=== PATIENT | male | born 1975 | race Caucasian/White ===

== ENCOUNTER → 2016-09-30 | Outpatient (CLI) | payer BC ==
--- NOTE | 2016-10-01 02:01 | RADIOLOGY REPORT (SQ) ---
EXAM DESCRIPTION: MRI CERVICAL SPINE WITHOUT COMPLETED DATE/TIME: 09/30/2016 6:43 pm REASON FOR STUDY: CERVICAL RADICULOPATHY M54.12 RADICULOPATHY, CERVICAL REGION COMPARISON: 11/18/2015 TECHNIQUE: Sagittal and Axial imaging includes T1, T2, STIR and gradient echo sequences. LIMITATIONS: None. FINDINGS: ALIGNMENT: Slight reversal the normal cervical lordotic curve. VERTEBRAE: Intact. BONE MARROW: Mild reactive endplate changes C5-6. DISCS: Loss of height and T2 signal C5-6. HARDWARE: None in the spine. CORD AND BASE OF BRAIN: Normal in size and signal intensity. SOFT TISSUES: No soft tissue masses. C1-C2: No significant spinal stenosis. C2-C3: No significant spinal stenosis or exit foraminal stenosis. C3-C4: Small disc osteophyte complex predominantly central and left paracentral. Mild anterior gopi ening of thecal sac in narrowing of the left exit foramina. C4-C5: Minimal central disc osteophyte complex. C5-C6: Disc osteophyte complex asymmetric left with mild narrowing of the left exit foramina. Mild a nterior flattening of the thecal sac. C6-C7: Large left-sided disc osteophyte complex similar to previous. Leftward flattening of the thec al sac and marked narrowing of the left exit foramina. C7-T1: No significant spinal stenosis or exit foraminal stenosis. UPPER THORACIC: Incompletely imaged. No significant spinal stenosis or exit foraminal stenosis. OTHER: No other significant finding. IMPRESSION: Significant finding at C6-7 is a large left-sided disc osteophyte complex with marked na rrowing of the left exit foramina. Similar to previous MRI. TECHNICAL DOCUMENTATION: JOB ID: [id number]- All Rights Reserved
== END ==
LOC: RAD 18:08
PROVIDERS: ATTEND Family Medicine
DX: M54.12 Radiculopathy, cervical region (principal)
CPT/HCPCS: 72141

== ENCOUNTER 2017-04-14 15:30 | Emergency (ER) | payer MEDICARE, MEDICAID ==
[2017-04-14] MEDS ORDERED: ASPIRIN 81 MG TABLET, CHEWABLE PO ONE (16:05)
--- NOTE | 2017-04-14 16:05 | ER Document Report ---
ED Medical Screen (RME) - General Chief Complaint: Breathing Difficulty Stated Complaint: BREATHING PROBLEMS Time Seen by Provider: 04/14/17 16:04 Notes: 41-year-old male. History of open heart surgery. History of [place]. Two-way bypass recently. Complaining of chest pain and shortness of breath. Familial hyperlipidemia. On multiple medications for his lipid pathology.. Patient states it feels like when he had a pneumothorax. he is a smoker. I have greeted and performed a rapid initial assessment of this patient. A comprehensive ED assessment and evaluation of the patient, analysis of test results and completion of the medical decision making process will be conducted by additional ED providers. TRAVEL OUTSIDE OF THE [place] IN LAST 30 DAYS: No - Related Data Allergies/Adverse Reactions: gabapentin [From Neurontin] Allergy (Verified 04/17/15 01:33) Past Medical History - Social History Chew tobacco use (# tins/day): No Frequency of alcohol use: None Drug Abuse: None - Past Medical History Cardiac Medical History: Reports: Hx Heart Attack, Hx Hypercholesterolemia, Hx Heart Murmur Pulmonary Medical History: Reports: Hx Pneumonia Denies: Hx Tuberculosis Neurological Medical History: Denies: Hx Seizures Renal/ Medical History: Reports: Hx Kidney Stones - mar 2010. Denies: Hx Benign Prostatic Hyperplasia, Hx End Stage Renal Disease, Hx Peritoneal Dialysis Malignancy Medical History: Denies Hx Leukemia GI Medical History: Reports: Hx Gastritis, Hx Gastroesophageal Reflux Disease, Hx Hiatal Hernia. Denies: Hx Crohn's Disease, Hx Irritable Bowel, Hx Liver Failure, Hx Pancreatitis, Hx Ulcer Musculoskeltal Medical History: Reports Hx Arthritis - back, Denies Hx Fibromyalgia, Denies Hx Muscular Dystrophy, Reports Hx Musculoskeletal Deformity , Reports Hx Musculoskeletal Trauma Psychiatric Medical History: Reports: Hx Attention Deficit Hyperactivity Disorder, Hx Bipolar Disorder, Hx Depression, Hx Post Traumatic Stress Disorder Denies: Hx Schizophrenia Traumatic Medical History: Reports: Hx Fractures - hand, left foot Infectious Medical History: Denies: Hx HIV Past Surgical History: Denies: Hx Colostomy, Hx Pacemaker - Immunizations Immunizations up to date: Yes Hx Diphtheria, Pertussis, Tetanus Vaccination: Yes Physical Exam - Vital signs Vitals: Temp Pulse Resp BP Pulse Ox 99.3 F 96 18 115/75 97 04/14/17 15:39 04/14/17 15:39 04/14/17 15:39 04/14/17 15:39 02/02/18 15:39 Course - Vital Signs Vital signs: Temp Pulse Resp BP Pulse Ox 99.3 F 96 18 115/75 97 04/14/17 15:39 04/14/17 15:39 04/14/17 15:39 04/14/17 15:39 04/14/17 15:39
--- NOTE | 2017-04-14 16:45 | RADIOLOGY REPORT (SQ) ---
EXAM DESCRIPTION: CHEST SINGLE VIEW COMPLETED DATE/TIME: 04/14/2017 4:30 pm REASON FOR STUDY: chest pain,sob COMPARISON: 01/28/2012 EXAM PARAMETERS: NUMBER OF VIEWS: One view. TECHNIQUE: Single frontal radiographic view of the chest acquired. RADIATION DOSE: NA LIMITATIONS: None. FINDINGS: LUNGS AND PLEURA: There is a small left pleural effusion, and patchy left basilar airspace disease. Right lung well inflated and clear. No right pleural effusion. No right or left pneumothorax MEDIASTINUM AND HILAR STRUCTURES: No masses. Contour normal. HEART AND VASCULAR STRUCTURES: No cardiomegaly. Sternotomy and CABG BONES: No acute findings. HARDWARE: None in the chest. OTHER: No other significant finding. IMPRESSION: Small left pleural effusion with left retrocardiac airspace disease. TECHNICAL DOCUMENTATION: JOB ID: [id number] [employer]- All Rights Reserved
[2017-04-14 16:57] LABS: ABSOLUTE EOSINOPHILS # (AUTO) 0.1 10^3/uL (0.0-0.6); ABSOLUTE LYMPHOCYTES (AUTO) 1.3 10^3/uL (0.5-4.7); ABSOLUTE MONOCYTES (AUTO) 1.3 10^3/uL (0.1-1.4); ABSOLUTE NEUT (AUTO) 12.8 10^3/uL (1.7-8.2); BASOPHILS % (AUTO) 0.1 % (0-2); EOSINOPHILS % (AUTO) 0.5 % (0-6); HEMATOCRIT 38.2 % (37.9-51.0); HEMOGLOBIN 12.5 g/dL (13.5-17.0); LYMPHOCYTES % (AUTO) 8.6 % (13-45); MEAN CORPUSCULAR HEMOGLOBIN 25.2 pg (27.0-33.4); MEAN CORPUSCULAR HGB CONC 32.7 g/dL (32.0-36.0); MEAN CORPUSCULAR VOLUME 77 fl (80-97); MONOCYTES % (AUTO) 8.1 % (3-13); PLATELET COUNT 256 10^3/uL (150-450); RED BLOOD COUNT 4.97 10^6/uL (4.35-5.55); RED CELL DISTRIBUTION WIDTH 16.3 % (11.5-14.0); SEGMENTED NEUTROPHILS % (AUTO) 82.7 % (42-78); TOTAL CELLS COUNTED % (AUTO) 100 %; WHITE BLOOD COUNT 15.4 10^3/uL (4.0-10.5)
[2017-04-14] MEDS ORDERED: NORMAL SALINE 1000 ML 1,000 ML IV ONE ×2 (16:57)
[2017-04-14 17:16] LABS: ALANINE AMINOTRANSFERASE 51 U/L (21-72); ALBUMIN 4.2 g/dL (3.5-5.0); ALKALINE PHOSPHATASE 107 U/L (38-126); ANION GAP 9 (5-19); ASPARTATE AMINO TRANSFERASE 32 U/L (17-59); BILIRUBIN,DIRECT 0.4 mg/dL (0.0-0.4); BLOOD UREA NITROGEN 9 mg/dL (7-20); CALCIUM 9.9 mg/dL (8.4-10.2); CARBON DIOXIDE 29 mmol/L (22-30); CHLORIDE 103 mmol/L (98-107); CREATINE KINASE 95 U/L (55-170); GLUCOSE 123 mg/dL (75-110); POTASSIUM 4.6 mmol/L (3.6-5.0); SODIUM 140.8 mmol/L (137-145); TOTAL PROTEIN 6.6 g/dL (6.3-8.2)
[2017-04-14 17:26] LABS: CREATINE KINASE MB 0.31 ng/mL (<4.55); TROPONIN I 0.023 ng/mL
--- NOTE | 2017-04-14 18:21 | EKG REPORT ---
SEVERITY:- ABNORMAL ECG - SINUS RHYTHM NONSPECIFIC ST-T CHANGES LATERAL LEADS, NEW FROM 04/17/15 EKG : Confirmed by: Mann Irizarry MD 14-Apr-2017 18:20:29
[2017-04-14 18:28] LABS: A TYPE INFLUENZA AG NEGATIVE (NEGATIVE); B INFLUENZA AG NEGATIVE (NEGATIVE)
--- NOTE | 2017-04-14 19:08 | RADIOLOGY REPORT (SQ) ---
EXAM DESCRIPTION: CTA CHEST COMPLETED DATE/TIME: 04/14/2017 6:50 pm REASON FOR STUDY: recent by pass cp sob COMPARISON: None. TECHNIQUE: CT scan of the chest performed using helical scanning technique with dynamic intravenous contrast injection. Images reviewed with lung, soft tissue and bone windows. Reconstructed coronal and sagittal MPR images reviewed. Additional 3 dimensional post-processing performed to develop Maximal Intensity Projection images (TN P). All images stored on PACS. All CT scanners at this facility use dose modulation, iterative reconstruction, and/or weight based d osing when appropriate to reduce radiation dose to as low as reasonably achievable (ALARA). [facility]: Dose Right [facility]: CareDose [facility]: Dose Right [facility]: Teradose 4D [facility]: [employer] CONTRAST TYPE AND DOSE: contrast/concentration: Isovue 370.00 mg/ml; Total Contrast Delivered: 76.0 ml; Total Saline Delivered: 80.0 ml Contrast bolus adequate for pulmonary arteries and aorta. RENAL FUNCTION: BUN 9 creatinine 0.97. RADIATION DOSE: CT Rad equipment meets quality standard of care and radiation dose reduction techniq ues were employed. CTDIvol: 16.7 - 24.8 mGy. DLP: 604 mGy-cm. . LIMITATIONS: None. FINDINGS: LUNGS AND PLEURA: Small right pleural effusion and moderate left pleural effusion. Basila r atelectasis, left greater than right. AORTA AND GREAT VESSELS: No aneurysm. No dissection. HEART: Pericardial effusion. No significant coronary artery calcifications. PULMONARY ARTERIES: No emboli visualized in the main pulmonary arteries or the segmental branches. HILAR AND MEDIASTINAL STRUCTURES: No identified masses or abnormal nodes. HARDWARE: Sternotomy wires. Surgical clips. UPPER ABDOMEN: No significant findings. Limited exam. THYROID AND OTHER SOFT TISSUES: No masses. No adenopathy. BONES: No acute or significant finding. 3D MIPS: Confirm above findings. OTHER: No other significant finding. IMPRESSION: 1. NORMAL CTA OF THE CHEST. NO PULMONARY EMBOLI. 2. SMALL RIGHT PLEURAL EFFUSION AND MODERATE LEFT PLEURAL EFFUSION. BASILAR ATELECTASIS. 3. PERICARDIAL EFFUSION. COMMENT: Quality ID # [id number]: Final reports with documentation of one or more dose reduction techniques (e.g., Automated exposure control, adjustment of the mA and/or kV according to patient size, use of iterative reconstruction technique) TECHNICAL DOCUMENTATION: JOB ID: [id number]- All Rights Reserved
[2017-04-14] MEDS ORDERED: FUROSEMIDE INJ/PF 20 MG/2 ML SDV IV ONE (21:13)
[2017-04-14] MEDS ORDERED: FENTANYL CITRATE INJ/PF 100 MCG/2 ML AMPUL IV ONE (21:13)
[2017-04-14 23:12] VITALS: BP 103/69
--- NOTE | 2017-04-15 00:34 | ER Document Report ---
ED General - General Chief Complaint: Breathing Difficulty Stated Complaint: BREATHING PROBLEMS Time Seen by Provider: 04/14/17 16:04 TRAVEL OUTSIDE OF THE [place] IN LAST 30 DAYS: No - HPI Patient complains to provider of: Difficulty breathing Notes: Patient coming in with difficulty breathing ongoing for the last 2 days worse today. Patient states recently had bypass surgery performed at [facility] and two- vessel performed in January. Patient states that she was on Lasix and blood thinning medication however currently is not on any medication. Patient denies any recent travel. Denies any fevers or chills denies cough. Patient upon my evaluation does look to be uncomfortable patient does complain of some back pain. Patient denies any anterior chest wall pain. Patient states shortness of breath - Related Data Allergies/Adverse Reactions: gabapentin [From Neurontin] Allergy (Verified 04/17/15 01:33) Past Medical History - Social History Smoking Status: Current Some Day Smoker Chew tobacco use (# tins/day): No Frequency of alcohol use: None Drug Abuse: None Family History: Reviewed & Not Pertinent Patient has suicidal ideation: No Patient has homicidal ideation: No - Past Medical History Cardiac Medical History: Reports: Hx Heart Attack, Hx Hypercholesterolemia, Hx Heart Murmur Pulmonary Medical History: Reports: Hx Pneumonia Denies: Hx Tuberculosis Neurological Medical History: Denies: Hx Seizures Renal/ Medical History: Reports: Hx Kidney Stones - mar 2010. Denies: Hx Benign Prostatic Hyperplasia, Hx End Stage Renal Disease, Hx Peritoneal Dialysis Malignancy Medical History: Denies Hx Leukemia GI Medical History: Reports: Hx Gastritis, Hx Gastroesophageal Reflux Disease, Hx Hiatal Hernia. Denies: Hx Crohn's Disease, Hx Irritable Bowel, Hx Liver Failure, Hx Pancreatitis, Hx Ulcer Musculoskeltal Medical History: Reports Hx Arthritis - back, Denies Hx Fibromyalgia, Denies Hx Muscular Dystrophy, Reports Hx Musculoskeletal Deformity , Reports Hx Musculoskeletal Trauma Psychiatric Medical History: Reports: Hx Attention Deficit Hyperactivity Disorder, Hx Bipolar Disorder, Hx Depression, Hx Post Traumatic Stress Disorder Denies: Hx Schizophrenia Traumatic Medical History: Reports: Hx Fractures - hand, left foot Infectious Medical History: Denies: Hx HIV Past Surgical History: Denies: Hx Colostomy, Hx Pacemaker - Immunizations Immunizations up to date: Yes Hx Diphtheria, Pertussis, Tetanus Vaccination: Yes Review of Systems - Review of Systems Constitutional: No symptoms reported EENT: No symptoms reported Cardiovascular: No symptoms reported Respiratory: Short of breath Gastrointestinal: No symptoms reported Genitourinary: No symptoms reported Male Genitourinary: No symptoms reported Musculoskeletal: No symptoms reported Skin: No symptoms reported Hematologic/Lymphatic: No symptoms reported Neurological/Psychological: No symptoms reported -: Yes All other systems reviewed and negative Physical Exam - Vital signs Vitals: Temp Pulse Resp BP Pulse Ox 99.3 F 96 18 115/75 97 04/14/17 15:39 04/14/17 15:39 04/14/17 15:39 04/14/17 15:39 04/14/17 15:39 Interpretation: Hypotensive, Tachycardic - General General appearance: Appears well, Alert - HEENT Head: Normocephalic, Atraumatic Eyes: Normal Pupils: PERRL - Respiratory Respiratory status: No respiratory distress Chest status: Nontender Breath sounds: Normal Chest palpation: Normal - Cardiovascular Rhythm: Regular, Tachycardia Heart sounds: Normal auscultation Murmur: No - Abdominal Inspection: Normal Distension: No distension Bowel sounds: Normal Tenderness: Nontender Organomegaly: No organomegaly - Back Back: Normal, Nontender - Extremities General upper extremity: Normal inspection, Nontender, Normal color, Normal ROM , Normal temperature General lower extremity: Normal inspection, Nontender, Normal color, Normal ROM , Normal temperature, Normal weight bearing. No: Tai's sign - Neurological Neuro grossly intact: Yes Cognition: Normal Orientation: AAOx4 [place] Coma Scale Eye Opening: Spontaneous Mo Coma Scale Verbal: Oriented Mo Coma Scale Motor: Obeys Commands Mo Coma Scale Total: 15 Speech: Normal Motor strength normal: LUE, RUE, LLE, RLE Sensory: Normal - Psychological Associated symptoms: Normal affect, Normal mood - Skin Skin Temperature: Warm Skin Moisture: Dry Skin Color: Normal Course - Re-evaluation Re-evalutation: 04/15/17 00:31 pt laboratory studies not reveal any significant pathology except for an elevated white count. Patient states chest x-ray possibly showed some possible retrocardiac airspace disease however due to the patient's recent surgery tachycardia low blood pressure felt that a CTA was warranted. CTA showed right and left pleural effusions with a moderate pericardial effusion. Because of tachycardia and marginal blood pressure concern for possible tap and not there and other significant pathology. Initially contacted [facility] waterworks chief engineer byron. No direct recommendations were given during a conversation. I did discuss with her hospitalist however due to lack of cardiology our facility were not able to care for this patient therefore I contacted [facility] again recommended that we transfer the patient to their facility is that this was our scope of practice we do not have especially coverage to admit this patient needs as I am concerned for possible decompensation with the patient's pericardial effusion patient was instructed patient time of transfer stable able to give a thumbs up vital signs no significant change - Vital Signs Vital signs: Temp Pulse Resp BP Pulse Ox 99.9 F 119 H 22 H 103/69 94 04/14/17 23:18 04/14/17 23:18 04/14/17 23:18 04/14/17 23:18 04/14/17 23:18 - Laboratory Result Diagrams: 04/14/17 16:37 04/14/17 16:37 Laboratory results interpreted by me: 04/14/17 04/14/17 04/14/17 16:37 16:37 16:37 WBC 15.4 H Hgb 12.5 L MCV 77 L MCH 25.2 L RDW 16.3 H Seg Neutrophils % 82.7 H Lymphocytes % 8.6 L Absolute Neutrophils 12.8 H Glucose 123 H Total Bilirubin 2.0 H NT-Pro-B Natriuret Pep 565 H Discharge - Discharge Clinical Impression: Pericardial effusion, Bilateral pleural effusion Dyspnea Qualifiers: Dyspnea type: unspecified Qualified Code(s): R06.00 - Dyspnea, unspecified Condition: Stable Disposition: [facility]
== END 2017-04-14 23:17 | disposition short-term general hospital (02) ==
LOC: ER 15:30
DX: J90 Pleural effusion, not elsewhere classified (principal); R06.00 Dyspnea, unspecified; F17.200 Nicotine dependence, unspecified, uncomplicated; E78.00 Pure hypercholesterolemia, unspecified; I25.2 Old myocardial infarction
CPT/HCPCS: 93005; 99285; 96361; 96374; 96375; 36415; 82553; 82550; 85025; 80053; 84484; 87804; 83880; 71045; 71275; 93010; A9270; J3010; J1940; J7030

== ENCOUNTER 2017-06-20 04:31 | Emergency (ER) | payer MEDICARE, MEDICAID ==
--- NOTE | 2017-06-20 04:52 | ER Document Report ---
Doctor's Note Notes: 06/20/17 04:51 Performed a quick triage evaluation the patient. Patient is a 41-year-old male with a history of previous fluid around the lungs and heart as well as previous pneumothorax. These occurred after he had coronary bypass surgery in January of last year. He says over last 3 days he has had progressive worsening shortness of breath and also some pain when he takes a deep breath more in the right side. No other chest pain. Said he did have some chills earlier today but did not check his temp. On exam his lung [place] are clear. He is in no distress. I have ordered blood work as well as x-ray of his chest and EKG.
--- NOTE | 2017-06-20 05:08 | RADIOLOGY REPORT (SQ) ---
EXAM DESCRIPTION: CHEST SINGLE VIEW CLINICAL HISTORY: 41 years Male, dyspnea COMPARISON: 2.2.18 NUMBER OF VIEWS/TECHNIQUE: 1/AP FINDINGS: Normal lung volume, clear parenchyma, normal cardiac silhouette, and intact bony thorax. Sternotomy. IMPRESSION: No acute cardiopulmonary findings.
[2017-06-20 05:30] LABS: ABSOLUTE EOSINOPHILS # (AUTO) 0.2 10^3/uL (0.0-0.6); ABSOLUTE MONOCYTES (AUTO) 1.4 10^3/uL (0.1-1.4); ABSOLUTE NEUT (AUTO) 9.5 10^3/uL (1.7-8.2); BASOPHILS % (AUTO) 0.3 % (0-2); EOSINOPHILS % (AUTO) 1.4 % (0-6); HEMATOCRIT 39.4 % (37.9-51.0); HEMOGLOBIN 12.8 g/dL (13.5-17.0); LYMPHOCYTES % (AUTO) 15.4 % (13-45); MEAN CORPUSCULAR HEMOGLOBIN 25.3 pg (27.0-33.4); MEAN CORPUSCULAR HGB CONC 32.6 g/dL (32.0-36.0); MEAN CORPUSCULAR VOLUME 78 fl (80-97); MONOCYTES % (AUTO) 10.6 % (3-13); PLATELET COUNT 229 10^3/uL (150-450); RED BLOOD COUNT 5.08 10^6/uL (4.35-5.55); RED CELL DISTRIBUTION WIDTH 16.4 % (11.5-14.0); SEGMENTED NEUTROPHILS % (AUTO) 72.3 % (42-78); TOTAL CELLS COUNTED % (AUTO) 100 %; WHITE BLOOD COUNT 13.2 10^3/uL (4.0-10.5)
[2017-06-20 05:37] LABS: INTERNATIONAL RATION (INR) 0.96; PROTHROMBIN TIME 13.3 SEC (11.4-15.4)
[2017-06-20 05:38] LABS: PARTIAL THROMBOPLASTIN TIME 33.9 SEC (23.5-35.8)
[2017-06-20 05:45] LABS: ALANINE AMINOTRANSFERASE 23 U/L (21-72); ALBUMIN 3.9 g/dL (3.5-5.0); ALKALINE PHOSPHATASE 64 U/L (38-126); ANION GAP 7 (5-19); ASPARTATE AMINO TRANSFERASE 16 U/L (17-59); BILIRUBIN,DIRECT 0.1 mg/dL (0.0-0.4); BILIRUBIN,TOTAL 0.8 mg/dL (0.2-1.3); BLOOD UREA NITROGEN 13 mg/dL (7-20); CALCIUM 9.5 mg/dL (8.4-10.2); CARBON DIOXIDE 29 mmol/L (22-30); CHLORIDE 105 mmol/L (98-107); GLUCOSE 131 mg/dL (75-110); POTASSIUM 3.9 mmol/L (3.6-5.0); SODIUM 140.8 mmol/L (137-145); TOTAL PROTEIN 5.9 g/dL (6.3-8.2)
--- NOTE | 2017-06-20 06:41 | ER Document Report ---
ED General - General Mode of Arrival: Ambulatory Information source: Patient TRAVEL OUTSIDE OF THE [place] IN LAST 30 DAYS: No <ROBERTO MCGILL - Last Filed: 06/20/17 15:24> <YENNIFER KLINE - Last Filed: 06/20/17 17:11> - General Chief Complaint: Shortness Of Breath Stated Complaint: DIFFICULTY BREATHING Time Seen by Provider: 06/20/17 04:50 Notes: Patient is a 41 year old male with a history of pericardial effusion, pneumothroax, coronary bypass and high cholesterol presents to the emergency department complaining of worsening shortness of breath onset 3 days ago. Patient states his shortness of breath is exacerbated when supine and relived when sitting up. He further states that his symptoms are similar to his previous pericardial effusion. Patients associated symptoms include chest pressure, vomiting x2 and fevers. Patient denies any cough, rhinorrhea, earaches or diarrhea. (ROBERTO MCGILL) - Related Data Allergies/Adverse Reactions: gabapentin [From Neurontin] Allergy (Verified 04/17/15 01:33) Past Medical History - General Information source: Patient - Social History Smoking Status: Current Every Day Smoker - attempting to quit Frequency of alcohol use: None Drug Abuse: Cocaine - previous use Family History: Reviewed & Not Pertinent Patient has suicidal ideation: No Patient has homicidal ideation: No - Past Medical History Cardiac Medical History: Reports: Hx Heart Attack, Hx Hypercholesterolemia, Hx Heart Murmur Pulmonary Medical History: Reports: Hx Pneumonia Renal/ Medical History: Reports: Hx Kidney Stones - mar 2010 GI Medical History: Reports: Hx Gastritis, Hx Gastroesophageal Reflux Disease, Hx Hiatal Hernia Musculoskeltal Medical History: Reports Hx Arthritis - back, Reports Hx Musculoskeletal Deformity, Reports Hx Musculoskeletal Trauma Psychiatric Medical History: Reports: Hx Attention Deficit Hyperactivity Disorder, Hx Bipolar Disorder, Hx Depression, Hx Post Traumatic Stress Disorder Traumatic Medical History: Reports: Hx Fractures - hand, left foot - Immunizations Immunizations up to date: Yes Hx Diphtheria, Pertussis, Tetanus Vaccination: Yes <ROBERTO MCGILL - Last Filed: 06/20/17 15:24> Review of Systems - Review of Systems Constitutional: See HPI, Fever - peak 100 EENT: No symptoms reported Cardiovascular: See HPI, Chest pain Respiratory: See HPI, Short of breath Gastrointestinal: See HPI, Vomiting Genitourinary: No symptoms reported Male Genitourinary: No symptoms reported Musculoskeletal: No symptoms reported Skin: No symptoms reported Hematologic/Lymphatic: No symptoms reported Neurological/Psychological: No symptoms reported -: Yes All other systems reviewed and negative <ROBERTO MCGILL - Last Filed: 06/20/17 15:24> Physical Exam <ROBERTO MCGILL - Last Filed: 06/20/17 15:24> <YENNIFER KLINE - Last Filed: 06/20/17 17:11> - Vital signs Vitals: Temp Pulse Resp BP Pulse Ox 99.3 F 91 20 101/64 95 06/20/17 04:35 06/20/17 04:35 06/20/17 04:35 06/20/17 04:35 06/20/17 04:35 - Notes Notes: GENERAL: Alert, interacts well. Appears uncomfortable. HEAD: Normocephalic, atraumatic. EYES: Pupils equal, round, and reactive to light. Extraocular movements intact. ENT: Oral mucosa moist, tongue midline. NECK: Full range of motion. Supple. Trachea midline. LUNGS: Expiratory rhonchi in the right lower lobes. No respiratory distress. HEART: Regular rate and rhythm. No murmurs, gallops, or rubs. ABDOMEN: Soft, non-tender. Non-distended. Bowel sounds present in all 4 quadrants. EXTREMITIES: Moves all 4 extremities spontaneously. No edema, radial and dorsalis pedis pulses 2/4 bilaterally. No cyanosis. NEUROLOGICAL: Alert and oriented x3. Normal speech. PSYCH: Appears mildly anxious. SKIN: Warm, dry, normal turgor. No rashes or lesions noted. (ARTEMROBERTO) Course - Laboratory Result Diagrams: 06/20/17 05:16 06/20/17 05:16 <ARTEM,ANNELISEJOANNE - Last Filed: 06/20/17 15:24> - Laboratory Result Diagrams: 06/20/17 05:16 06/20/17 05:16 <YENNIFER KLINE - Last Filed: 06/20/17 17:11> - Re-evaluation Re-evalutation: 06/20/17 11:46 CBC shows leukocytosis of 13.2, mild anemia with hemoglobin 12.8, platelets normal, coags normal, CMP unremarkable, troponin undetectable, ESR is elevated at 22, CRP elevated at 128.6. CTA of the chest reveals moderate pericardial effusion but no evidence of pulmonary embolism. Chest x-ray unremarkable. Discussed with Dr. Xavier who recommends echocardiogram, he read the echocardiogram and states that there is no evidence of tamponade but there is some evidence of restriction there is greater than 25% variation with inspiration and expiration. He states the patient can likely be treated as an outpatient unless the patient has fevers. Patient is currently complaining of sweats and chills at home as well as myalgias, temperature here does not meet fever criteria however at home he states he had a temperature of 100 point something but he does not remember the decimal. At this point I am concerned for the possibility of septic pericarditis and will consult with cardiology versus cardiothoracic surgery at [facility] for further guidance. Patient is not currently hypotensive, he is tachycardic but I feel this may be more related to pain. Does not meet sepsis criteria at this point. Patient will be given initial broad-spectrum antibiotic coverage in the form of cefepime. 06/20/17 13:02 I discussed the patient with Dr. Link from [facility] cardiology, he accepts the patient to his service, recommends holding off on antibiotics until they know exactly what is going on. Patient is continued to have pain and is now having nausea, patient will be given morphine and Zofran as well as gentle fluids. Patient has now developed a true fever 100.8 axillary. Patient will be given IV acetaminophen as well. 06/20/17 13:22 Patient now hypoxic with a pulse oximeter of 89% on room air, 2 L via nasal cannula has been added, he is responding well to this and is 95% on 2 L. Called the cardiac connection line at [facility] and updated Jhoana on changes and asked her to update Dr. Link. Requested that she ask if he wanted me to give antibiotics after all. Fluids have been stopped. 06/20/17 17:10 Patient has had no further decompensation, heart rate is 102, blood pressure is 112/87, pulse ox is 96% on 2 L. Patient is again given a another dose of morphine for pain along with Zofran. Patient's case has been signed over to Dr. Dillon. I did call to [facility] transfer center and they state they still expect a bed this evening, they have several other discharges and he is the next one waiting for a bed. EMTALA paperwork has been filled out. (YENNIFER KLINE ) - Vital Signs Vital signs: Temp Pulse Resp BP Pulse Ox 100.4 F 91 27 H 113/92 H 94 06/20/17 12:44 06/20/17 04:35 06/20/17 16:31 06/20/17 16:31 06/20/17 16:31 - Laboratory Laboratory results interpreted by me: 06/20/17 06/20/17 06/20/17 05:16 05:16 05:16 WBC 13.2 H Hgb 12.8 L MCV 78 L MCH 25.3 L RDW 16.4 H Absolute Neutrophils 9.5 H ESR 22 H Glucose 131 H AST 16 L C-Reactive Protein Total Protein 5.9 L 06/20/17 05:16 WBC Hgb MCV MCH RDW Absolute Neutrophils ESR Glucose AST C-Reactive Protein 128.6 H Total Protein - EKG Interpretation by Me Additional EKG results interpreted by me: 06/20/17 13:03 EKG shows sinus rhythm at a rate of 81, normal axis, normal intervals, no ST segment depressions, minimal ST segment elevation in lead III, no reciprocal changes per my interpretation. (YENNIFER KLINE) Discharge <ROBERTO MCGILL - Last Filed: 06/20/17 15:24> <YENNIFER KLINE - Last Filed: 06/20/17 17:11> - Discharge Clinical Impression: Pericardial effusion without cardiac tamponade Pericarditis Qualifiers: Pericarditis type: unspecified type Chronicity: acute Qualified Code(s): I30.9 - Acute pericarditis, unspecified Condition: Fair Disposition: [facility] Referrals: REY HERNANDEZ MD [Primary Care Provider] - Follow up as needed Scribe Attestation: 06/20/17 17:11 I personally performed the services described in the documentation, reviewed and edited the documentation which was dictated to the scribe in my presence, and it accurately records my words and actions. (YENNIFER KLINE) Scribe Documentation - Scribe Written by Scribe:: Rocky Mott, 06/20/2017 07:19 acting as scribe for :: Dandy <ROBERTO MCGILL - Last Filed: 06/20/17 15:24>
--- NOTE | 2017-06-20 07:27 | EKG REPORT ---
SEVERITY:- ABNORMAL ECG - SINUS RHYTHM NONSPECIFIC T ABNORMALITIES, LATERAL LEADS UNCHANGED FROM 04/14/17 EKG : Confirmed by: Mann Irizarry MD 20-Jun-2017 07:27:02
--- NOTE | 2017-06-20 07:32 | RADIOLOGY REPORT (SQ) ---
EXAM DESCRIPTION: CTA CHEST CLINICAL HISTORY: 41 years Male, pleuritic chest pain, SOB, EVAL PE COMPARISON: 2.2 TECHNIQUE: IV contrast. Multiplanar reformat. This exam was performed according to our departmental dose-optimization program, which includes automated exposure control, adjustment of the mA and/or kV according to patient size and/or use of iterative reconstruction technique. FINDINGS: Moderate pericardial fluid. No pulmonary embolus. No right ventricular strain. Sternotomy. Coronary arterial calcification stent. Inferior neck, axillae, mediastinum, lungs, airway, lymphatics, heart, vasculature, upper abdomen, and musculoskeleton appear otherwise unremarkable. Impression: Moderate pericardial fluid. No pulmonary embolus.
[2017-06-20] MEDS ORDERED: MORPHINE SULFATE 10 MG/ML INJ IV ONE ×4 (08:27→16:33)
--- NOTE | 2017-06-20 11:31 | XCELERA REPORT ---
[address] [address] Transthoracic Echocardiogram Report Name: TRINA CORBETT Age: 41 yrs Gender: Male : 1975 Patient Status: Emergency Patient Location: ER Study Date: 06/20/2017 08:31 AM Height: 68 in Weight: 193 lb BSA: 2.0 m2 Procedure: A complete two-dimensional transthoracic echocardiogram was performed (2D, M-mode, spectral and color flow Doppler). The study was technically adequate with some images being suboptimal in quality. Reason For Study: pericardial effusion and pericarditis Ordering Physician: YENNIFER KLINE Performed By: Ashli Farooq Interpretation Summary The left ventricle is grossly normal size. LV diastolic function could not be adequately assessed. Wall motion cannot be accurately commented on, but no definite regional wall motion abnormalities noted. The right ventricle is grossly normal size. There is normal right ventricular wall thickness. The right atrium is normal in size The left atrial size is normal. There is no mitral valve stenosis. There is a trace amount of mitral regurgitation There is no aortic valve stenosis No aortic regurgitation is present. There is a trace or physiologic amount of tricuspid regurgitation Tricuspid regurgitation jet envelope not well defined to measure RV systolic pressure accurately. The aortic root is not well visualized but is probably normal size. The inferior vena cava appeared normal and decreased > 50% with respiration (RAP 5-10 mmHg) Small pericardial effusion. There are no echocardiographic or Doppler indications for cardiac tamponade. Exaggerated respiratory variation noted in Mitral inflow suggestive of pericardial constricion but not definitive, clinical correlation requested. MMode/2D Measurements & Calculations RVDd: 2.9 cm LVIDd: 4.6 cm FS: 42.4 % Ao root diam: 3.2 cm IVSd: 0.94 cm LVIDs: 2.6 cm EDV(Teich): 97.2 ml LVPWd: 0.88 cmESV(Teich): 25.7 ml Ao root area: 8.2 cm2 EF(Teich): 73.5 % LVOT diam: 2.4 cm LVOT area: 4.5 cm2 Doppler Measurements & Calculations MV E max jj: MV dec slope: Ao V2 max: LV V1 max P.2 cm/sec 536.5 cm/sec2 152.3 cm/sec 5.4 mmHg MV A max jj: MV dec time: Ao max PG: LV V1 max: 72.3 cm/sec 0.18 sec 9.3 mmHg 115.9 cm/sec MV E/A: 1.3 NGHIA(V,D): 3.5 cm2 PA V2 max: TR max jj: 105.8 cm/sec 254.6 cm/sec PA max PG: TR max P.9 mmHg 4.5 mmHg Left Ventricle The left ventricle is grossly normal size. There is normal left ventricular wall thickness. The left ventricular ejection fraction is normal. LV diastolic function could not be adequately assessed. Wall motion cannot be accurately commented on, but no definite regional wall motion abnormalities noted. Right Ventricle The right ventricle is grossly normal size. There is normal right ventricular wall thickness. The right ventricular systolic function is normal. Atria The right atrium is normal in size. The left atrial size is normal. Interarterial septum not well visualized and not well dopplered. Cannot comment on ASD/PFO presence. Mitral Valve The mitral valve leaflets are sclerotic, but show no functional abnormalities. There is no mitral valve stenosis. There is a trace amount of mitral regurgitation. Aortic Valve The aortic valve is grossly normal. There is no aortic valve stenosis. No aortic regurgitation is present. Tricuspid Valve The tricuspid valve is not well visualized, but is grossly normal. There is no tricuspid stenosis. There is a trace or physiologic amount of tricuspid regurgitation. Tricuspid regurgitation jet envelope not well defined to measure RV systolic pressure accurately. Pulmonic Valve The pulmonic valve is not well visualized. Great Vessels The aortic root is not well visualized but is probably normal size. The inferior vena cava appeared normal and decreased > 50% with respiration (RAP 5-10 mmHg). Effusions Small pericardial effusion. There are no echocardiographic or Doppler indications for cardiac tamponade. : YENNIFER KLINE > Desi Xavier
[2017-06-20] MEDS ORDERED: CEFEPIME 2 GM/D5W RTU 2 GM/50 ML RTUPB IV ONE (11:47)
[2017-06-20] MEDS ORDERED: ONDANSETRON HCL INJ/PF 4 MG/2 ML SDV IV ONE ×2 (12:53→16:33)
[2017-06-20] MEDS ORDERED: NORMAL SALINE 1000 ML 1,000 ML IV ONE (12:53)
[2017-06-20] MEDS ORDERED: ACETAMINOPHEN 100 ML IV ONE (12:53)
[2017-06-20 20:25] VITALS: BP 104/79
== END 2017-06-20 21:24 | disposition short-term general hospital (02) ==
LOC: ER 04:31
DX: J90 Pleural effusion, not elsewhere classified (principal); I30.9 Acute pericarditis, unspecified; R00.0 Tachycardia, unspecified; R06.02 Shortness of breath; R50.9 Fever, unspecified; F17.200 Nicotine dependence, unspecified, uncomplicated; E78.00 Pure hypercholesterolemia, unspecified; Z95.1 Presence of aortocoronary bypass graft; Z87.442 Personal history of urinary calculi; I25.2 Old myocardial infarction
CPT/HCPCS: 93005; 96376; 99285; 96361; 96374; 96375; 96365; 36415; 87040; 85025; 85652; 85610; 85730; 86140; 80053; 84484; 93306; 71045; 71275; 93010; J2270; J2405; J7030; J0131

== ENCOUNTER 2017-07-11 14:49 | Emergency (ER) | payer MEDICARE, MEDICAID ==
--- NOTE | 2017-07-11 14:58 | ER Document Report ---
ED General - General Stated Complaint: HIGH BLOOD PRESSURE Time Seen by Provider: 07/11/17 14:54 Mode of Arrival: Medic Information source: Patient, PENDING SALE TO [facility] Records Notes: 41-year-old male history of pericardial effusion double bypass last heart catheterization January presents with complaints of low blood pressure generalized weakness. Patient was found by EMS to have a hear rate of 28, appeared to pale weak blood pressures 80/53. Patient himself denies having low heart rate except after his first cardiac surgery, patient is on metoprolol 25 mg twice daily which he states he has been taking appropriately Patient had recent CT which noted small effusion pericardial TRAVEL OUTSIDE OF THE [place] IN LAST 30 DAYS: No - HPI Onset: Just prior to arrival Onset/Duration: Sudden Quality of pain: No pain Severity: Moderate Pain Level: Denies Associated symptoms: Weakness, Other Exacerbated by: Denies Relieved by: Denies Similar symptoms previously: Yes Recently seen / treated by doctor: Yes - Related Data Allergies/Adverse Reactions: gabapentin [From Neurontin] Allergy (Verified 07/11/17 15:17) Past Medical History - Social History Smoking Status: Never Smoker Cigarette use (# per day): No Chew tobacco use (# tins/day): No Smoking Education Provided: No Family History: Reviewed & Not Pertinent - Past Medical History Cardiac Medical History: Reports: Hx Heart Attack, Hx Hypercholesterolemia, Hx Heart Murmur Pulmonary Medical History: Reports: Hx Pneumonia Denies: Hx Tuberculosis Neurological Medical History: Denies: Hx Seizures Renal/ Medical History: Reports: Hx Kidney Stones - mar 2010. Denies: Hx Benign Prostatic Hyperplasia, Hx End Stage Renal Disease, Hx Peritoneal Dialysis Malignancy Medical History: Denies Hx Leukemia GI Medical History: Reports: Hx Gastritis, Hx Gastroesophageal Reflux Disease, Hx Hiatal Hernia. Denies: Hx Crohn's Disease, Hx Irritable Bowel, Hx Liver Failure, Hx Pancreatitis, Hx Ulcer Musculoskeltal Medical History: Reports Hx Arthritis - back, Denies Hx Fibromyalgia, Denies Hx Muscular Dystrophy, Reports Hx Musculoskeletal Deformity , Reports Hx Musculoskeletal Trauma Psychiatric Medical History: Reports: Hx Attention Deficit Hyperactivity Disorder, Hx Bipolar Disorder, Hx Depression, Hx Post Traumatic Stress Disorder Denies: Hx Schizophrenia Traumatic Medical History: Reports: Hx Fractures - hand, left foot Infectious Medical History: Denies: Hx HIV Past Surgical History: Denies: Hx Colostomy, Hx Pacemaker - Immunizations Immunizations up to date: Yes Hx Diphtheria, Pertussis, Tetanus Vaccination: Yes Review of Systems - Review of Systems Notes: REVIEW OF SYSTEMS: CONSTITUTIONAL : Denies fever, chills, or sweats. Denies recent illness. EENT: Denies eye, ear, throat, or mouth pain or symptoms. Denies nasal or sinus congestion or discharge. Denies throat, tongue, or mouth swelling or difficulty swallowing. CARDIOVASCULAR: Denies chest pain. Denies palpitations or racing or irregular heart beat. Denies ankle edema. RESPIRATORY: Denies cough, cold, or chest congestion. Denies shortness of breath, difficulty breathing, or wheezing. GASTROINTESTINAL: Denies abdominal pain or distention. Denies nausea, vomiting , or diarrhea. Denies blood in vomitus, stools, or per rectum. Denies black, tarry stools. Denies constipation. GENITOURINARY: Denies difficulty urinating, painful urination, burning, frequency, blood in urine, or discharge. MUSCULOSKELETAL: Denies back or neck pain or stiffness. Denies joint pain or swelling. SKIN: Denies rash, lesions or sores. HEMATOLOGIC : Denies easy bruising or bleeding. LYMPHATIC: Denies swollen, enlarged glands. NEUROLOGICAL: Admits to generalized weakness PSYCHIATRIC: Denies anxiety or stress. Denies depression, suicidal ideation, or homicidal ideation. ALL OTHER SYSTEMS REVIEWED AND NEGATIVE. Dictation was performed using [employer] voice recognition software PHYSICAL EXAMINATION: GENERAL: Well-appearing, well-nourished and in no acute distress. HEAD: Atraumatic, normocephalic. EYES: Pupils equal round and reactive to light, extraocular movements intact, sclera anicteric, conjunctiva are normal. ENT: Nares patent, oropharynx clear without exudates. Moist mucous membranes. NECK: Normal range of motion, supple without lymphadenopathy LUNGS: Breath sounds clear to auscultation bilaterally and equal. No wheezes rales or rhonchi. HEART: Regular rate and rhythm without murmurs, bedside ultrasound performed by myself notes only a small pericardial effusion there is no cardiac tamponade noted ABDOMEN: Soft, nontender, nondistended abdomen. No guarding, no rebound. No masses appreciated. Musculoskeletal: Normal range of motion, no pitting or edema. No cyanosis. NEUROLOGICAL: Cranial nerves grossly intact. Normal speech, normal gait. Normal sensory, motor exams PSYCH: Normal mood, normal affect. SKIN: Warm, Dry, normal turgor, no rashes or lesions noted. Physical Exam - Vital signs Vitals: Temp Resp BP Pulse Ox 98.2 F 15 85/53 L 100 07/11/17 15:08 07/11/17 15:08 07/11/17 15:08 07/11/17 15:08 Course - Re-evaluation Re-evalutation: 07/11/17 15:21 Patient's evaluation is concerning especially with his bradycardia and hypotension, pt will be placed on transcutaneous pacer pads . 07/11/17 15:45 [facility] consulted for transfer 07/11/17 16:36 Dr Richards cardio willing to take patient but requests hospitlaist admission 07/11/17 18:04 dr leal will accept transfer to [facility] - Vital Signs Vital signs: Temp Pulse Resp BP Pulse Ox 98.2 F 17 89/51 L 98 07/11/17 15:08 07/11/17 17:31 07/11/17 17:31 07/11/17 17:31 - Laboratory Result Diagrams: 07/11/17 14:30 07/11/17 14:30 Laboratory results interpreted by me: 07/11/17 07/11/17 14:30 14:30 Hgb 12.8 L MCV 78 L MCH 25.5 L RDW 16.4 H Sodium 148.2 H Chloride 111 H Total Protein 5.8 L Critical Care Note - Critical Care Note Total time excluding time spent on procedures (mins): 48 Comments: minutes of critical care time spent in direct contact evaluating and reevaluating the patient, treating symptoms, reviewing labs and studies and speaking with family and consultants excluding any procedures Discharge - Discharge Clinical Impression: Bradycardia Hypotension Qualifiers: Hypotension type: unspecified hypotension type Qualified Code(s): I95.9 - Hypotension, unspecified Condition: Fair Disposition: [facility] Referrals: REY HERNANDEZ MD [Primary Care Provider] - Follow up as needed
[2017-07-11 15:01] LABS: ABSOLUTE EOSINOPHILS # (AUTO) 0.1 10^3/uL (0.0-0.6); ABSOLUTE LYMPHOCYTES (AUTO) 1.6 10^3/uL (0.5-4.7); ABSOLUTE MONOCYTES (AUTO) 0.7 10^3/uL (0.1-1.4); ABSOLUTE NEUT (AUTO) 6.9 10^3/uL (1.7-8.2); BASOPHILS % (AUTO) 0.3 % (0-2); EOSINOPHILS % (AUTO) 1.4 % (0-6); HEMOGLOBIN 12.8 g/dL (13.5-17.0); LYMPHOCYTES % (AUTO) 17.2 % (13-45); MEAN CORPUSCULAR HEMOGLOBIN 25.5 pg (27.0-33.4); MEAN CORPUSCULAR HGB CONC 32.9 g/dL (32.0-36.0); MEAN CORPUSCULAR VOLUME 78 fl (80-97); MONOCYTES % (AUTO) 7.4 % (3-13); PLATELET COUNT 281 10^3/uL (150-450); RED BLOOD COUNT 5.03 10^6/uL (4.35-5.55); RED CELL DISTRIBUTION WIDTH 16.4 % (11.5-14.0); SEGMENTED NEUTROPHILS % (AUTO) 73.7 % (42-78); TOTAL CELLS COUNTED % (AUTO) 100 %; WHITE BLOOD COUNT 9.4 10^3/uL (4.0-10.5)
[2017-07-11] MEDS ORDERED: NORMAL SALINE 1000 ML 1,000 ML IV ONE (15:01)
[2017-07-11 15:23] LABS: ALANINE AMINOTRANSFERASE 30 U/L (21-72); ALBUMIN 3.7 g/dL (3.5-5.0); ALKALINE PHOSPHATASE 48 U/L (38-126); ANION GAP 12 (5-19); ASPARTATE AMINO TRANSFERASE 19 U/L (17-59); BILIRUBIN,DIRECT 0.2 mg/dL (0.0-0.4); BILIRUBIN,TOTAL 0.9 mg/dL (0.2-1.3); BLOOD UREA NITROGEN 14 mg/dL (7-20); CALCIUM 9.4 mg/dL (8.4-10.2); CARBON DIOXIDE 25 mmol/L (22-30); CHLORIDE 111 mmol/L (98-107); CREATINE KINASE 139 U/L (55-170); GLUCOSE 99 mg/dL (75-110); POTASSIUM 4.5 mmol/L (3.6-5.0); SODIUM 148.2 mmol/L (137-145); TOTAL PROTEIN 5.8 g/dL (6.3-8.2)
[2017-07-11 15:34] LABS: CREATINE KINASE MB 0.78 ng/mL (<4.55)
[2017-07-11 15:35] LABS: TROPONIN I < 0.012 ng/mL
--- NOTE | 2017-07-11 16:15 | RADIOLOGY REPORT (SQ) ---
EXAM DESCRIPTION: CHEST 2 VIEWS COMPLETED DATE/TIME: 07/11/2017 4:04 pm REASON FOR STUDY: bradycardia, hx bypass, hypotension, per effusion COMPARISON: None. EXAM PARAMETERS: NUMBER OF VIEWS: two views TECHNIQUE: Digital Frontal and Lateral radiographic views of the chest acquired. RADIATION DOSE: NA LIMITATIONS: none FINDINGS: LUNGS AND PLEURA: No opacities, masses or pneumothorax. No pleural effusion. MEDIASTINUM AND HILAR STRUCTURES: No masses or contour abnormalities. HEART AND VASCULAR STRUCTURES: Heart normal size. No evidence for failure. BONES: No acute findings. HARDWARE: Patient is status post median sternotomy. Overlying monitoring devices are identified. OTHER: No other significant finding. IMPRESSION: NO ACUTE RADIOGRAPHIC FINDING IN THE CHEST. TECHNICAL DOCUMENTATION: JOB ID: [id number] [employer]- All Rights Reserved Reading location - IP/workstation name: [email or web address]
[2017-07-11 17:45] LABS: APPEARANCE,URINE CLEAR; BILIRUBIN,URINE NEGATIVE (NEGATIVE); COLOR,URINE YELLOW; GLUCOSE, URINE NEGATIVE (NEGATIVE); KETONES,URINE NEGATIVE (NEGATIVE); LEUKOCYTE ESTERASE,URINE NEGATIVE (NEGATIVE); NITRITE,URINE NEGATIVE (NEGATIVE); PROTEIN,URINE NEGATIVE (NEGATIVE); URINE SPECIFIC GRAVITY 1.017; UROBILINOGEN,URINE NEGATIVE mg/dL (<2.0)
[2017-07-11 21:15] VITALS: BP 89/60
--- NOTE | 2017-07-11 22:24 | EKG REPORT ---
SEVERITY:- NORMAL ECG - SINUS RHYTHM : Confirmed by: Desi Xavier 11-Jul-2017 22:24:11
== END 2017-07-11 22:10 | disposition short-term general hospital (02) ==
LOC: ER 14:49
DX: I95.9 Hypotension, unspecified (principal); R00.1 Bradycardia, unspecified; R53.1 Weakness; I25.2 Old myocardial infarction; Z95.1 Presence of aortocoronary bypass graft; Z79.899 Other long term (current) drug therapy; Z88.6 Allergy status to analgesic agent
CPT/HCPCS: 93005; 99291; 96360; 36415; 82553; 82550; 85025; 80053; 81001; 84484; 71046; 93010; J7030

== ENCOUNTER 2017-08-22 11:11 | Emergency (ER) | payer MEDICARE, MEDICAID ==
[2017-08-22] MEDS ORDERED: NORMAL SALINE 1000 ML 1,000 ML IV ONE (11:58)
[2017-08-22] MEDS ORDERED: MORPHINE SULFATE 10 MG/ML INJ IV ONE (11:58)
[2017-08-22] MEDS ORDERED: ONDANSETRON HCL INJ/PF 4 MG/2 ML SDV IV ONE (11:58)
--- NOTE | 2017-08-22 12:02 | ER Document Report ---
ED Medical Screen (RME) - General Chief Complaint: Abdominal Pain Stated Complaint: STOMACH PAIN Time Seen by Provider: 08/22/17 11:45 TRAVEL OUTSIDE OF THE [place] IN LAST 30 DAYS: No - HPI Notes: 08/22/17 12:01 Painful umbilical hernia out since last night unable to reduce in rme - Related Data Allergies/Adverse Reactions: gabapentin [From Neurontin] Allergy (Verified 08/22/17 11:14) Past Medical History - Social History Chew tobacco use (# tins/day): No Frequency of alcohol use: None Drug Abuse: None - Past Medical History Cardiac Medical History: Reports: Hx Heart Attack, Hx Hypercholesterolemia, Hx Heart Murmur Pulmonary Medical History: Reports: Hx Pneumonia Denies: Hx Tuberculosis Neurological Medical History: Denies: Hx Seizures Renal/ Medical History: Reports: Hx Kidney Stones - mar 2010. Denies: Hx Benign Prostatic Hyperplasia, Hx End Stage Renal Disease, Hx Peritoneal Dialysis Malignancy Medical History: Denies Hx Leukemia GI Medical History: Reports: Hx Gastritis, Hx Gastroesophageal Reflux Disease, Hx Hiatal Hernia. Denies: Hx Crohn's Disease, Hx Irritable Bowel, Hx Liver Failure, Hx Pancreatitis, Hx Ulcer Musculoskeltal Medical History: Reports Hx Arthritis - back, Denies Hx Fibromyalgia, Denies Hx Muscular Dystrophy, Reports Hx Musculoskeletal Deformity , Reports Hx Musculoskeletal Trauma Psychiatric Medical History: Reports: Hx Attention Deficit Hyperactivity Disorder, Hx Bipolar Disorder, Hx Depression, Hx Post Traumatic Stress Disorder Denies: Hx Schizophrenia Traumatic Medical History: Reports: Hx Fractures - hand, left foot Infectious Medical History: Denies: Hx HIV Past Surgical History: Reports: Hx Open Heart Surgery - 01/2017. Denies: Hx Colostomy, Hx Pacemaker - Immunizations Immunizations up to date: Yes Hx Diphtheria, Pertussis, Tetanus Vaccination: Yes Review of Systems - Review of Systems Gastrointestinal: Abdominal pain Physical Exam - Vital signs Vitals: Temp Pulse Resp BP Pulse Ox 98.1 F 70 18 104/80 98 08/22/17 11:48 08/22/17 11:48 08/22/17 11:48 08/22/17 11:48 08/22/17 11:48 - Abdominal Notes: Umbilical hernia that is red and tender to palpation Course - Re-evaluation Re-evalutation: 08/22/17 12:02 Will patient patient first available bed basic lab work and studies have been ordered - Vital Signs Vital signs: Temp Pulse Resp BP Pulse Ox 98.1 F 70 18 104/80 98 08/22/17 11:48 08/22/17 11:48 08/22/17 11:48 08/22/17 11:48 08/22/17 11:48 Doctor's Discharge - Discharge Referrals: REY HERNANDEZ MD [Primary Care Provider] - Follow up as needed
[2017-08-22] MEDS ORDERED: FENTANYL CITRATE INJ/PF 100 MCG/2 ML AMPUL IV ONE (12:27)
[2017-08-22] MEDS ORDERED: ONDANSETRON 4 MG TAB.RAPDIS PO ONE (12:28)
[2017-08-22 12:33] LABS: ABSOLUTE BASOPHILS # (AUTO) 0.1 10^3/uL (0.0-0.2); ABSOLUTE EOSINOPHILS # (AUTO) 0.2 10^3/uL (0.0-0.6); ABSOLUTE LYMPHOCYTES (AUTO) 3.1 10^3/uL (0.5-4.7); ABSOLUTE MONOCYTES (AUTO) 0.9 10^3/uL (0.1-1.4); ABSOLUTE NEUT (AUTO) 7.1 10^3/uL (1.7-8.2); BASOPHILS % (AUTO) 0.5 % (0-2); EOSINOPHILS % (AUTO) 1.7 % (0-6); HEMATOCRIT 41.1 % (37.9-51.0); HEMOGLOBIN 13.8 g/dL (13.5-17.0); LYMPHOCYTES % (AUTO) 27.4 % (13-45); MEAN CORPUSCULAR HEMOGLOBIN 26.4 pg (27.0-33.4); MEAN CORPUSCULAR HGB CONC 33.5 g/dL (32.0-36.0); MEAN CORPUSCULAR VOLUME 79 fl (80-97); MONOCYTES % (AUTO) 7.6 % (3-13); PLATELET COUNT 248 10^3/uL (150-450); RED BLOOD COUNT 5.21 10^6/uL (4.35-5.55); RED CELL DISTRIBUTION WIDTH 14.8 % (11.5-14.0); SEGMENTED NEUTROPHILS % (AUTO) 62.8 % (42-78); TOTAL CELLS COUNTED % (AUTO) 100 %; WHITE BLOOD COUNT 11.3 10^3/uL (4.0-10.5)
--- NOTE | 2017-08-22 12:49 | ER Document Report ---
ED GI/ - General Chief Complaint: Abdominal Pain Stated Complaint: STOMACH PAIN Time Seen by Provider: 08/22/17 11:45 Notes: The patient is a 41-year-old male, past medical history umbilical hernia for 8 years, [place] with CABG, familial hypertriglyceridemia, presents with 1 day of worsening pain at his umbilical hernia site. He is unable to reduce the hernia today and it is red. He has followed up with the surgeon before, but then had a heart attack and was unable to have the elective umbilical hernia repair surgery. Denies constipation, diarrhea, fevers, urinary symptoms, nausea or vomiting. TRAVEL OUTSIDE OF THE [place] IN LAST 30 DAYS: No - Related Data Allergies/Adverse Reactions: gabapentin [From Neurontin] Allergy (Verified 08/22/17 11:14) Past Medical History - General Information source: Patient - Social History Smoking Status: Current Every Day Smoker Chew tobacco use (# tins/day): No Frequency of alcohol use: None Drug Abuse: None Family History: Reviewed & Not Pertinent Patient has suicidal ideation: No Patient has homicidal ideation: No - Past Medical History Cardiac Medical History: Reports: Hx Heart Attack, Hx Hypercholesterolemia, Hx Heart Murmur Pulmonary Medical History: Reports: Hx Pneumonia Denies: Hx Tuberculosis Neurological Medical History: Denies: Hx Seizures Renal/ Medical History: Reports: Hx Kidney Stones - mar 2010. Denies: Hx Benign Prostatic Hyperplasia, Hx End Stage Renal Disease, Hx Peritoneal Dialysis Malignancy Medical History: Denies Hx Leukemia GI Medical History: Reports: Hx Gastritis, Hx Gastroesophageal Reflux Disease, Hx Hiatal Hernia. Denies: Hx Crohn's Disease, Hx Irritable Bowel, Hx Liver Failure, Hx Pancreatitis, Hx Ulcer Musculoskeltal Medical History: Reports Hx Arthritis - back, Denies Hx Fibromyalgia, Denies Hx Muscular Dystrophy, Reports Hx Musculoskeletal Deformity , Reports Hx Musculoskeletal Trauma Psychiatric Medical History: Reports: Hx Attention Deficit Hyperactivity Disorder, Hx Bipolar Disorder, Hx Depression, Hx Post Traumatic Stress Disorder Denies: Hx Schizophrenia Traumatic Medical History: Reports: Hx Fractures - hand, left foot Infectious Medical History: Denies: Hx HIV Past Surgical History: Reports: Hx Open Heart Surgery - 01/2017. Denies: Hx Colostomy, Hx Pacemaker - Immunizations Immunizations up to date: Yes Hx Diphtheria, Pertussis, Tetanus Vaccination: Yes Review of Systems - Review of Systems Notes: REVIEW OF SYSTEMS: CONSTITUTIONAL: -fevers, -chills EENT: -eye pain, -difficulty swallowing, -nasal congestion CARDIOVASCULAR: -chest pain, -syncope. RESPIRATORY: -cough, -SOB GASTROINTESTINAL: +painful umbilical hernia, -nausea, -vomiting, -diarrhea GENITOURINARY: -dysuria, -hematuria MUSCULOSKELETAL: -back pain, -neck pain SKIN: -rash or skin lesions. HEMATOLOGIC: -easy bruising or bleeding. LYMPHATIC: -swollen, enlarged glands. NEUROLOGICAL: -altered mental status or loss of consciousness, -headache, - neurologic symptoms PSYCHIATRIC: -anxiety, -depression. ALL OTHER SYSTEMS REVIEWED AND NEGATIVE. Physical Exam - Vital signs Vitals: Temp Pulse Resp BP Pulse Ox 98.1 F 70 18 104/80 98 08/22/17 11:48 08/22/17 11:48 08/22/17 11:48 08/22/17 11:48 08/22/17 11:48 - Notes Notes: PHYSICAL EXAMINATION: GENERAL: Well-appearing, well-nourished and in no acute distress. HEAD: Atraumatic, normocephalic. EYES: Pupils equal round and reactive to light, extraocular movements intact, sclera anicteric, conjunctiva are normal. ENT: nares patent, oropharynx clear without exudates. Moist mucous membranes. NECK: Normal range of motion, supple without lymphadenopathy LUNGS: Breath sounds clear to auscultation bilaterally and equal. No wheezes rales or rhonchi. HEART: Regular rate and rhythm without murmurs ABDOMEN: Soft, tenderness over umbilical hernia with surrounding erythema, normoactive bowel sounds. No guarding, no rebound. No masses appreciated. EXTREMITIES: Normal range of motion, no pitting or edema. No cyanosis. NEUROLOGICAL: Cranial nerves grossly intact. Normal speech, normal gait. Normal sensory and motor exams. PSYCH: Normal mood, normal affect. SKIN: Warm, Dry, normal turgor, no rashes or lesions noted. Course - Re-evaluation Re-evalutation: After ice pack and pain control, the patient's umbilical hernia was successfully reduced using pressure. He feels much better and is having no abdominal pain. Lactate is normal and he has no signs of ischemic bowel. Placed him in the abdominal binder and told him that he must follow-up with the surgeon for definitive treatment. Given very strict return precautions and he understands. - Vital Signs Vital signs: Temp Pulse Resp BP Pulse Ox 97.8 F 64 16 116/79 98 08/22/17 13:48 08/22/17 13:48 08/22/17 13:48 08/22/17 13:48 08/22/17 13:48 - Laboratory Result Diagrams: 08/22/17 12:11 08/22/17 12:11 Laboratory results interpreted by me: 08/22/17 12:11 WBC 11.3 H MCV 79 L MCH 26.4 L RDW 14.8 H Discharge - Discharge Clinical Impression: Umbilical hernia with obstruction but no gangrene Condition: Stable Disposition: HOME, SELF-CARE Additional Instructions: Keep abdominal binder in place and you must follow-up with the surgeon for definitive repair of this hernia. Return to the ER if you notice any worsening pain or you are unable to reduce the hernia. Hernia You have a hernia. A hernia forms at a weak spot in the abdominal wall. Bowel slips out of the abdominal cavity into the weak spot. Hernias tend to occur in the groin (especially in males), the fold of the thigh, the naval, or at a surgical scar. Surgical repair of the defect is usually necessary. The problem tends to get worse. It's important that you follow up as recommended. For now, you should avoid straining, heavy lifting, and vigorous exercise. Complications occur if the hernia becomes tightly stuck. You should come back immediately if the area becomes increasingly painful, swollen, or discolored, or if you develop abdominal pain and vomiting. Referrals: REY HERNANDEZ MD [Primary Care Provider] - Follow up as needed SUKHDEEP HOOVER MD [ACTIVE STAFF] - Follow up tomorrow
[2017-08-22 12:55] LABS: ANION GAP 14 (5-19); BLOOD UREA NITROGEN 14 mg/dL (7-20); CALCIUM 9.8 mg/dL (8.4-10.2); CARBON DIOXIDE 25 mmol/L (22-30); CHLORIDE 106 mmol/L (98-107); GLUCOSE 92 mg/dL (75-110); POTASSIUM 4.2 mmol/L (3.6-5.0); SODIUM 144.5 mmol/L (137-145)
[2017-08-22 13:49] VITALS: BP 116/79
== END 2017-08-22 13:49 | disposition home or self-care (01) ==
LOC: ER 11:11
DX: K42.0 Umbilical hernia with obstruction, without gangrene (principal); R10.9 Unspecified abdominal pain; E78.00 Pure hypercholesterolemia, unspecified; Z87.442 Personal history of urinary calculi; I25.2 Old myocardial infarction; Z95.1 Presence of aortocoronary bypass graft
CPT/HCPCS: 99283; 96361; 96374; 36415; 83605; 85025; 80048; A9270; J3010; J7030; S0119

== ENCOUNTER 2017-09-16 22:07 | Emergency (ER) | payer MEDICARE, MEDICAID ==
[2017-09-16] MEDS ORDERED: ASPIRIN 81 MG TABLET, CHEWABLE PO ONE (22:31)
--- NOTE | 2017-09-16 22:34 | ER Document Report ---
ED General - General Chief Complaint: Chest Pain Stated Complaint: CHEST PAIN Time Seen by Provider: 09/16/17 22:26 TRAVEL OUTSIDE OF THE [place] IN LAST 30 DAYS: No - HPI Notes: Patient is a 41-year-old male with a history of pericardial effusion, pneumothorax, double bypass, hypercholesterolemia who presents to the ED complaining of midsternal chest tightness x3 hours. He does not have any sharp pain and it is not worse with breathing. Patient states that his symptoms do not radiate and he is ambulatory without any dyspnea on exertion. Patient states the symptoms do not worsen when he is lying down versus standing up. Patient's CT was January 2017. Patient states that he had a pericardial effusion a few months after. Patient states that he is eating and drinking without any difficulties. He is urinating normally and having normal bowel movements. He has not had any dizziness or diaphoresis. Patient states that he does not believe he is on any blood thinners, and takes 81 mg of aspirin daily. Denies any headache, fever, neck pain, URI, sore throat, palpitations, syncope, cough, shortness of breath, wheeze, dyspnea, abdominal pain, nausea/ vomiting/diarrhea, urinary retention, dysuria, hematuria, back pain, loss of control of bowel or bladder, numbness/tingling, muscle paralysis/weakness, or rash. - Related Data Allergies/Adverse Reactions: gabapentin [From Neurontin] Allergy (Verified 08/22/17 11:14) Past Medical History - Social History Smoking Status: Unknown if Ever Smoked Family History: Reviewed & Not Pertinent - Past Medical History Cardiac Medical History: Reports: Hx Heart Attack, Hx Hypercholesterolemia, Hx Heart Murmur Pulmonary Medical History: Reports: Hx Pneumonia Denies: Hx Tuberculosis Neurological Medical History: Denies: Hx Seizures Renal/ Medical History: Reports: Hx Kidney Stones - mar 2010. Denies: Hx Benign Prostatic Hyperplasia, Hx End Stage Renal Disease, Hx Peritoneal Dialysis Malignancy Medical History: Denies Hx Leukemia GI Medical History: Reports: Hx Gastritis, Hx Gastroesophageal Reflux Disease, Hx Hiatal Hernia. Denies: Hx Crohn's Disease, Hx Irritable Bowel, Hx Liver Failure, Hx Pancreatitis, Hx Ulcer Musculoskeltal Medical History: Reports Hx Arthritis - back, Denies Hx Fibromyalgia, Denies Hx Muscular Dystrophy, Reports Hx Musculoskeletal Deformity , Reports Hx Musculoskeletal Trauma Psychiatric Medical History: Reports: Hx Attention Deficit Hyperactivity Disorder, Hx Bipolar Disorder, Hx Depression, Hx Post Traumatic Stress Disorder Denies: Hx Schizophrenia Traumatic Medical History: Reports: Hx Fractures - hand, left foot Infectious Medical History: Denies: Hx HIV Past Surgical History: Reports: Hx Open Heart Surgery - 01/2017. Denies: Hx Colostomy, Hx Pacemaker - Immunizations Immunizations up to date: Yes Hx Diphtheria, Pertussis, Tetanus Vaccination: Yes Review of Systems - Review of Systems -: Yes All other systems reviewed and negative Physical Exam - Vital signs Vitals: Temp Pulse Resp BP Pulse Ox 98.7 F 81 16 116/76 97 09/16/17 22:15 09/16/17 22:15 09/16/17 22:15 09/16/17 22:15 09/16/17 22:15 - Notes Notes: PHYSICAL EXAMINATION: GENERAL: Well-appearing, well-nourished and in no acute distress. HEAD: Atraumatic, normocephalic. EYES: Pupils equal round and reactive to light, extraocular movements intact, sclera anicteric, conjunctiva are normal. ENT: Nares patent and without discharge. oropharynx clear without exudates. No tonsilar hypertrophy or erythema. Moist mucous membranes. NECK: Normal range of motion, supple without lymphadenopathy LUNGS: Breath sounds clear to auscultation bilaterally and equal. No wheezes rales or rhonchi. HEART: Regular rate and rhythm without murmurs, rubs, gallops. ABDOMEN: Soft, nontender, nondistended abdomen. No guarding, no rebound. No masses appreciated. Normal bowel sounds present. Musculoskeletal: FROM to passive/active. Strength 5+/5. Extremities: No cyanosis, clubbing, or edema b/l. Peripheral pulses 2+. Capillary refill less than 3 seconds. NEUROLOGICAL: Normal speech, normal gait. PSYCH: Normal mood, normal affect. SKIN: Warm, Dry, normal turgor, no rashes or lesions noted. Course - Re-evaluation Re-evalutation: 09/17/17 00:20 Recheck on patient. Pt asymptomatic and no longer has any pain and is feeling 'great.' 2nd trop will be obtained 3hrs after initial. Pt in agreement with plan. 09/17/17 02:50 Patient is an afebrile, well-hydrated 41-year-old male who presents to the ED with chest pain, unspecified. Vitals are acceptable without any significant tachycardia, tachypnea, or hypoxia. PE is otherwise unremarkable. Patient is nontoxic-appearing and is tolerating p.o. without any difficulties. Pt is currently asymptomatic. CBC, CMP, EKG/cardiac enzymes 2, chest x-ray are all unremarkable for any acute pathology. Patient has a heart score of 2, Wells score of 0, and is PERC negative. Patient does not have any chest pain, dyspnea , or shortness of breath. Patient's presentation and symptomatology creates low suspicion for ACS, PE, pneumothorax, pericarditis, dissection, respiratory compromise, severe dehydration, sepsis, meningitis, acute intracranial pathology , or other systemic emergent condition at this time. Patient is aware that his condition can change from initial presentation and he needs to monitor symptoms closely and seek medical attention for any acute changes. Pt is feeling better and would like to go home. Recommend conservative measures for symptoms. Recheck with your PCM in 2-3 days. Consider consult with Cardiology. Return to the ED with any worsening/concerning symptoms otherwise as reviewed in discharge. Patient is in agreement. - Vital Signs Vital signs: Temp Pulse Resp BP Pulse Ox 98.7 F 81 13 116/76 98 09/16/17 22:15 09/16/17 22:15 09/16/17 22:31 09/16/17 22:15 09/16/17 22:45 - Laboratory Result Diagrams: 09/16/17 22:35 09/16/17 22:35 Laboratory results interpreted by me: 09/16/17 22:35 WBC 10.9 H MCV 78 L MCH 26.4 L RDW 14.1 H Discharge - Discharge Clinical Impression: Chest pain, unspecified Qualifiers: Chest pain type: unspecified Qualified Code(s): R07.9 - Chest pain, unspecified Condition: Stable Disposition: HOME, SELF-CARE Instructions: Chest Pain of Unclear Cause ([facility]) Additional Instructions: Maintain adequate fluid and food intake Take home medications as directed Low sodium/fat diet Monitor blood pressure daily and keep a log Monitor symptoms for any acute changes Recheck with your PCM in 2-3 days Consider a follow-up with cardiology Return to the ED with any worsening symptoms and/or development of fever, headache, chest pain, palpitations, syncope, shortness of breath, trouble breathing, abdominal pain, n/v/d, blood in stool/urine, loss of control of bowel /bladder, urinary retention, muscle weakness/paralysis, numbness/tingling, or other worsening symptoms that are concerning to you. Referrals: REY HERNANDEZ MD [Primary Care Provider] - 09/18/17
[2017-09-16 23:06] LABS: ABSOLUTE BASOPHILS # (AUTO) 0.1 10^3/uL (0.0-0.2); ABSOLUTE EOSINOPHILS # (AUTO) 0.3 10^3/uL (0.0-0.6); ABSOLUTE LYMPHOCYTES (AUTO) 3.9 10^3/uL (0.5-4.7); ABSOLUTE MONOCYTES (AUTO) 0.8 10^3/uL (0.1-1.4); ABSOLUTE NEUT (AUTO) 5.9 10^3/uL (1.7-8.2); BASOPHILS % (AUTO) 0.6 % (0-2); EOSINOPHILS % (AUTO) 2.3 % (0-6); HEMATOCRIT 41.4 % (37.9-51.0); LYMPHOCYTES % (AUTO) 35.6 % (13-45); MEAN CORPUSCULAR HEMOGLOBIN 26.4 pg (27.0-33.4); MEAN CORPUSCULAR HGB CONC 33.8 g/dL (32.0-36.0); MEAN CORPUSCULAR VOLUME 78 fl (80-97); MONOCYTES % (AUTO) 7.2 % (3-13); PLATELET COUNT 258 10^3/uL (150-450); RED BLOOD COUNT 5.31 10^6/uL (4.35-5.55); RED CELL DISTRIBUTION WIDTH 14.1 % (11.5-14.0); SEGMENTED NEUTROPHILS % (AUTO) 54.3 % (42-78); TOTAL CELLS COUNTED % (AUTO) 100 %; WHITE BLOOD COUNT 10.9 10^3/uL (4.0-10.5)
--- NOTE | 2017-09-16 23:08 | RADIOLOGY REPORT (SQ) ---
CXR- 1 VIEW Clinical history: 41-year-old male with chest pain. Comparison: 20 June 2017 Technique: 1 view of the chest submitted for review. Findings: The lungs are hyper expanded without evidence of infiltrate and/or effusion. Mediastinal wires are aligned and intact. The cardiac silhouette measures within normal. Pulmonary vascularity is unremarkable. Osseous structures are within normal limits for age. Impression: No plain film evidence for acute cardiopulmonary disease.
[2017-09-16 23:12] LABS: ALANINE AMINOTRANSFERASE 30 U/L (21-72); ALBUMIN 4.4 g/dL (3.5-5.0); ALKALINE PHOSPHATASE 52 U/L (38-126); ANION GAP 11 (5-19); ASPARTATE AMINO TRANSFERASE 21 U/L (17-59); BILIRUBIN,DIRECT 0.2 mg/dL (0.0-0.4); BILIRUBIN,TOTAL 1.1 mg/dL (0.2-1.3); BLOOD UREA NITROGEN 17 mg/dL (7-20); CALCIUM 9.4 mg/dL (8.4-10.2); CARBON DIOXIDE 26 mmol/L (22-30); CHLORIDE 105 mmol/L (98-107); GLUCOSE 93 mg/dL (75-110); POTASSIUM 4.6 mmol/L (3.6-5.0); SODIUM 142.3 mmol/L (137-145); TOTAL PROTEIN 6.6 g/dL (6.3-8.2)
[2017-09-17 02:57] VITALS: BP 106/79
--- NOTE | 2017-09-17 07:47 | EKG REPORT ---
SEVERITY:- NORMAL ECG - SINUS RHYTHM : Confirmed by: Mann Irizarry MD 17-Sep-2017 07:47:06
== END 2017-09-17 03:07 | disposition home or self-care (01) ==
LOC: ER 22:07
DX: R07.9 Chest pain, unspecified (principal); I25.2 Old myocardial infarction; E78.00 Pure hypercholesterolemia, unspecified; I31.3 Pericardial effusion (noninflammatory); Z95.1 Presence of aortocoronary bypass graft
CPT/HCPCS: 93005; 99285; 36415; 85025; 80053; 84484; 71045; 93010; A9270

== ENCOUNTER → 2017-10-14 | Outpatient (CLI) | payer MEDICARE, MEDICAID ==
--- NOTE | 2017-10-14 17:57 | RADIOLOGY REPORT (SQ) ---
EXAM DESCRIPTION: MRI HEAD COMBO COMPLETED DATE/TIME: 10/14/2017 3:11 pm REASON FOR STUDY: ANTEROGRADE AMNESIA R41.1 R41.1 ANTEROGRADE AMNESIA COMPARISON: MRI brain 04/09/2014 TECHNIQUE: Multiplanar imaging includes noncontrasted T1, T2, FLAIR, diffusion with ADC map and post gadolinium contrast T1 sequences. Images stored on PACS. CONTRAST TYPE AND DOSE: 15 mL Prohance. RENAL FUNCTION: GFR > 60. LIMITATIONS: None. FINDINGS: ANATOMY: No developmental anomalies. Normal vascular flow voids. Pituitary fossa normal. CSF SPACES: Normal in size and contour. No hemorrhage. CEREBRUM: Sulci and gyri normal in size and contour. Normal white matter signal on FLAIR imaging. No evidence of hemorrhage, mass, or extraaxial fluid collection. No abnormal enhancement post contrast. POSTERIOR FOSSA: No signal alteration. No hemorrhage. No edema, masses, or mass effect. Internal nathaniel tory canals, cerebellopontine angles, mastoids normal. No enhancing lesions. No abnormal enhancement post contrast. DIFFUSION IMAGING: Negative for acute or subacute infarction. ORBITS: No masses. Globes normal. PARANASAL SINUSES: No fluid levels. Mucosa normal. OTHER: No other significant finding. IMPRESSION: NORMAL MRI OF THE BRAIN WITHOUT AND WITH INTRAVENOUS GADOLINIUM CONTRAST. EVIDENCE OF ACUTE STROKE: NO. TECHNICAL DOCUMENTATION: JOB ID: [id number] [employer]- All Rights Reserved Reading location - IP/workstation name: [email or web address]
== END ==
LOC: RAD 14:00
PROVIDERS: ATTEND Internal Medicine
DX: R41.3 Other amnesia (principal)
CPT/HCPCS: 70553; A9576

== ENCOUNTER 2017-10-31 08:22 | Day surgery (SDC) | payer MEDICARE, MEDICAID ==
[~2017-10-31 08:22] MED LIST: BUPIVACAINE HCL 0.5 % INJ/PF 30 ML SDV ONE; CEFAZOLIN 2 GM/D5W RTU 2 GM/50 ML RTUPB IV PRN; LACTATED RINGERS 1000 ML IV PRN
[2017-10-31] MEDS ORDERED: KETOROLAC TROMETHAMINE 60 MG/2 ML SDV ONE (09:14)
[2017-10-31] MEDS ORDERED: DEXAMETHASONE SOD PHOSPHATE INJ 4 MG/1 ML VIAL ONE (09:14)
[2017-10-31] MEDS ORDERED: ONDANSETRON HCL INJ/PF 4 MG/2 ML SDV ONE ×2 (09:14→10:22)
[2017-10-31] MEDS ORDERED: ROCURONIUM BROMIDE INJ 50 MG/5 ML VIAL IV ONE (09:14)
[2017-10-31] MEDS ORDERED: NEOSTIGMINE METHYLSULFATE 10 MG/10 ML VIAL ONE (09:14)
[2017-10-31] MEDS ORDERED: LIDOCAINE 2% INJ-PF (20 MG/ML) 2 ML AMPUL ONE (09:14)
[2017-10-31] MEDS ORDERED: SUCCINYLCHOLINE CHLORIDE INJ 200 MG/10 ML VIAL ONE (09:14)
[2017-10-31] MEDS ORDERED: GLYCOPYRROLATE 1 MG/5 ML SYRINGE ONE (09:14)
[2017-10-31] MEDS ORDERED: MIDAZOLAM 2 MG/2 ML INJ ONE ×2 (10:14→13:08)
[2017-10-31] MEDS ORDERED: FENTANYL CITRATE INJ/PF 100 MCG/2 ML AMPUL ONE ×3 (10:14→13:07)
[2017-10-31] MEDS ORDERED: FENTANYL CITRATE INJ/PF 250 MCG/5 ML AMPULE ONE (10:14)
[2017-10-31] MEDS ORDERED: PROPOFOL INJ 200 MG/20 ML VIAL IV ONE (10:15)
[2017-10-31] MEDS ORDERED: DEXMEDETOMIDINE INJ 80 MCG/20 ML VIAL IV ONE (10:15)
[2017-10-31] MEDS ORDERED: ACETAMINOPHEN 1,000 MG/100 ML RTUPB IV ONE (10:15)
[2017-10-31] MEDS ORDERED: SCOPOLAMINE HYDROBROMIDE 1.5 MG PATCH.TD72 ONE (10:23)
[2017-10-31] MEDS ORDERED: MEPERIDINE HCL/PF INJ 25 MG/1 ML DISP.SYRIN IV PRN (11:25)
[2017-10-31] MEDS ORDERED: DIPHENHYDRAMINE HCL 50 MG/ML VIAL IV PRN (11:25)
[2017-10-31] MEDS ORDERED: FENTANYL CITRATE INJ/PF 100 MCG/2 ML AMPUL IV PRN ×2 (11:25)
[2017-10-31] MEDS ORDERED: PROMETHAZINE HCL INJ 25 MG/1 ML VIAL IV PRN ×2 (11:25)
[2017-10-31] MEDS: FENTANYL CITRATE INJ/PF 100 MCG/2 ML AMPUL IV PRN ×2 (12:40→12:50)
[2017-10-31] MEDS ORDERED: MORPHINE SULFATE 10 MG/ML INJ ONE (13:08)
[2017-10-31] MEDS ORDERED: OXYCODONE HCL IR 5 MG TABLET ONE (14:44)
[2017-10-31] MEDS ORDERED: OXYCODONE HCL IR 5 MG TABLET PO ONE (15:00)
[2017-10-31 15:41] VITALS: BP 109/59
--- NOTE | 2017-11-01 09:41 | Operative Report ---
Nonrecallable Operative Report DATE OF SURGERY: 11/01/17 PREOPERATIVE DIAGNOSIS: Symptomatic umbilical hernia POSTOPERATIVE DIAGNOSIS: Symptomatic umbilical hernia OPERATION: Robot-assisted laparoscopic umbilical hernia repair with mesh SURGEON: RONNI VILLALOBOS 1ST CROWN WHEEL ASSEMBLER: CRYSTAL BAUGH ANESTHESIA: GA TISSUE REMOVED OR ALTERED: None COMPLICATIONS: None apparent ESTIMATED BLOOD LOSS: Minimal PROCEDURE: Drains/implants: [address] Procedure in detail: After informed consent was obtained, the patient was laid in the supine position. The area of the abdomen was prepped and draped in a normal sterile fashion. A left upper quadrant incision was created with a 15 blade scalpel. A 5 mm trocar was inserted into the abdominal cavity using the 5 mm camera and the Optiview technique. Once this was completed, gas insufflation was attached and pneumoperitoneum was achieved. Next a 5 mm left lower quadrant robotic trocar was placed under direct laparoscopic visualization. A 12 mm trocar was placed in the left lateral abdomen in similar fashion. 5 mm trocar was removed and replaced with an 8 mm robotic trocar. The robot was then brought over the patient and docked. I then assumed my position at the surgeon's consult. There is a large amount of preperitoneal fat surrounding the hernia defect. The peritoneal fat was cleared away from the anterior abdominal wall. The defect was measured to be approximately 3 cm in diameter. The hernia defect was then closed using number 1 V lock suture in simple running fashion. Once this was completed, an 11 cm ventra-light ST hernia mesh was chosen to adequately cover the defect. This was placed into the abdominal cavity and apposed to the anterior abdominal wall using the EPS. The mesh was sutured to the anterior abdominal wall using 2-0 V lock suture in simple running fashion. Once this was complete, the abdomen was inspected. The repair appeared to be in good place. The robot was then undocked. The 8 mm trocar sites were closed using 0 Vicryl suture in simple interrupted fashion. The trochars were removed , and pneumoperitoneum was relieved. The 12 mm trocar site fascia was closed using 0 Vicryl suture in [id number] fashion. The overlying skin was closed using 4-0 Vicryl Rapide suture in subcuticular fashion. Dressings were placed, and the procedure was concluded. All sponge, instrument, and needle counts were correct 2. Condition: Stable. Crystal Baugh PA-C was scrubbed and present the entirety of the procedure. She assisted with all portions of the procedure, including placement of the trochars, exchanging of the robotic instruments, docking of the robot, closure of the fascia, and closure of the skin.
--- NOTE | 2017-11-01 09:42 | Discharge Summary ---
Discharge Summary (SDC) - Discharge Final Diagnosis: Symptomatic umbilical hernia Date of Surgery: 10/31/17 Discharge Date: 10/31/17 Forms: ASU Anesthesia D/C Instruction, Discharge POC-Surgical Service Referrals: RONNI VILLALOBOS MD [ACTIVE STAFF] - 11/08/17 8:15 am Discharge Diet: As Tolerated Respiratory Treatments at Home: Deep Breathing/Coughing, Incentive Spirometer Discharge Activity: Balance Activity w/Rest, No Lifting Over 10 Pounds, No Lifting/Push/Pulling Home Care Assistance: None Needed Report the Following to Your Physician Immediately: Nausea, Vomiting, Increase in Pain, Fever over 101 Degrees, Unusual Bleeding, Redness, Swelling, Warmth, Drainage-Foul Smelling, Tingling Sensation, IV Site Infection Signs
== END 2017-10-31 15:45 | disposition home or self-care (01) ==
LOC: OROUT 08:22
PROVIDERS: ATTEND Surgery
DX: K42.9 Umbilical hernia without obstruction or gangrene (principal); F17.210 Nicotine dependence, cigarettes, uncomplicated; F31.30 Bipolar disorder, current episode depressed, mild or moderate severity, unspecified; M54.9 Dorsalgia, unspecified; I25.2 Old myocardial infarction; Z84.89 Family history of other specified conditions; Z79.899 Other long term (current) drug therapy
CPT/HCPCS: 49652; S2900; 36415; 752; 86850; 86900; 86901; C1781; J0131; J0330; J0690; J1100; J1885; J2250; J2270; J2405; J2704; J3010; J3490

== ENCOUNTER 2018-01-15 00:33 | Emergency (ER) | payer MEDICARE, MEDICAID ==
[2018-01-15] MEDS ORDERED: ASPIRIN 81 MG TABLET, CHEWABLE PO ONE (00:54)
[2018-01-15 01:33] LABS: ABSOLUTE EOSINOPHILS # (AUTO) 0.3 10^3/uL (0.0-0.6); ABSOLUTE LYMPHOCYTES (AUTO) 2.5 10^3/uL (0.5-4.7); ABSOLUTE MONOCYTES (AUTO) 0.8 10^3/uL (0.1-1.4); ABSOLUTE NEUT (AUTO) 5.7 10^3/uL (1.7-8.2); BASOPHILS % (AUTO) 0.5 % (0-2); EOSINOPHILS % (AUTO) 3.5 % (0-6); HEMATOCRIT 39.5 % (37.9-51.0); HEMOGLOBIN 13.2 g/dL (13.5-17.0); LYMPHOCYTES % (AUTO) 27.1 % (13-45); MEAN CORPUSCULAR HEMOGLOBIN 26.8 pg (27.0-33.4); MEAN CORPUSCULAR HGB CONC 33.3 g/dL (32.0-36.0); MEAN CORPUSCULAR VOLUME 81 fl (80-97); MONOCYTES % (AUTO) 8.6 % (3-13); PLATELET COUNT 269 10^3/uL (150-450); RED BLOOD COUNT 4.91 10^6/uL (4.35-5.55); RED CELL DISTRIBUTION WIDTH 14.8 % (11.5-14.0); SEGMENTED NEUTROPHILS % (AUTO) 60.3 % (42-78); TOTAL CELLS COUNTED % (AUTO) 100 %; WHITE BLOOD COUNT 9.4 10^3/uL (4.0-10.5)
[2018-01-15 01:49] LABS: ALANINE AMINOTRANSFERASE 25 U/L (21-72); ALKALINE PHOSPHATASE 51 U/L (38-126); ANION GAP 10 (5-19); ASPARTATE AMINO TRANSFERASE 34 U/L (17-59); BILIRUBIN,DIRECT 0.2 mg/dL (0.0-0.4); BILIRUBIN,TOTAL 0.5 mg/dL (0.2-1.3); BLOOD UREA NITROGEN 14 mg/dL (7-20); CALCIUM 9.8 mg/dL (8.4-10.2); CARBON DIOXIDE 32 mmol/L (22-30); CHLORIDE 99 mmol/L (98-107); CREATINE KINASE 270 U/L (55-170); GLUCOSE 90 mg/dL (75-110); POTASSIUM 4.3 mmol/L (3.6-5.0); SODIUM 141.4 mmol/L (137-145); TOTAL PROTEIN 6.2 g/dL (6.3-8.2)
[2018-01-15] MEDS ORDERED: NORMAL SALINE 1000 ML 1,000 ML IV ONE (01:53)
[2018-01-15 02:01] LABS: CREATINE KINASE MB 3.25 ng/mL (<4.55)
[2018-01-15 02:02] LABS: TROPONIN I < 0.012 ng/mL
--- NOTE | 2018-01-15 02:10 | RADIOLOGY REPORT (SQ) ---
EXAM DESCRIPTION: XR CHEST 1 VIEW COMPLETED DATE/TME: 01/15/2018 00:54 CLINICAL HISTORY: 42 years, Male, cp COMPARISON: None. NUMBER OF VIEWS: 1 TECHNIQUE: Frontal view the chest LIMITATIONS: None. FINDINGS: Heart size is normal. Sternotomy wires and mediastinal clips. Calcified granuloma right lung base. Lungs are otherwise clear. No pneumothorax IMPRESSION: No acute cardiopulmonary process 2010 [employer] All Rights Reserved
[2018-01-15] MEDS ORDERED: NITROGLYCERIN 0.4 MG/TAB 25 TAB/BOTTLE SL PRN (02:33)
--- NOTE | 2018-01-15 02:37 | ER Document Report ---
ED Cardiac - General Chief Complaint: Chest Pain Stated Complaint: CHEST PAIN Time Seen by Provider: 01/15/18 00:54 Notes: Patient is a 42-year-old male presenting to the emergency department complaining of chest pain. Patient states he has had chest pain in the center of his chest for the last 2 days. Patient states this evening the pain radiated to his left jaw. Patient states he feels like the pain increases when he relaxes. Patient denies any shortness of breath, nausea, vomiting, diarrhea , fever, URI symptoms. Patient states he took 6 baby aspirin prior to arrival. Patient states he has a chronic back pain and sees pain management for same. Patient states he had a CABG x2 01/2017 and also admits to past cocaine and IV drug abuse. Patient is currently denying chest pain stated when it started radiating to his left jaw that is why he presented to the ER but the pain has since resolved. Past medical history: Chronic back pain, hyperlipidemia Medications: Oxycodone, atorvastatin, aspirin, fenofibrate, Repatha Allergies: Gabapentin Surgical history: CABG x2, umbilical hernia repair Patient admits to everyday cigarette smoking, denies EtOH use, admits to past IV drug use and cocaine abuse. Dr. Hernandez is patient's taste tester. TRAVEL OUTSIDE OF THE [place] IN LAST 30 DAYS: No - Related Data Allergies/Adverse Reactions: gabapentin [From Neurontin] Allergy (Verified 10/31/17 09:10) Swelling Gadolinium-Containing Contrast Medi Allergy (Verified 10/31/17 09:10) Rash, "sore joints", "brain fog" Past Medical History - General Information source: Patient - Social History Smoking Status: Current Every Day Smoker Chew tobacco use (# tins/day): No Frequency of alcohol use: None Drug Abuse: None Lives with: Family Family History: Reviewed & Not Pertinent Patient has suicidal ideation: No Patient has homicidal ideation: No - Past Medical History Cardiac Medical History: Reports: Hx Heart Attack - [place] JANUARY 2017, Hx Hypercholesterolemia, Hx Heart Murmur Denies: Hx Coronary Artery Disease, Hx Hypertension Pulmonary Medical History: Denies: Hx Asthma, Hx Bronchitis, Hx COPD, Hx Pneumonia, Hx Tuberculosis Neurological Medical History: Denies: Hx Cerebrovascular Accident, Hx Seizures Renal/ Medical History: Reports: Hx Kidney Stones - mar 2010. Denies: Hx Benign Prostatic Hyperplasia, Hx End Stage Renal Disease, Hx Peritoneal Dialysis Malignancy Medical History: Denies Hx Leukemia GI Medical History: Reports: Hx Gastritis, Hx Gastroesophageal Reflux Disease, Hx Hiatal Hernia. Denies: Hx Crohn's Disease, Hx Irritable Bowel, Hx Liver Failure, Hx Pancreatitis, Hx Ulcer Musculoskeletal Medical History: Denies Hx Arthritis, Denies Hx Fibromyalgia, Denies Hx Muscular Dystrophy, Reports Hx Musculoskeletal Deformity, Reports Hx Musculoskeletal Trauma Psychiatric Medical History: Reports: Hx Attention Deficit Hyperactivity Disorder, Hx Bipolar Disorder, Hx Depression, Hx Post Traumatic Stress Disorder Denies: Hx Schizophrenia Traumatic Medical History: Reports: Hx Fractures - hand, left foot Infectious Medical History: Denies: Hx HIV Past Surgical History: Reports: Hx Open Heart Surgery - 01/2017. Denies: Hx Colostomy, Hx Pacemaker - Immunizations Immunizations up to date: Yes Hx Diphtheria, Pertussis, Tetanus Vaccination: Yes Review of Systems - Review of Systems Constitutional: See HPI EENT: See HPI Cardiovascular: See HPI Respiratory: See HPI Gastrointestinal: See HPI Genitourinary: No symptoms reported Male Genitourinary: No symptoms reported Musculoskeletal: See HPI Skin: No symptoms reported Hematologic/Lymphatic: No symptoms reported Neurological/Psychological: No symptoms reported Physical Exam - Vital signs Vitals: Temp Resp BP Pulse Ox 98.2 F 10 L 113/64 98 01/15/18 01:35 01/15/18 01:35 01/15/18 01:35 01/15/18 01:35 - Notes Notes: GENERAL: Alert, interacts well. No acute distress. HEAD: Normocephalic, atraumatic. EYES: Pupils equal, round, and reactive to light. Extraocular movements intact. ENT: Oral mucosa moist, tongue midline. NECK: Full range of motion. Supple. Trachea midline. LUNGS: Clear to auscultation bilaterally, no wheezes, rales, or rhonchi. No respiratory distress. HEART: Regular rate and rhythm. No murmur. Well-healed CABG scar anterior chest. No crepitus on palpation of chest or increased pain upon palpation chest. ABDOMEN: Soft, non-tender. Non-distended. Bowel sounds present in all 4 quadrants. EXTREMITIES: Moves all 4 extremities spontaneously. No edema, normal radial and dorsalis pedis pulses bilaterally. No cyanosis. BACK: no cervical, thoracic, lumbar midline tenderness. No saddle anesthesia, normal distal neurovascular exam. NEUROLOGICAL: Alert and oriented x3. Normal speech. cranial nerves II through XII grossly intact PSYCH: Normal affect, normal mood. SKIN: Warm, dry, normal turgor. No rashes or lesions noted. Course - Re-evaluation Re-evalutation: 01/15/18 02:33 Patient initially stated he did not have any chest pain. States chest pain has since resurfaced. Rating it 2 out of 10. Will order Nitro for CP. Nurse states after administration of 1 sublingual nitro patient states pain has since resolved. Patient denies pain in chest or jaw at this time. Awaiting repeat troponin. 01/15/18 05:20 Repeat EKG shows no signs of ST segment changes no T wave inversions. QTC 405 sinus rhythm at a rate of 59. Patient's repeat troponin is also negative. Patient remains chest pain-free and is a heart score of 2 discussed need to follow-up with cardiology in the next 12-24 hours. Close return precautions discussed. - Vital Signs Vital signs: Temp Pulse Resp BP Pulse Ox 98.2 F 9 L 110/78 98 01/15/18 01:35 01/15/18 04:00 01/15/18 04:00 01/15/18 04:00 - Laboratory Result Diagrams: 01/15/18 01:18 01/15/18 01:18 Laboratory results interpreted by me: 01/15/18 01/15/18 01:18 01:18 Hgb 13.2 L MCH 26.8 L RDW 14.8 H Carbon Dioxide 32 H Creatine Kinase 270 H Total Protein 6.2 L Discharge - Discharge Clinical Impression: Chest pain Qualifiers: Chest pain type: other chest pain Qualified Code(s): R07.89 - Other chest pain Condition: Stable Disposition: HOME, SELF-CARE Instructions: Angina Episode ([facility]), Chest Pain of Unclear Cause ([facility]), Nitrates ([facility]) Additional Instructions: As we have discussed your lab results show no signs of injury to your heart. You still need to follow-up with your taste tester in the next 12-24 hours. Please return to the emergency room should your chest pain return you have shortness of breath, dizziness, lightheadedness or any other concerning symptoms. Referrals: REY HERNANDEZ MD [Primary Care Provider] - Follow up as needed
[2018-01-15 05:44] VITALS: BP 105/75
--- NOTE | 2018-01-15 07:00 | EKG REPORT ---
SEVERITY:- NORMAL ECG - SINUS RHYTHM : Confirmed by: Mann Irizarry MD 15-Jan-2018 06:59:41
--- NOTE | 2018-01-15 07:01 | EKG REPORT ---
SEVERITY:- BORDERLINE ECG - SINUS RHYTHM BORDERLINE T ABNORMALITIES, ANT-LAT LEADS, NEW SINCE 09/16/17 EKG : Confirmed by: Mann Irizarry MD 15-Jan-2018 07:00:36
== END 2018-01-15 05:44 | disposition home or self-care (01) ==
LOC: ER 00:33
DX: R07.89 Other chest pain (principal); R68.84 Jaw pain; M54.9 Dorsalgia, unspecified; G89.29 Other chronic pain; F17.210 Nicotine dependence, cigarettes, uncomplicated
CPT/HCPCS: 93005; 99285; 96360; 96361; 36415; 82553; 82550; 85025; 80053; 84484; 71045; 93010; J7030

== ENCOUNTER 2018-01-16 21:36 | Observation (INO) | payer MEDICARE, MEDICAID ==
[2018-01-16] MEDS ORDERED: ASPIRIN 81 MG TABLET, CHEWABLE PO ONE (21:46)
--- NOTE | 2018-01-16 22:07 | ER Document Report ---
ED Medical Screen (RME) - General Chief Complaint: Chest Pain Stated Complaint: CHEST PAIN Time Seen by Provider: 01/16/18 22:06 Mode of Arrival: Ambulatory Information source: Patient Notes: 42-year-old male presents to ED for complaint of chest pain. He states he was seen here last night for the same pain. He states that he is concerned because he is bruising and he is taken high doses of blood thinners and taken aspirin. He states he was diagnosed recently with inflammation and fluid around his heart and he is concerned and wanted an MRI tonight. He states last time he had this he did get an MRI at nighttime. He states when the pain gets real bad it feels like it is in his chest. He denies any shortness of breath nausea vomiting diarrhea fever upper respiratory infection symptoms. He states he did take 1 baby aspirin this morning as he is supposed to. He states he has had a CABG x2 in 2017. He has an extensive medical history and continues to smoke. His lungs are clear respirations are regular and unlabored walks with a even steady gait. I have greeted and performed a rapid initial assessment of this patient. A comprehensive ED assessment and evaluation of the patient, analysis of test results and completion of medical decision making process will be conducted by an additional ED providers. TRAVEL OUTSIDE OF THE [place] IN LAST 30 DAYS: No - Related Data Allergies/Adverse Reactions: gabapentin [From Neurontin] Allergy (Verified 10/31/17 09:10) Swelling Gadolinium-Containing Contrast Medi Allergy (Verified 10/31/17 09:10) Rash, "sore joints", "brain fog" Past Medical History - Past Medical History Cardiac Medical History: Reports: Hx Heart Attack - [place] JANUARY 2017, Hx Hypercholesterolemia, Hx Heart Murmur, Other - He states he has a history of katia-cardial fluid and inflammation Pulmonary Medical History: Reports: None EENT Medical History: Reports: None Neurological Medical History: Reports: None Endocrine Medical History: Reports: None Renal/ Medical History: Reports: Hx Kidney Stones - mar 2010 Malignancy Medical History: Reports None GI Medical History: Reports: Hx Gastritis, Hx Gastroesophageal Reflux Disease, Hx Hiatal Hernia Musculoskeltal Medical History: Reports Hx Musculoskeletal Deformity, Reports Hx Musculoskeletal Trauma Skin Medical History: Reports None Psychiatric Medical History: Reports: Hx Attention Deficit Hyperactivity Disorder, Hx Bipolar Disorder, Hx Depression, Hx Post Traumatic Stress Disorder Traumatic Medical History: Reports: Hx Fractures - hand, left foot Infectious Medical History: Reports: None Past Surgical History: Reports: Hx Coronary Artery Bypass Graft, Hx Open Heart Surgery - 01/2017 - Immunizations Immunizations up to date: Yes Hx Diphtheria, Pertussis, Tetanus Vaccination: Yes History of Influenza Vaccine for 12/2016 - 05/2017 Season: No Physical Exam - Vital signs Vitals: Temp Pulse Resp BP Pulse Ox 99.0 F 106 H 16 119/75 95 01/16/18 21:56 01/16/18 21:56 01/16/18 21:56 01/16/18 21:56 01/16/18 21:56 Course - Vital Signs Vital signs: Temp Pulse Resp BP Pulse Ox 99.0 F 106 H 16 119/75 95 01/16/18 21:56 01/16/18 21:56 01/16/18 21:56 01/16/18 21:56 01/16/18 21:56 Doctor's Discharge - Discharge Referrals: REY HERNANDEZ MD [Primary Care Provider] - Follow up as needed
[2018-01-16 22:20] LABS: ABSOLUTE EOSINOPHILS # (AUTO) 0.2 10^3/uL (0.0-0.6); ABSOLUTE LYMPHOCYTES (AUTO) 2.1 10^3/uL (0.5-4.7); ABSOLUTE NEUT (AUTO) 8.5 10^3/uL (1.7-8.2); BASOPHILS % (AUTO) 0.3 % (0-2); EOSINOPHILS % (AUTO) 1.6 % (0-6); HEMATOCRIT 38.9 % (37.9-51.0); HEMOGLOBIN 12.9 g/dL (13.5-17.0); LYMPHOCYTES % (AUTO) 17.5 % (13-45); MEAN CORPUSCULAR HEMOGLOBIN 26.6 pg (27.0-33.4); MEAN CORPUSCULAR HGB CONC 33.3 g/dL (32.0-36.0); MEAN CORPUSCULAR VOLUME 80 fl (80-97); MONOCYTES % (AUTO) 8.4 % (3-13); PLATELET COUNT 251 10^3/uL (150-450); RED BLOOD COUNT 4.87 10^6/uL (4.35-5.55); RED CELL DISTRIBUTION WIDTH 15.4 % (11.5-14.0); SEGMENTED NEUTROPHILS % (AUTO) 72.2 % (42-78); TOTAL CELLS COUNTED % (AUTO) 100 %; WHITE BLOOD COUNT 11.7 10^3/uL (4.0-10.5)
[2018-01-16 22:27] LABS: INTERNATIONAL RATION (INR) 0.83; PROTHROMBIN TIME 11.8 SEC (11.4-15.4)
[2018-01-16 22:28] LABS: PARTIAL THROMBOPLASTIN TIME 28.8 SEC (23.5-35.8)
--- NOTE | 2018-01-16 22:30 | RADIOLOGY REPORT (SQ) ---
EXAM DESCRIPTION: XR CHEST 1 VIEW COMPLETED DATE/TME: 01/16/2018 21:46 CLINICAL HISTORY: 42 years, Male, cp Findings: Heart is not enlarged. Status post median sternotomy. No consolidation or pleural effusion. No pulmonary edema or pneumothorax. IMPRESSION: No acute disease.
[2018-01-16 22:40] LABS: ALANINE AMINOTRANSFERASE 29 U/L (21-72); ALBUMIN 4.3 g/dL (3.5-5.0); ALKALINE PHOSPHATASE 67 U/L (38-126); ANION GAP 15 (5-19); ASPARTATE AMINO TRANSFERASE 37 U/L (17-59); BILIRUBIN,DIRECT 0.2 mg/dL (0.0-0.4); BILIRUBIN,TOTAL 0.9 mg/dL (0.2-1.3); BLOOD UREA NITROGEN 11 mg/dL (7-20); CALCIUM 9.1 mg/dL (8.4-10.2); CARBON DIOXIDE 26 mmol/L (22-30); CHLORIDE 102 mmol/L (98-107); CREATINE KINASE 348 U/L (55-170); GLUCOSE 113 mg/dL (75-110); POTASSIUM 4.2 mmol/L (3.6-5.0); SODIUM 142.6 mmol/L (137-145)
[2018-01-16 22:50] LABS: CREATINE KINASE MB 2.74 ng/mL (<4.55)
--- NOTE | 2018-01-16 22:50 | ER Document Report ---
ED General - General Chief Complaint: Chest Pain Stated Complaint: CHEST PAIN Time Seen by Provider: 01/16/18 22:06 Mode of Arrival: Ambulatory Cannot obtain history due to: Unstable vital signs Notes: 42-year-old male with a history of hypercholesterolemia early coronary artery disease double bypass and resultant pericarditis formally on colchicine presents with "pain in my heart" he says that the pain is been burning, central and then radiates to the right side and over the past few days has moved from the center to the right of his chest and is now pleuritic. It is sometimes worse when lying flat and it feels like past episodes of pericarditis. He denies fever chills or coughing. He is not sure if he is on a blood thinner. He has had a coronary artery bypass graft and has been seen both at [facility] and [facility] in the past. TRAVEL OUTSIDE OF THE [place] IN LAST 30 DAYS: No - Related Data Allergies/Adverse Reactions: gabapentin [From Neurontin] Allergy (Verified 10/31/17 09:10) Swelling Gadolinium-Containing Contrast Medi Allergy (Verified 10/31/17 09:10) Rash, "sore joints", "brain fog" Past Medical History - General Information source: Patient - Social History Smoking Status: Current Every Day Smoker Smoking Education Provided: Yes - The patient ED visit today was directly related to their abuse of tobacco. Family History: Reviewed & Not Pertinent - Past Medical History Cardiac Medical History: Reports: Hx Heart Attack - [place] JANUARY 2017, Hx Hypercholesterolemia, Hx Heart Murmur, Other - He states he has a history of katia-cardial fluid and inflammation Denies: Hx Coronary Artery Disease, Hx Hypertension Pulmonary Medical History: Reports: None Denies: Hx Asthma, Hx Bronchitis, Hx COPD, Hx Pneumonia, Hx Tuberculosis EENT Medical History: Reports: None Neurological Medical History: Reports: None. Denies: Hx Cerebrovascular Accident, Hx Seizures Endocrine Medical History: Reports: None Renal/ Medical History: Reports: Hx Kidney Stones - mar 2010. Denies: Hx Benign Prostatic Hyperplasia, Hx End Stage Renal Disease, Hx Peritoneal Dialysis Malignancy Medical History: Reports None, Denies Hx Leukemia GI Medical History: Reports: Hx Gastritis, Hx Gastroesophageal Reflux Disease, Hx Hiatal Hernia. Denies: Hx Crohn's Disease, Hx Irritable Bowel, Hx Liver Failure, Hx Pancreatitis, Hx Ulcer Musculoskeletal Medical History: Denies Hx Arthritis, Denies Hx Fibromyalgia, Denies Hx Muscular Dystrophy, Reports Hx Musculoskeletal Deformity, Reports Hx Musculoskeletal Trauma Skin Medical History: Reports None Psychiatric Medical History: Reports: Hx Attention Deficit Hyperactivity Disorder, Hx Bipolar Disorder, Hx Depression, Hx Post Traumatic Stress Disorder Denies: Hx Schizophrenia Traumatic Medical History: Reports: Hx Fractures - hand, left foot Infectious Medical History: Reports: None. Denies: Hx HIV Past Surgical History: Reports: Hx Coronary Artery Bypass Graft, Hx Open Heart Surgery - 01/2017. Denies: Hx Colostomy, Hx Pacemaker - Immunizations Immunizations up to date: Yes Hx Diphtheria, Pertussis, Tetanus Vaccination: Yes Review of Systems - Review of Systems Notes: REVIEW OF SYSTEMS GEN: Denies fever, chills, weight loss ENT: Denies sore throat, nasal discharge, ear pain EYES: Denies blurry vision, eye pain, discharge CV: Chest pain RESP: Denies cough, shortness of breath, wheezing GI: Denies abdominal pain, nausea, vomiting, diarrhea MSK: Denies joint pain/swelling, edema, SKIN: Denies rash, skin lesions LYMPH: Denies swollen glands/lymph nodes NEURO: Denies headache, focal weakness or numbness, dizziness PSYCH: Denies depression, suicidal or homicidal ideation PHYSICAL EXAMINATION General: No acute distress, well-nourished Head: Atraumatic, normocephalic ENT: Mouth normal, oropharynx moist, no exudates or tonsillar enlargement Eyes: Conjunctiva normal, pupils equal, lids normal Neck: No JVD, supple, no guarding CVS: Normal rate, regular rhythm, no murmurs unable to detect rub in multiple positions Resp: No resp distress, equal and normal breath sounds bilaterally GI: Nondistended, soft, no tenderness to palpation, no rebound or guarding Ext: No deformities, no edema, normal range of motion in upper and lower ext Back: No CVA or midline TTP Skin: No rash, warm Lymphatic: No lymphadeopathy noted Neuro: Awake, alert. Face symmetric. GCS 15. Physical Exam - Vital signs Vitals: Temp Pulse Resp BP Pulse Ox 99.0 F 106 H 16 119/75 95 01/16/18 21:56 01/16/18 21:56 01/16/18 21:56 01/16/18 21:56 01/16/18 21:56 Course - Re-evaluation Re-evalutation: 01/16/18 22:50 Completed young male with early coronary artery disease presents with chest pain which to him seems like pericarditis. Have elements of pericarditis but also the patient has a history of severe coronary artery disease and is still smoking, his EKG shows some T wave inversions. I do not see evidence of flagrant myopericarditis on his x-ray but I will do an echo to rule out fluid, and a troponin to rule in or out myopericarditis an acute coronary syndrome. 01/17/18 00:10 CT negative for PE labs including troponin are negative. Echo does not show effusion. This is probably a flare of his pericarditis but given his cardiac risk factors he needs to be fully ruled out. Discussed with [facility] does not think the patient needs the cast. Discussed with Dr. Smith who will admit. 01/17/18 00:11 - Vital Signs Vital signs: Temp Pulse Resp BP Pulse Ox 99.0 F 106 H 16 119/75 96 01/16/18 21:56 01/16/18 21:56 01/16/18 21:56 01/16/18 21:56 01/16/18 22:54 - Laboratory Result Diagrams: 01/16/18 22:07 01/16/18 22:07 Laboratory results interpreted by me: 01/16/18 01/16/18 22:07 22:07 WBC 11.7 H Hgb 12.9 L MCH 26.6 L RDW 15.4 H Absolute Neutrophils 8.5 H Glucose 113 H Creatine Kinase 348 H - Diagnostic Test Radiology reviewed: Image reviewed, Reports reviewed - EKG Interpretation by Me EKG shows normal: Sinus rhythm Rate: Normal Rhythm: NSR When compared to previous EKG there are: Changes noted - Inverted T waves in V3 V4 V5 when they were upright prior, no appreciable ST elevation or RI depression Procedures - Ultrasound/Bedside Ultrasound/Bedside Time completed: 22:54 Ultrasound: Other - Limited bedside echo performed. Utilized parasternal long, parasternal short, apical 4chamber and subxiphoid views. Good cardiac wall motion, no effusion either pericardial or pleural on the right. Discharge - Discharge Clinical Impression: Pleuritic chest pain Condition: Good Disposition: ADMITTED OBSERVATION Admitting Provider: Luis Unit Admitted: Telemetry Referrals: OREY LAL MD [Primary Care Provider] - Follow up as needed
[2018-01-16 22:51] LABS: TROPONIN I < 0.012 ng/mL
--- NOTE | 2018-01-16 23:53 | RADIOLOGY REPORT (SQ) ---
CT CHEST ANGIOGRAPHY WITHOUT THEN WITH IV CONTRAST HISTORY: Shortness of breath. Evaluate for pulmonary embolism. COMPARISON: None. TECHNIQUE: CT angiogram of the chest with IV contrast. 3-D MIP images were obtained in coronal and sagittal reconstructions. This exam was performed according to our departmental dose-optimization program, which includes automated exposure control, adjustment of the mA and/or kV according to patient size and/or use of iterative reconstruction technique. FINDINGS: No acute pulmonary embolism is seen. No thoracic aortic aneurysm or dissection. Normal heart size. No pericardial effusion. Thyroid gland is unremarkable. No mediastinal, hilar, or axillary adenopathy is seen. 5 mm nodule in the right upper lobe. No consolidation, pleural effusion, or pneumothorax is identified. Osseous structures are intact. Visualized upper abdomen is unremarkable. IMPRESSION: No acute pulmonary embolism.
[2018-01-17] MEDS ORDERED: OXYCODONE HCL IR 5 MG TABLET PO PRN (00:23)
[2018-01-17 00:51] LABS: INTERNATIONAL RATION (INR) 0.85; PROTHROMBIN TIME 12.1 SEC (11.4-15.4)
[2018-01-17 01:09] LABS: CREATINE KINASE MB 3.73 ng/mL (<4.55)
[2018-01-17 01:15] LABS: TROPONIN I < 0.012 ng/mL
[2018-01-17] MEDS: OXYCODONE HCL IR 5 MG TABLET PO PRN ×3 (02:20→17:06)
[2018-01-17 07:14] LABS: CREATINE KINASE MB 3.46 ng/mL (<4.55)
[2018-01-17 07:15] LABS: TROPONIN I < 0.012 ng/mL
--- NOTE | 2018-01-17 07:42 | EKG REPORT ---
SEVERITY:- ABNORMAL ECG - SINUS TACHYCARDIA PROBABLE LEFT ATRIAL ABNORMALITY BORDERLINE T ABNORMALITIES, ANTERIOR LEADS , INCREASED SINCE LAST EKG 01/15/18., CLINICAL CORRELATION NEEDED. : Confirmed by: Mann Irizarry MD 17-Jan-2018 07:41:35
[2018-01-17] MEDS: ASPIRIN 81 MG TABLET, CHEWABLE PO SCH (09:18)
[2018-01-17] MEDS: FOLIC ACID 1 MG TABLET PO SCH (09:18)
[2018-01-17] MEDS: FENOFIBRATE NANOCRYSTALLIZED 48 MG TABLET PO SCH (09:19)
[2018-01-17] MEDS: COLCHICINE 0.6 MG TABLET PO SCH ×2 (09:19→17:06)
[2018-01-17 13:32] LABS: CREATINE KINASE MB 2.42 ng/mL (<4.55)
[2018-01-17 13:33] LABS: TROPONIN I < 0.012 ng/mL
[2018-01-17] MEDS ORDERED: (PENDING PHARMACY ID) (Ubidecarenone/Vit E Acet [Co Q-10 100 Mg Softgel] 1 EACH) PO SCH (16:30)
[2018-01-17] MEDS ORDERED: EVOLOCUMAB 140 MG SQ SCH (16:30)
[2018-01-17] MEDS ORDERED: FENOFIBRATE NANOCRYSTALLIZED 48 MG TABLET PO SCH (16:30)
[2018-01-17] MEDS: DOCUSATE SODIUM 100 MG CAPSULE PO SCH (17:08)
--- NOTE | 2018-01-17 17:38 | PDOC H&P ---
History of Present Illness Admission Date/PCP: 01/17/18 00:27 REY HERNANDEZ MD History of Present Illness: TRINA CORBETT is a 42 year old male.Patient came to the emergency room for evaluation of pleuritic chest pain, he described chest pain associated with cough or breathing, the pain is located on the right side of the chest. CTA chest was done, it was negative for pulmonary embolism, there is no pneumonia or mass,He has history of coronary artery disease,Status post coronary artery bypass grafting Past Medical History Cardiac Medical History: Reports: Coronary Artery Disease, Myocardial Infarction - [place] JANUARY 2017, Hyperlipidema, Heart Murmur, Other - He states he has a history of katia-cardial fluid and inflammation Pulmonary Medical History: Reports: None EENT Medical History: Reports: None Neurological Medical History: Reports: None Endocrine Medical History: Reports: None Malignancy Medical History: Reports: None GI Medical History: Reports: Gastroesophageal Reflux Disease, Hiatal Hernia Skin Medical History: Reports: None Psychiatric Medical History: Reports: Attention Deficit Hyperactivity Disorder, Bipolar Disorder, Depression, Post Traumatic Stress Disorder Infectious Medical History: Reports: None Past Surgical History Past Surgical History: Reports: Coronary Artery Bypass Graft Social History Smoking Status: Current Every Day Smoker Frequency of Alcohol Use: None Hx Recreational Drug Use: No Drugs: Other Hx Prescription Drug Abuse: No Family History Family History: Reviewed & Not Pertinent Parental Family History Reviewed: Yes Children Family History Reviewed: Yes Sibling(s) Family History Reviewed.: Yes Medication/Allergy Home Medications: Atorvastatin Calcium [Lipitor 40 mg Tablet] 40 mg PO QHS 06/20/17 Colchicine [Colchicine 0.6 mg Tablet] 0.6 mg PO BID 06/20/17 Folic Acid [Folvite 1 mg Tablet] 1 mg PO DAILY 06/20/17 Oxycodone HCl [Oxy-Ir 5 mg Tablet] 10 mg PO Q6HP PRN 06/20/17 Aspirin 81 mg PO DAILY 10/24/17 Dextroamphetamine/Amphetamine [Adderall 20 mg Tablet] 20 mg PO TID 01/17/18 Docusate Sodium [Stool Softener] 200 mg PO DAILY 01/17/18 Evolocumab [Repatha Syringe] 140 mg [id number] 01/17/18 Fenofibrate Nanocrystallized [Tricor 48 mg Tablet] 48 mg PO DAILY 01/17/18 Trazodone HCl [Desyrel 50 mg Tablet] 50 mg PO QHS 01/17/18 Ubidecarenone/Vit E Acet [Co Q-10 100 mg Softgel] 1 each PO DAILY 01/17/18 Allergies/Adverse Reactions: gabapentin [From Neurontin] Allergy (Verified 10/31/17 09:10) Swelling Gadolinium-Containing Contrast Medi Allergy (Verified 10/31/17 09:10) Rash, "sore joints", "brain fog" Review of Systems Constitutional: ABSENT: chills, fever(s), headache(s), weight gain, weight loss Eyes: ABSENT: visual disturbances Ears: ABSENT: hearing changes Cardiovascular: PRESENT: chest pain. ABSENT: dyspnea on exertion, edema, orthropnea, palpitations Respiratory: ABSENT: cough, hemoptysis Gastrointestinal: ABSENT: abdominal pain, constipation, diarrhea, hematemesis, hematochezia, nausea, vomiting Genitourinary: ABSENT: dysuria, hematuria Musculoskeletal: ABSENT: joint swelling Integumentary: ABSENT: rash, wounds Neurological: ABSENT: abnormal gait, abnormal speech, confusion, dizziness, focal weakness, syncope Psychiatric: ABSENT: anxiety, depression, homidical ideation, suicidal ideation Endocrine: ABSENT: cold intolerance, heat intolerance, menstrual abnormalities, polydipsia, polyuria Hematologic/Lymphatic: ABSENT: easy bleeding, easy bruising, lymphadenopathy Physical Exam Vital Signs: Temp Pulse Resp BP Pulse Ox 98.9 F 77 18 101/64 99 01/17/18 15:24 01/17/18 15:24 01/17/18 15:24 01/17/18 15:24 01/17/18 15:24 Intake & Output 01/16/18 01/17/18 01/18/18 06:59 06:59 06:59 Intake Total 444 118 Balance 444 118 Weight 81.5 kg General appearance: PRESENT: no acute distress, well-developed, well-nourished Head exam: PRESENT: atraumatic, normocephalic Eye exam: PRESENT: conjunctiva pink, EOMI, PERRLA Ear exam: PRESENT: normal external ear exam Mouth exam: PRESENT: moist, tongue midline Neck exam: PRESENT: full ROM Respiratory exam: PRESENT: clear to auscultation zack Cardiovascular exam: PRESENT: RRR, +S1, +S2 Pulses: PRESENT: normal dorsalis pedis pul, +2 pedal pulses bilateral Vascular exam: PRESENT: normal capillary refill GI/Abdominal exam: PRESENT: normal bowel sounds, soft Rectal exam: PRESENT: deferred Neurological exam: PRESENT: alert, awake, oriented to person, oriented to place , oriented to time, oriented to situation, CN II-XII grossly intact Psychiatric exam: PRESENT: appropriate affect, normal mood Skin exam: PRESENT: dry, intact, warm Results Laboratory Results: 01/17/18 01/17/18 01/17/18 00:36 06:23 12:33 CK-MB (CK-2) 3.73 3.46 2.42 Troponin I < 0.012 < 0.012 < 0.012 Impressions: Chest X-Ray 01/16/18 21:46 IMPRESSION: No acute disease. Chest/Abdomen CTA 01/16/18 22:55 IMPRESSION: No acute pulmonary embolism. Assessment & Plan - Diagnosis (1) Chest pain Qualifiers: Chest pain type: chest pain on breathing Qualified Code(s): R07.1 - Chest pain on breathing; R07.81 - Pleurodynia Is this a current diagnosis for this admission?: Yes Plan: The chest pain is pleuritic, 3 sets of cardiac enzymes negative, 2D echo ordered because he has history of pericardial effusion, twelve-lead EKG showed diffuse T wave inversion in precordial leads
--- NOTE | 2018-01-17 19:24 | XCELERA REPORT ---
[address] [address] Transthoracic Echocardiogram Report Name: TRINA CORBETT Age: 42 yrs Gender: Male : 1975 Patient Status: Inpatient Patient Location: [facility]^A Study Date: 01/17/2018 05:22 PM Height: 69 in Weight: 179 lb BSA: 2.0 m2 Procedure: A complete two-dimensional transthoracic echocardiogram was performed (2D, M-mode, spectral and color flow Doppler). The study was technically adequate with some images being suboptimal in quality. Reason For Study: CAD /CHEST PAIN Ordering Physician: REY HERNANDEZ Performed By: Ursula Flower Interpretation Summary The left ventricular ejection fraction is normal. There is borderline concentric left ventricular hypertrophy. The left ventricle is grossly normal size. LV diastolic function could not be adequately assessed. Wall motion cannot be accurately commented on, but no definite regional wall motion abnormalities noted. The right ventricular systolic function is normal. Borderline right atrial enlargement. The left atrial size is normal. There is a trace amount of mitral regurgitation There is no mitral valve stenosis. There is no aortic valve stenosis No aortic regurgitation is present. There is a trace or physiologic amount of tricuspid regurgitation Tricuspid regurgitation jet envelope not well defined to measure RV systolic pressure accurately. The aortic root is not well visualized but is probably normal size. The inferior vena cava appeared normal and decreased > 50% with respiration (RAP 5-10 mmHg) There is no pericardial effusion. MMode/2D Measurements & Calculations RVDd: 2.7 cm LVIDd: 4.3 cm FS: 39.6 % Ao root diam: 2.9 cm IVSd: 1.1 cm LVIDs: 2.6 cm EDV(Teich): 81.9 ml Ao root area: 6.8 cm2 LVPWd: 0.98 cm ESV(Teich): 24.1 ml LA dimension: 3.2 cm EF(Teich): 70.5 % Doppler Measurements & Calculations MV E max jj: MV P1/2t max jj: Ao V2 max: LV V1 max P.1 cm/sec 80.8 cm/sec 123.8 cm/sec 3.3 mmHg MV A max jj: MV P1/2t: 48.5 msec Ao max PG: LV V1 max: 57.3 cm/sec MVA(P1/2t): 4.5 cm2 6.1 mmHg 90.8 cm/sec MV E/A: 1.3 MV dec slope: 488.1 cm/sec2 MV dec time: 0.15 sec PA V2 max: PI end-d jj: TR max jj: MV P1/2t-pr_phl: 116.7 cm/sec 101.8 cm/sec 209.6 cm/sec 48.5 msec PA max PG: TR max P.5 mmHg 17.6 mmHg Left Ventricle The left ventricle is grossly normal size. There is borderline concentric left ventricular hypertrophy. The left ventricular ejection fraction is normal. LV diastolic function could not be adequately assessed. Wall motion cannot be accurately commented on, but no definite regional wall motion abnormalities noted. Right Ventricle The right ventricle is grossly normal size. There is normal right ventricular wall thickness. The right ventricular systolic function is normal. Atria Borderline right atrial enlargement. The left atrial size is normal. Interarterial septum not well visualized and not well dopplered. Cannot comment on ASD/PFO presence. Mitral Valve The mitral valve leaflets are sclerotic, but show no functional abnormalities. There is no mitral valve stenosis. There is a trace amount of mitral regurgitation. Aortic Valve The aortic valve is grossly normal. There is no aortic valve stenosis. No aortic regurgitation is present. Tricuspid Valve The tricuspid valve is not well visualized, but is grossly normal. There is no tricuspid stenosis. There is a trace or physiologic amount of tricuspid regurgitation. Tricuspid regurgitation jet envelope not well defined to measure RV systolic pressure accurately. Pulmonic Valve The pulmonic valve is not well visualized. Great Vessels The aortic root is not well visualized but is probably normal size. The inferior vena cava appeared normal and decreased > 50% with respiration (RAP 5-10 mmHg). Effusions There is no pericardial effusion. : REY HERNANDEZ > Desi Xavier
[2018-01-17] MEDS ORDERED: TRAZODONE HCL 50 MG TABLET PO SCH (22:00)
[2018-01-17] MEDS ORDERED: ATORVASTATIN CALCIUM 40 MG TABLET PO SCH (22:00)
[2018-01-18] MEDS: OXYCODONE HCL IR 5 MG TABLET PO PRN ×3 (00:13→12:48)
[2018-01-18 05:20] LABS: ABSOLUTE EOSINOPHILS # (AUTO) 0.3 10^3/uL (0.0-0.6); ABSOLUTE LYMPHOCYTES (AUTO) 2.7 10^3/uL (0.5-4.7); ABSOLUTE MONOCYTES (AUTO) 0.8 10^3/uL (0.1-1.4); ABSOLUTE NEUT (AUTO) 5.7 10^3/uL (1.7-8.2); BASOPHILS % (AUTO) 0.3 % (0-2); EOSINOPHILS % (AUTO) 3.2 % (0-6); HEMATOCRIT 39.3 % (37.9-51.0); HEMOGLOBIN 13.5 g/dL (13.5-17.0); LYMPHOCYTES % (AUTO) 28.6 % (13-45); MEAN CORPUSCULAR HEMOGLOBIN 27.4 pg (27.0-33.4); MEAN CORPUSCULAR HGB CONC 34.5 g/dL (32.0-36.0); MEAN CORPUSCULAR VOLUME 79 fl (80-97); MONOCYTES % (AUTO) 8.3 % (3-13); PLATELET COUNT 241 10^3/uL (150-450); RED BLOOD COUNT 4.95 10^6/uL (4.35-5.55); RED CELL DISTRIBUTION WIDTH 14.8 % (11.5-14.0); SEGMENTED NEUTROPHILS % (AUTO) 59.6 % (42-78); TOTAL CELLS COUNTED % (AUTO) 100 %; WHITE BLOOD COUNT 9.6 10^3/uL (4.0-10.5)
[2018-01-18 05:41] LABS: ANION GAP 14 (5-19); BLOOD UREA NITROGEN 13 mg/dL (7-20); CALCIUM 9.6 mg/dL (8.4-10.2); CARBON DIOXIDE 24 mmol/L (22-30); CHLORIDE 105 mmol/L (98-107); CHOLESTEROL 129.98 mg/dL (0-200); GLUCOSE 104 mg/dL (75-110); POTASSIUM 4.2 mmol/L (3.6-5.0); SODIUM 142.8 mmol/L (137-145); TRIGLYCERIDES 114 mg/dL (<150)
[2018-01-18 05:53] LABS: DIRECT LDL 75 mg/dL (<100)
[2018-01-18] MEDS: ASPIRIN 81 MG TABLET, CHEWABLE PO SCH (09:24)
[2018-01-18] MEDS: DOCUSATE SODIUM 100 MG CAPSULE PO SCH (09:24)
[2018-01-18] MEDS: FENOFIBRATE NANOCRYSTALLIZED 48 MG TABLET PO SCH (09:24)
[2018-01-18] MEDS: COLCHICINE 0.6 MG TABLET PO SCH ×2 (09:24→17:46)
[2018-01-18] MEDS: FOLIC ACID 1 MG TABLET PO SCH (09:25)
[2018-01-18] MEDS: KETOROLAC TROMETHAMINE INJ/PF 30 MG/1 ML SDV IV SCH ×2 (12:08→17:44)
[2018-01-18 18:38] VITALS: BP 113/74
--- NOTE | 2018-01-18 20:13 | PDOC DISCHARGE SUMMARY ---
General - Admit/Disc Date/PCP Admission Date/Primary Care Provider: 01/17/18 00:27 REY HERNANDEZ MD Discharge Date: 01/18/18 - Discharge Diagnosis (1) Chest pain Is this a current diagnosis for this admission?: Yes (2) Pleuritic chest pain Is this a current diagnosis for this admission?: Yes - Additional Information Discharge Activity: Activity As Tolerated Home Medications: Atorvastatin Calcium [Lipitor 40 mg Tablet] 40 mg PO QHS 06/20/17 Colchicine [Colchicine 0.6 mg Tablet] 0.6 mg PO BID 06/20/17 Folic Acid [Folvite 1 mg Tablet] 1 mg PO DAILY 06/20/17 Oxycodone HCl [Oxy-Ir 5 mg Tablet] 10 mg PO Q6HP PRN 06/20/17 Aspirin 81 mg PO DAILY 10/24/17 Dextroamphetamine/Amphetamine [Adderall 20 mg Tablet] 20 mg PO TID 01/17/18 Docusate Sodium [Stool Softener] 200 mg PO DAILY 01/17/18 Evolocumab [Repatha Syringe] 140 mg [id number] 01/17/18 Fenofibrate Nanocrystallized [Tricor 48 mg Tablet] 48 mg PO DAILY 01/17/18 Trazodone HCl [Desyrel 50 mg Tablet] 50 mg PO QHS 01/17/18 Ubidecarenone/Vit E Acet [Co Q-10 100 mg Softgel] 1 each PO DAILY 01/17/18 History of Present Illness History of Present Illness: TRINA CORBETT is a 42 year old male.Patient came to the emergency room for evaluation of pleuritic chest pain, he described chest pain associated with cough or breathing, the pain is located on the right side of the chest. CTA chest was done, it was negative for pulmonary embolism, there is no pneumonia or mass,He has history of coronary artery disease,Status post coronary artery bypass grafting Hospital Course Hospital Course: Patient was admitted for the management of pleuritic chest pain, CTA chest negative for PE, 2D echo was done there is no pericardial effusion. He was treated with IV Toradol with good result, he received 2 doses ,3 sets of enzymes negative for acute [place]. Physical Exam Vital Signs: Temp Pulse Resp BP Pulse Ox 97.6 F 76 16 113/74 100 01/18/18 18:35 01/18/18 18:35 01/18/18 18:35 01/18/18 18:35 01/18/18 18:35 Intake & Output 01/17/18 01/18/18 01/19/18 06:59 06:59 06:59 Intake Total 161 661 9675 Balance 866 829 8582 Weight 81.5 kg 81.1 kg General appearance: PRESENT: no acute distress, well-developed, well-nourished Head exam: PRESENT: atraumatic, normocephalic Eye exam: PRESENT: conjunctiva pink, EOMI, PERRLA Ear exam: PRESENT: normal external ear exam Mouth exam: PRESENT: moist, tongue midline Neck exam: PRESENT: full ROM Respiratory exam: PRESENT: clear to auscultation zack Cardiovascular exam: PRESENT: RRR, +S1, +S2 Vascular exam: PRESENT: normal capillary refill GI/Abdominal exam: PRESENT: normal bowel sounds, soft Rectal exam: PRESENT: deferred Neurological exam: PRESENT: alert, awake, oriented to person, oriented to place , oriented to time, oriented to situation, CN II-XII grossly intact Psychiatric exam: PRESENT: appropriate affect, normal mood Skin exam: PRESENT: dry, intact, warm Results Laboratory Results: 01/18/18 04:25 01/18/18 04:25 01/18/18 01/18/18 04:25 04:25 WBC 9.6 RBC 4.95 Hgb 13.5 Hct 39.3 MCV 79 L MCH 27.4 MCHC 34.5 RDW 14.8 H Plt Count 241 Seg Neutrophils % 59.6 Lymphocytes % 28.6 Monocytes % 8.3 Eosinophils % 3.2 Basophils % 0.3 Absolute Neutrophils 5.7 Absolute Lymphocytes 2.7 Absolute Monocytes 0.8 Absolute Eosinophils 0.3 Absolute Basophils 0.0 Sodium 142.8 Potassium 4.2 Chloride 105 Carbon Dioxide 24 Anion Gap 14 BUN 13 Creatinine 1.02 Est GFR ( Amer) > 60 Est GFR (Non-Af Amer) > 60 Glucose 104 Calcium 9.6 Triglycerides 114 Cholesterol 129.98 LDL Cholesterol Direct 75 VLDL Cholesterol 23.0 HDL Cholesterol 47 01/17/18 01/17/18 01/17/18 00:36 06:23 12:33 CK-MB (CK-2) 3.73 3.46 2.42 Troponin I < 0.012 < 0.012 < 0.012 Impressions: Chest X-Ray 01/16/18 21:46 IMPRESSION: No acute disease. Chest/Abdomen CTA 01/16/18 22:55 IMPRESSION: No acute pulmonary embolism. Qualifiers - * PATIENT BEING DISCHARGED WITH ANY OF THE FOLLOWING DIAGNOSIS: No
== END 2018-01-18 18:50 | disposition home or self-care (01) ==
LOC: ER 21:36 → EH 01-17 00:27 → 3W 01-17 01:55
PROVIDERS: ADMIT Internal Medicine; ATTEND Internal Medicine
DX: R07.81 Pleurodynia (principal); I25.10 Atherosclerotic heart disease of native coronary artery without angina pectoris; F17.200 Nicotine dependence, unspecified, uncomplicated; E78.5 Hyperlipidemia, unspecified; Z79.82 Long term (current) use of aspirin; Z79.899 Other long term (current) drug therapy; I25.2 Old myocardial infarction; Z95.1 Presence of aortocoronary bypass graft; Z87.19 Personal history of other diseases of the digestive system; Z87.442 Personal history of urinary calculi
CPT/HCPCS: 93005; 99285; 36415 ×2; 82553 ×2; 82550; 85025 ×2; 85610 ×2; 85730; 80048; 80053; 84484 ×2; 80061; 93306; 71045; 71275; 93010; G0378 ×3; A9270 ×13; J1885; J3490

== ENCOUNTER 2018-07-19 01:29 | Emergency (ER) | payer MEDICARE, MEDICAID | END 2018-07-19 01:52 | disposition left against medical advice (07) | LOC: ER 01:29 | DX: Z53.21 Procedure and treatment not carried out due to patient leaving prior to being seen by health care provider (principal) ==

== ENCOUNTER 2018-07-31 18:36 | Emergency (ER) | payer MEDICARE, MEDICAID ==
[2018-07-31 19:13] LABS: ABSOLUTE EOSINOPHILS # (AUTO) 0.1 10^3/uL (0.0-0.6); ABSOLUTE LYMPHOCYTES (AUTO) 0.9 10^3/uL (0.5-4.7); ABSOLUTE MONOCYTES (AUTO) 0.5 10^3/uL (0.1-1.4); BASOPHILS % (AUTO) 0.1 % (0-2); EOSINOPHILS % (AUTO) 0.5 % (0-6); HEMATOCRIT 41.8 % (37.9-51.0); HEMOGLOBIN 13.6 g/dL (13.5-17.0); MEAN CORPUSCULAR HGB CONC 32.4 g/dL (32.0-36.0); MEAN CORPUSCULAR VOLUME 80 fl (80-97); MONOCYTES % (AUTO) 3.1 % (3-13); PLATELET COUNT 250 10^3/uL (150-450); RED CELL DISTRIBUTION WIDTH 15.2 % (11.5-14.0); SEGMENTED NEUTROPHILS % (AUTO) 90.3 % (42-78); TOTAL CELLS COUNTED % (AUTO) 100 %; WHITE BLOOD COUNT 15.5 10^3/uL (4.0-10.5)
[2018-07-31 19:32] LABS: ALANINE AMINOTRANSFERASE 25 U/L (21-72); ALBUMIN 3.7 g/dL (3.5-5.0); ALKALINE PHOSPHATASE 68 U/L (38-126); ANION GAP 8 (5-19); ASPARTATE AMINO TRANSFERASE 21 U/L (17-59); BILIRUBIN,DIRECT 0.2 mg/dL (0.0-0.4); BILIRUBIN,TOTAL 0.8 mg/dL (0.2-1.3); BLOOD UREA NITROGEN 12 mg/dL (7-20); CALCIUM 9.3 mg/dL (8.4-10.2); CARBON DIOXIDE 27 mmol/L (22-30); CHLORIDE 107 mmol/L (98-107); GLUCOSE 86 mg/dL (75-110)
[2018-07-31] MEDS ORDERED: METOCLOPRAMIDE HCL INJ/PF 10 MG/2 ML SDV IV ONE (19:47)
[2018-07-31] MEDS ORDERED: DIPHENHYDRAMINE HCL 50 MG/ML VIAL IV ONE (19:47)
--- NOTE | 2018-07-31 19:54 | ER Document Report ---
ED General - General Chief Complaint: Nausea/Vomiting Stated Complaint: ABDOMINAL PAIN Time Seen by Provider: 07/31/18 19:28 Primary Care Provider: REY HERNANDEZ MD [Primary Care Provider] - Follow up as needed Mode of Arrival: Ambulatory Information source: Patient Notes: 42-year-old male with coronary artery disease, diverticulosis, hyperlipidemia, bipolar disorder, PTSD presents with complaint of nausea, vomiting, abdominal pain and myalgia. Patient states symptoms started 3 hours prior to arrival. He states nausea started first followed by multiple episodes of nonbloody nonbilious emesis. Patient's abdominal pain is generalized described as crampi ng. He denies any associated diarrhea, fever, chills, chest pain, shortness of breath. He does admit to some dysuria. TRAVEL OUTSIDE OF THE [place] IN LAST 30 DAYS: No - HPI Onset: Just prior to arrival Onset/Duration: Sudden Quality of pain: Achy, Burning Severity: Mild Associated symptoms: Body/muscle aches, Nausea, Vomiting, Other - Chronic low back pain. denies: Chest pain, Diarrhea, Fever, Headache, Shortness of breath Exacerbated by: Denies Relieved by: Denies Similar symptoms previously: Yes Recently seen / treated by doctor: No - Related Data Allergies/Adverse Reactions: gabapentin [From Neurontin] Allergy (Verified 10/31/17 09:10) Swelling Gadolinium-Containing Contrast Medi Allergy (Verified 10/31/17 09:10) Rash, "sore joints", "brain fog" Past Medical History - General Information source: Patient, PENDING SALE TO [facility] Records - Social History Smoking Status: Current Every Day Smoker Cigarette use (# per day): Yes - 15 Smoking Education Provided: Yes - Smoking cessation counseling was provided for 4 minutes at the bedside Frequency of alcohol use: Occasional Drug Abuse: None Lives with: Family Family History: Reviewed & Not Pertinent Patient has suicidal ideation: No Patient has homicidal ideation: No - Past Medical History Cardiac Medical History: Reports: Hx Coronary Artery Disease, Hx Heart Attack - [place] JANUARY 2017, Hx Hypercholesterolemia, Hx Heart Murmur Denies: Hx Hypertension Pulmonary Medical History: Denies: Hx Asthma, Hx Bronchitis, Hx COPD, Hx Pneumonia, Hx Tuberculosis Neurological Medical History: Denies: Hx Cerebrovascular Accident, Hx Seizures Renal/ Medical History: Reports: Hx Kidney Stones - mar 2010. Denies: Hx Benign Prostatic Hyperplasia, Hx End Stage Renal Disease, Hx Peritoneal Dialysis Malignancy Medical History: Denies Hx Leukemia GI Medical History: Reports: Hx Gastritis, Hx Gastroesophageal Reflux Disease, Hx Hiatal Hernia. Denies: Hx Crohn's Disease, Hx Irritable Bowel, Hx Liver Failure, Hx Pancreatitis, Hx Ulcer Musculoskeletal Medical History: Denies Hx Arthritis, Denies Hx Fibromyalgia, Denies Hx Muscular Dystrophy, Reports Hx Musculoskeletal Deformity, Reports Hx Musculoskeletal Trauma Psychiatric Medical History: Reports: Hx Attention Deficit Hyperactivity Disorder, Hx Bipolar Disorder, Hx Depression, Hx Post Traumatic Stress Disorder Denies: Hx Schizophrenia Traumatic Medical History: Reports: Hx Fractures - hand, left foot Infectious Medical History: Denies: Hx HIV Past Surgical History: Reports: Hx Coronary Artery Bypass Graft, Hx Open Heart Surgery - 01/2017. Denies: Hx Colostomy, Hx Pacemaker - Immunizations Immunizations up to date: Yes Hx Diphtheria, Pertussis, Tetanus Vaccination: Yes Review of Systems - Review of Systems Notes: REVIEW OF SYSTEMS: CONSTITUTIONAL : Denies fever, chills, or sweats. Denies recent illness. Denies weight loss, recent hospitalizations. EENT: Denies visual changes, eye pain. Denies sore throat, oral lesions, difficulty swallowing. CARDIOVASCULAR: Denies chest pain. Denies palpitations. Denies lower extremity edema. RESPIRATORY: Denies cough. Denies shortness of breath, wheezing. GASTROINTESTINAL: Denies abdominal distention. Denies diarrhea. Denies blood in vomitus, stools, or per rectum. Denies black, tarry stools. Denies constipation. GENITOURINARY: Denies difficulty urinating, painful urination, frequency, bloo d in urine, testicular pain or penile discharge. MUSCULOSKELETAL: Denies neck pain or stiffness. Denies joint pain or swelling. SKIN: Denies rash, lesions or sores. HEMATOLOGIC : Denies easy bruising or bleeding. LYMPHATIC: Denies swollen glands. NEUROLOGICAL: Denies confusion or altered mental status. Denies loss of consciousness. Denies dizziness or lightheadedness. Denies headache. Denies weakness or paralysis. Denies problems difficulty with ambulation, slurred speech. Denies sensory loss, numbness, or tingling. Denies seizures. PSYCHIATRIC: Denies anxiety or stress. Denies depression, suicidal ideation, or Physical Exam - Vital signs Vitals: Temp Pulse BP Pulse Ox 98.5 F 73 94/56 L 100 07/31/18 18:51 07/31/18 18:51 07/31/18 18:51 07/31/18 18:51 - Notes Notes: PHYSICAL EXAMINATION: GENERAL: Well-appearing, well-nourished and in no acute distress. HEAD: Atraumatic, normocephalic. EYES: Pupils equal round and reactive to light, extraocular movements intact, sclera anicteric, conjunctiva are normal. ENT: Nares patent, oropharynx clear without exudates. Moist mucous membranes. NECK: Normal range of motion, supple without lymphadenopathy LUNGS: Breath sounds clear to auscultation bilaterally and equal. No wheezes rales or rhonchi. HEART: Regular rate and rhythm without murmurs ABDOMEN: Soft, nontender, nondistended abdomen. No guarding, no rebound. No masses appreciated. Musculoskeletal: Normal range of motion, no pitting or edema. No cyanosis. NEUROLOGICAL: Cranial nerves grossly intact. Normal speech, normal gait. Normal sensory, motor exams PSYCH: Normal mood, normal affect. SKIN: Warm, Dry, normal turgor, no rashes or lesions noted. Course - Re-evaluation Re-evalutation: Laboratory 07/31/18 07/31/18 07/31/18 18:54 18:54 18:54 WBC 15.5 H RBC 5.20 Hgb 13.6 Hct 41.8 MCV 80 MCH 26.0 L MCHC 32.4 RDW 15.2 H Plt Count 250 Seg Neutrophils % 90.3 H Lymphocytes % 6.0 L Monocytes % 3.1 Eosinophils % 0.5 Basophils % 0.1 Absolute Neutrophils 14.0 H Absolute Lymphocytes 0.9 Absolute Monocytes 0.5 Absolute Eosinophils 0.1 Absolute Basophils 0.0 Sodium 142.0 Potassium 4.0 Chloride 107 Carbon Dioxide 27 Anion Gap 8 BUN 12 Creatinine 1.15 Est GFR ( Amer) > 60 Est GFR (Non-Af Amer) > 60 Glucose 86 Calcium 9.3 Total Bilirubin 0.8 Direct Bilirubin 0.2 Neonat Total Bilirubin Not Reportable Neonat Direct Bilirubin Not Reportable Neonat Indirect Bili Not Reportable AST 21 ALT 25 Alkaline Phosphatase 68 Total Protein 6.0 L Albumin 3.7 Lipase Urine Color YELLOW Urine Appearance CLOUDY Urine pH 7.0 Ur Specific [place] 1.015 Urine Protein NEGATIVE Urine Glucose (UA) NEGATIVE Urine Ketones NEGATIVE Urine Blood NEGATIVE Urine Nitrite NEGATIVE Urine Bilirubin NEGATIVE Urine Urobilinogen NEGATIVE Ur Leukocyte Esterase NEGATIVE Urine WBC (Auto) 2 Urine RBC (Auto) 0 Urine Bacteria (Auto) TRACE Amorphous Sediment Auto TRACE Urine Mucus (Auto) RARE Urine Ascorbic Acid 20 H Urine Opiates Screen Urine Methadone Screen Ur Barbiturates Screen Ur Phencyclidine Scrn Ur Amphetamines Screen U Benzodiazepines Scrn Urine Cocaine Screen U Marijuana (THC) Screen 07/31/18 07/31/18 18:54 20:00 WBC RBC Hgb Hct MCV MCH MCHC RDW Plt Count Seg Neutrophils % Lymphocytes % Monocytes % Eosinophils % Basophils % Absolute Neutrophils Absolute Lymphocytes Absolute Monocytes Absolute Eosinophils Absolute Basophils Sodium Potassium Chloride Carbon Dioxide Anion Gap BUN Creatinine Est GFR ( Amer) Est GFR (Non-Af Amer) Glucose Calcium Total Bilirubin Direct Bilirubin Neonat Total Bilirubin Neonat Direct Bilirubin Neonat Indirect Bili AST ALT Alkaline Phosphatase Total Protein Albumin Lipase 96.5 Urine Color Urine Appearance Urine pH Ur Specific [place] Urine Protein Urine Glucose (UA) Urine Ketones Urine Blood Urine Nitrite Urine Bilirubin Urine Urobilinogen Ur Leukocyte Esterase Urine WBC (Auto) Urine RBC (Auto) Urine Bacteria (Auto) Amorphous Sediment Auto Urine Mucus (Auto) Urine Ascorbic Acid Urine Opiates Screen UNCONFIRMED POSITIVE Urine Methadone Screen NEGATIVE Ur Barbiturates Screen NEGATIVE Ur Phencyclidine Scrn NEGATIVE Ur Amphetamines Screen NEGATIVE U Benzodiazepines Scrn NEGATIVE Urine Cocaine Screen NEGATIVE U Marijuana (THC) Screen UNCONFIRMED POSITIVE Abdomen/Pelvis CT 07/31/18 19:49 IMPRESSION: Findings suggestive of enteritis. Temp Pulse Resp BP Pulse Ox 98.5 F 73 94/56 L 100 07/31/18 18:51 07/31/18 18:51 07/31/18 18:51 07/31/18 18:51 07/31/18 21:37 Patient reevaluated and reports improvement of his nausea after receiving Reglan and Benadryl. Still complaining of myalgia. But reports improvement of nausea. 08/01/18 02:18 42-year-old male presents with complaint of nausea, vomiting and diarrhea as well as abdominal pain that started just prior to arrival. Vital signs reviewed and within normal limits except for mild hypotension which resolved prior to discharge. CBC shows a leukocytosis but no anemia. CMP is without electrolyte abnormality or elevation in patient's LFTs. Lipase within normal limits. CT of the abdomen pelvis consistent with enteritis. Patient to receive IV fluids, Reglan, Benadryl, Zofran, Toradol and Flagyl. Patient tolerating fluids prior to discharge. Patient was evaluated and treated as appropriate for the patient's presenting symptoms and complaint, with consideration of any critical or life threatening conditions that may be associated with their obtained history and exam as noted above. All results were discussed with patient. Patient provided the opportunity to ask questions, and express concerns. Patient was educated on treatments based on their presumed diagnosis as noted above. At this time we will discharge the patient with return precautions and follow-up recommendations. Verbal discharge instructions given a the bedside. Medication warnings reviewed. Patient is in agreement with this plan and has verbalized understanding of return precautions. After careful consideration I feel that that patient can be safely discharged fr the emergency department, they were advised to followup with a primary care physician in 2-3 days. Dictation on this chart was performed using voice recognition software and may result in unintended grammatical, spelling, syntax or errors. 08/01/18 02:19 - Vital Signs Vital signs: Temp Pulse Resp BP Pulse Ox 98.8 F 90 18 100/53 L 95 07/31/18 23:03 07/31/18 23:03 07/31/18 23:03 07/31/18 23:03 07/31/18 23:03 - Laboratory Result Diagrams: 07/31/18 18:54 07/31/18 18:54 Laboratory results interpreted by me: 07/31/18 07/31/18 07/31/18 18:54 18:54 18:54 WBC 15.5 H MCH 26.0 L RDW 15.2 H Seg Neutrophils % 90.3 H Lymphocytes % 6.0 L Absolute Neutrophils 14.0 H Total Protein 6.0 L Urine Ascorbic Acid 20 H - Diagnostic Test Radiology reviewed: Image reviewed, Reports reviewed Discharge - Discharge Clinical Impression: Enteritis Nausea & vomiting Qualifiers: Vomiting type: unspecified Vomiting Intractability: non-intractable Qualified Code(s): R11.2 - Nausea with vomiting, unspecified Condition: Good Disposition: HOME, SELF-CARE Instructions: Abdominal Pain ([facility]), Antinausea Medication ([facility]), Intravenous (IV) Fluids ([facility]), Vomiting ([facility]) Additional Instructions: Your CAT scan today showed enteritis. This could be inflammatory versus infectious. We will treat you with an antibiotic. Please follow-up with your primary care physician in the next 48 hours. Please return to the emergency department with fever, persistent nausea, vomiting or any other symptom that are concerning to you. Prescriptions: Dicyclomine HCl [Bentyl 20 mg Tablet] 20 mg PO Q8H #14 tablet Metronidazole [Flagyl 500 mg Tablet] 500 mg PO BID 7 Days #14 tablet Ondansetron [Zofran Odt 4 mg Tablet] 1 - 2 tab PO Q4H PRN #15 tab.rapdis PRN Reason: For Nausea/Vomiting Referrals: REY HERNANDEZ MD [Primary Care Provider] - Follow up as needed
[2018-07-31 19:56] LABS: AMORPHOUS SEDIMENT,URINE TRACE /HPF; APPEARANCE,URINE CLOUDY; BILIRUBIN,URINE NEGATIVE (NEGATIVE); COLOR,URINE YELLOW; GLUCOSE, URINE NEGATIVE (NEGATIVE); KETONES,URINE NEGATIVE (NEGATIVE); LEUKOCYTE ESTERASE,URINE NEGATIVE (NEGATIVE); NITRITE,URINE NEGATIVE (NEGATIVE); PROTEIN,URINE NEGATIVE (NEGATIVE); URINE SPECIFIC GRAVITY 1.015; UROBILINOGEN,URINE NEGATIVE mg/dL (<2.0)
[2018-07-31] MEDS: RINGERS SOLUTION,LACTATED 1,000 ML IV PRN ×2 (20:13→21:16)
[2018-07-31 20:39] LABS: URINE AMPHETAMINES SCREEN NEGATIVE; URINE BARBITURATES SCREEN NEGATIVE; URINE BENZODIAZEPINES SCREEN NEGATIVE; URINE COCAINE SCREEN NEGATIVE; URINE MARIJUANA (THC) SCREEN UNCONFIRMED POSITIVE; URINE METHADONE SCREEN NEGATIVE; URINE PHENCYCLIDINE SCREEN NEGATIVE
--- NOTE | 2018-07-31 20:49 | RADIOLOGY REPORT (SQ) ---
CT ABDOMEN PELVIS WITH IV CONTRAST HISTORY: Abdominal pain. COMPARISON: None. TECHNIQUE: CT scan of the abdomen and pelvis was performed with IV contrast. This exam was performed according to our departmental dose-optimization program, which includes automated exposure control, adjustment of the mA and/or kV according to patient size and/or use of iterative reconstruction technique. FINDINGS: The lung bases are clear. No pleural or pericardial effusions. There is no hiatal hernia. The liver, gallbladder, spleen, pancreas, adrenal glands, and kidneys are normal without hydronephrosis. The pelvic organs are also normal. There is no evidence of acute diverticulitis. A moderate amount of stool seen throughout the colon. The appendix appears normal. There are multiple prominent fluid-filled loops of small bowel with wall thickening of the jejunal bowel loops suggesting enteritis. No intraperitoneal free air or abscess is seen. The bony structures are intact. No body wall hernia. The aorta and IVC are normal. IMPRESSION: Findings suggestive of enteritis.
[2018-07-31] MEDS ORDERED: KETOROLAC TROMETHAMINE INJ/PF 30 MG/1 ML SDV IV ONE (21:21)
[2018-07-31] MEDS ORDERED: METRONIDAZOLE 500 MG/NS RTU 500 MG/100 ML RTUPB IV SCH (21:30)
[2018-07-31] MEDS ORDERED: MORPHINE SULFATE 10 MG/ML INJ IV ONE (21:36)
[2018-07-31] MEDS ORDERED: ONDANSETRON HCL INJ/PF 4 MG/2 ML SDV IV ONE (21:36)
[2018-07-31] MEDS ORDERED: DICYCLOMINE HCL 20 MG TABLET PO SCH (23:00)
[2018-07-31 23:09] VITALS: BP 100/53
[2018-08-01 06:04] LABS: CHLAM PCR NOT DETECTED (NOT DETECT); GON PCR NOT DETECTED (NOT DETECT)
== END 2018-07-31 23:55 | disposition home or self-care (01) ==
LOC: ER 18:36
DX: K52.9 Noninfective gastroenteritis and colitis, unspecified (principal); R11.2 Nausea with vomiting, unspecified; M79.10 Myalgia, unspecified site; F17.210 Nicotine dependence, cigarettes, uncomplicated; Z95.1 Presence of aortocoronary bypass graft; Z87.442 Personal history of urinary calculi; I25.2 Old myocardial infarction
CPT/HCPCS: 99284; 96361; 96375; 96365; 36415; 83690; 85025; 80053; 81001; 80307; 87491; 87591; 74177; A9270; J1200; J1885; J2765; J3490; J2270; J2405; J7120

== ENCOUNTER 2018-09-09 22:26 | Observation (INO) | payer MEDICARE, MEDICAID ==
[2018-09-09] MEDS ORDERED: ASPIRIN 81 MG TABLET, CHEWABLE PO ONE (22:48)
--- NOTE | 2018-09-09 22:49 | ER Document Report ---
ED Medical Screen (RME) - General Chief Complaint: Chest Pain Stated Complaint: CHEST PAIN Time Seen by Provider: 09/09/18 22:47 Primary Care Provider: REY HERNANDEZ MD [Primary Care Provider] - Follow up as needed Notes: 42-year-old male with history of [place] and double bypass surgery comes in with the substernal chest pain radiating up into his neck. Took some nitroglycerin and 2 baby aspirin prior to arrival. Starting to feel the pressure building back up in his neck. I have treated and performed a rapid initial assessment of this patient. A comprehensive ED assessment and evaluation of the patient, analysis of test results and completion of medical decision making process will be conducted by additional ED providers. PHYSICAL EXAMINATION: GENERAL: Well-appearing, well-nourished and in no acute distress. A&Ox4. Answers questions appropriately. LUNGS: Breath sounds clear to auscultation bilaterally and equal. No wheezes rales or rhonchi. HEART: Regular rate and rhythm without murmurs, rubs, gallops. Extremities: No cyanosis, clubbing, or edema b/l. NEUROLOGICAL: Normal speech, normal gait. PSYCH: Normal mood, normal affect. TRAVEL OUTSIDE OF THE [place] IN LAST 30 DAYS: No - Related Data Allergies/Adverse Reactions: gabapentin [From Neurontin] Allergy (Verified 10/31/17 09:10) Swelling Gadolinium-Containing Contrast Medi Allergy (Verified 10/31/17 09:10) Rash, "sore joints", "brain fog" Past Medical History - Past Medical History Cardiac Medical History: Reports: Hx Coronary Artery Disease, Hx Heart Attack - [place] JANUARY 2017, Hx Hypercholesterolemia, Hx Heart Murmur Denies: Hx Hypertension Pulmonary Medical History: Denies: Hx Asthma, Hx Bronchitis, Hx COPD, Hx Pneumonia, Hx Tuberculosis Neurological Medical History: Denies: Hx Cerebrovascular Accident, Hx Seizures Renal/ Medical History: Reports: Hx Kidney Stones - mar 2010. Denies: Hx Benign Prostatic Hyperplasia, Hx End Stage Renal Disease, Hx Peritoneal Dialysis Malignancy Medical History: Denies Hx Leukemia GI Medical History: Reports: Hx Gastritis, Hx Gastroesophageal Reflux Disease, Hx Hiatal Hernia. Denies: Hx Crohn's Disease, Hx Irritable Bowel, Hx Liver Failure, Hx Pancreatitis, Hx Ulcer Musculoskeltal Medical History: Denies Hx Arthritis, Denies Hx Fibromyalgia, Denies Hx Muscular Dystrophy, Reports Hx Musculoskeletal Deformity, Reports Hx Musculoskeletal Trauma Psychiatric Medical History: Reports: Hx Attention Deficit Hyperactivity Disorder, Hx Bipolar Disorder, Hx Depression, Hx Post Traumatic Stress Disorder Denies: Hx Schizophrenia Traumatic Medical History: Reports: Hx Fractures - hand, left foot Infectious Medical History: Denies: Hx HIV Past Surgical History: Reports: Hx Coronary Artery Bypass Graft, Hx Open Heart Surgery - 01/2017. Denies: Hx Colostomy, Hx Pacemaker - Immunizations Immunizations up to date: Yes Hx Diphtheria, Pertussis, Tetanus Vaccination: Yes History of Influenza Vaccine for 12/2016 - 05/2017 Season: No Physical Exam - Vital signs Vitals: Temp Pulse Resp BP Pulse Ox 98.0 F 77 20 97/67 L 97 09/09/18 22:29 09/09/18 22:29 09/09/18 22:29 09/09/18 22:29 09/09/18 22:29 Course - Vital Signs Vital signs: Temp Pulse Resp BP Pulse Ox 98.0 F 77 20 97/67 L 97 09/09/18 22:29 09/09/18 22:29 09/09/18 22:29 09/09/18 22:29 09/09/18 22:29 Doctor's Discharge - Discharge Referrals: REY HERNANDEZ MD [Primary Care Provider] - Follow up as needed
--- NOTE | 2018-09-09 22:51 | ER Document Report ---
ED General - General Chief Complaint: Chest Pain Stated Complaint: CHEST PAIN Time Seen by Provider: 09/09/18 22:47 Notes: Patient is a 42-year-old male with CAD status post CABG x2 that presents to the emergency department for chief complaint of chest pain. The patient reports that the pain started about 1 hour prior to ED arrival. The currently rate the pain as 6 out of 10, and described as heaviness in the middle of his chest, with mild shortness of breath. They have had associated shortness of breath and mild nausea with radiation to his neck. Denies any diaphoresis, or pain worse with breathing. Their risk factors for heart disease include CAD, hypertension, hyperlipidemia, smoking, and strong family history of coronary disease. Past Medical History: Hypertension, hyperlipidemia, CAD Past Surgical History: CABG x2 Social History: Admits to smoking, denies alcohol or drug use. Family History: CAD and familial hyperlipidemia Allergies: Reviewed, see documented allergy list. REVIEW OF SYSTEMS: Other than noted above, the 12 point review of systems was reviewed with the patient and were negative, all pertinent findings are included in the HPI. PHYSICAL EXAMINATION: Vital signs reviewed, nursing noted reviewed. GENERAL: Well-appearing, well-nourished and in no acute distress. HEAD: Atraumatic, normocephalic. EYES: Eyes appear normal, extraocular movements intact, sclera anicteric, conjunctiva are normal. ENT: nares patent, oropharynx clear without exudates. Moist mucous membranes. NECK: Normal range of motion, supple without lymphadenopathy LUNGS: Breath sounds clear to auscultation bilaterally and equal. No wheezes rales or rhonchi. HEART: Regular rate and rhythm without murmurs ABDOMEN: Soft, nontender, normoactive bowel sounds. No rebound, guarding, or rigidity. No masses appreciated. EXTREMITIES: Nontender, good range of motion, no pitting or edema. NEUROLOGICAL: No focal neurological deficits. Moves all extremities spontaneously Motor and sensory grossly intact on exam. PSYCH: Normal mood, normal affect. SKIN: Warm, Dry, normal turgor, no rashes or lesions noted on exposed skin TRAVEL OUTSIDE OF THE [place] IN LAST 30 DAYS: No - Related Data Allergies/Adverse Reactions: gabapentin [From Neurontin] Allergy (Verified 10/31/17 09:10) Swelling Gadolinium-Containing Contrast Medi Allergy (Verified 10/31/17 09:10) Rash, "sore joints", "brain fog" Past Medical History - Social History Smoking Status: Current Every Day Smoker Family History: Reviewed & Not Pertinent - Past Medical History Cardiac Medical History: Reports: Hx Coronary Artery Disease, Hx Heart Attack - [place] JANUARY 2017, Hx Hypercholesterolemia, Hx Heart Murmur Denies: Hx Hypertension Pulmonary Medical History: Denies: Hx Asthma, Hx Bronchitis, Hx COPD, Hx Pneumonia, Hx Tuberculosis Neurological Medical History: Denies: Hx Cerebrovascular Accident, Hx Seizures Renal/ Medical History: Reports: Hx Kidney Stones - mar 2010. Denies: Hx Benign Prostatic Hyperplasia, Hx End Stage Renal Disease, Hx Peritoneal Dialysis Malignancy Medical History: Denies Hx Leukemia GI Medical History: Reports: Hx Gastritis, Hx Gastroesophageal Reflux Disease, Hx Hiatal Hernia. Denies: Hx Crohn's Disease, Hx Irritable Bowel, Hx Liver Failure, Hx Pancreatitis, Hx Ulcer Musculoskeletal Medical History: Denies Hx Arthritis, Denies Hx Fibromyalgia, Denies Hx Muscular Dystrophy, Reports Hx Musculoskeletal Deformity, Reports Hx Musculoskeletal Trauma Psychiatric Medical History: Reports: Hx Attention Deficit Hyperactivity Disorder, Hx Bipolar Disorder, Hx Depression, Hx Post Traumatic Stress Disorder Denies: Hx Schizophrenia Traumatic Medical History: Reports: Hx Fractures - hand, left foot Infectious Medical History: Denies: Hx HIV Past Surgical History: Reports: Hx Coronary Artery Bypass Graft, Hx Open Heart Surgery - 01/2017. Denies: Hx Colostomy, Hx Pacemaker - Immunizations Immunizations up to date: Yes Hx Diphtheria, Pertussis, Tetanus Vaccination: Yes Physical Exam - Vital signs Vitals: Temp Pulse Resp BP Pulse Ox 98.0 F 77 20 97/67 L 97 09/09/18 22:29 09/09/18 22:29 09/09/18 22:29 09/09/18 22:29 09/09/18 22:29 Course - Re-evaluation Re-evalutation: Patient seen and examined vital signs reviewed. Laboratory data and/or imaging were ordered as appropriate for the patient's presenting symptoms and complaint, with consideration of any critical or life threatening conditions that may be associated with their obtained history and exam as noted above. Patient was treated with IV nitroglycerin, and aspirin Results were reviewed when available and demonstrated negative troponin, only mild anemia, otherwise unremarkable blood work The patient was re-evaluated and was stable, chest pain-free Evaluation was most consistent with chest pain, nonspecific, could be cardiac related, given patient history, and recommend observation and serial troponin testing, discussed this with the patient's primary care physician who was agreeable to this plan of care. Results were discussed with the patient at this point after careful consideration I feel that that patient should be admitted to the hospital. This was discussed with the patient that it is in the best interest for their care to be admitted for further evaluation and management. Patient agreed with this plan of care. A call was placed to the admitting physician, Dr. Smith who graciously accepted the patient onto their service. *Note is created using voice recognition software and may contain spelling, syntax or grammatical errors. Laboratory 09/09/18 09/09/18 09/09/18 23:00 23:00 23:00 WBC 8.0 RBC 4.71 Hgb 12.5 L Hct 37.5 L MCV 80 MCH 26.4 L MCHC 33.2 RDW 14.2 H Plt Count 208 Seg Neutrophils % 52.4 Lymphocytes % 37.0 Monocytes % 6.5 Eosinophils % 3.4 Basophils % 0.7 Absolute Neutrophils 4.2 Absolute Lymphocytes 3.0 Absolute Monocytes 0.5 Absolute Eosinophils 0.3 Absolute Basophils 0.1 PT INR APTT Sodium 139.8 Potassium 4.2 Chloride 107 Carbon Dioxide 26 Anion Gap 7 BUN 11 Creatinine 1.04 Est GFR ( Amer) > 60 Est GFR (Non-Af Amer) > 60 Glucose 90 Calcium 8.9 Total Bilirubin 0.5 Direct Bilirubin 0.1 Neonat Total Bilirubin Not Reportable Neonat Direct Bilirubin Not Reportable Neonat Indirect Bili Not Reportable AST 19 ALT 24 Alkaline Phosphatase 51 Creatine Kinase Troponin I < 0.012 Total Protein 5.7 L Albumin 3.8 09/09/18 09/09/18 23:00 23:00 WBC RBC Hgb Hct MCV MCH MCHC RDW Plt Count Seg Neutrophils % Lymphocytes % Monocytes % Eosinophils % Basophils % Absolute Neutrophils Absolute Lymphocytes Absolute Monocytes Absolute Eosinophils Absolute Basophils PT 12.5 INR 0.94 APTT 29.5 Sodium Potassium Chloride Carbon Dioxide Anion Gap BUN Creatinine Est GFR ( Amer) Est GFR (Non-Af Amer) Glucose Calcium Total Bilirubin Direct Bilirubin Neonat Total Bilirubin Neonat Direct Bilirubin Neonat Indirect Bili AST ALT Alkaline Phosphatase Creatine Kinase 185 H Troponin I Total Protein Albumin Chest X-Ray 09/09/18 22:47 IMPRESSION: No acute findings. No focal lung consolidation. - Vital Signs Vital signs: Temp Pulse Resp BP Pulse Ox 98.0 F 77 14 97/59 L 99 09/09/18 22:29 09/09/18 22:29 09/10/18 01:29 09/10/18 01:29 09/10/18 01:29 - Laboratory Result Diagrams: 09/09/18 23:00 09/09/18 23:00 Laboratory results interpreted by me: 09/09/18 09/09/18 09/09/18 23:00 23:00 23:00 Hgb 12.5 L Hct 37.5 L MCH 26.4 L RDW 14.2 H Creatine Kinase 185 H Total Protein 5.7 L - EKG Interpretation by Me Additional EKG results interpreted by me: EKG demonstrates sinus rhythm with a ventricular rate of 64 bpm, normal axis, normal intervals, only slight T wave inversion noted in lead aVL, no ST elevation or ST depressions noted, this is compared with prior EKG from 01/16/2018, and actually appears to be improved today. Critical Care Note - Critical Care Note Total time excluding time spent on procedures (mins): 35 Comments: Critical care time 35 minutes exclusive from separate billable procedures for a patient requiring complex medical decision making, and high potential for clinical deterioration. In a patient with chest pain, possibly angina, responding to IV nitroglycerin infusion, and requiring close monitoring and bl ood pressure monitoring. Time spent obtaining history from patient or surrogate, discussions with consultants, development of treatment plan with patient or surrogate, evaluation of patient's response to treatment, examination of patient, ordering and performing treatments and interventions, ordering and review of laboratory studies, re-evaluation of patient's condition, ordering and review of radiographic studies and review of old charts Discharge - Discharge Clinical Impression: Chest pain Qualifiers: Chest pain type: unspecified Qualified Code(s): R07.9 - Chest pain, unspecified Condition: Stable Disposition: ADMITTED INPATIENT Admitting Provider: [facility] Admitted: [facility]
[2018-09-09] MEDS ORDERED: NORMAL SALINE 500 ML IV ONE (23:04)
[2018-09-09] MEDS ORDERED: NITROGLYCERIN/D5W 50 MG/250 ML RTUINJ IV PRN (23:04)
[2018-09-09 23:13] LABS: ABSOLUTE BASOPHILS # (AUTO) 0.1 10^3/uL (0.0-0.2); ABSOLUTE EOSINOPHILS # (AUTO) 0.3 10^3/uL (0.0-0.6); ABSOLUTE MONOCYTES (AUTO) 0.5 10^3/uL (0.1-1.4); ABSOLUTE NEUT (AUTO) 4.2 10^3/uL (1.7-8.2); BASOPHILS % (AUTO) 0.7 % (0-2); EOSINOPHILS % (AUTO) 3.4 % (0-6); HEMATOCRIT 37.5 % (37.9-51.0); HEMOGLOBIN 12.5 g/dL (13.5-17.0); MEAN CORPUSCULAR HEMOGLOBIN 26.4 pg (27.0-33.4); MEAN CORPUSCULAR HGB CONC 33.2 g/dL (32.0-36.0); MEAN CORPUSCULAR VOLUME 80 fl (80-97); MONOCYTES % (AUTO) 6.5 % (3-13); PLATELET COUNT 208 10^3/uL (150-450); RED BLOOD COUNT 4.71 10^6/uL (4.35-5.55); RED CELL DISTRIBUTION WIDTH 14.2 % (11.5-14.0); SEGMENTED NEUTROPHILS % (AUTO) 52.4 % (42-78); TOTAL CELLS COUNTED % (AUTO) 100 %
--- NOTE | 2018-09-09 23:14 | RADIOLOGY REPORT (SQ) ---
EXAM DESCRIPTION: XR CHEST 1 VIEW COMPLETED DATE/TME: 09/09/2018 22:47 CLINICAL HISTORY: 42 years, Male, CP Comparison: None FINDINGS: No focal lung consolidation. No pleural effusion. No pneumothorax. Cardiac and mediastinal silhouette is unremarkable. Patient has had a median sternotomy. No acute osseous abnormality. Soft tissues are unremarkable. IMPRESSION: No acute findings. No focal lung consolidation.
[2018-09-09 23:32] LABS: ALANINE AMINOTRANSFERASE 24 U/L (21-72); ALBUMIN 3.8 g/dL (3.5-5.0); ALKALINE PHOSPHATASE 51 U/L (38-126); ANION GAP 7 (5-19); ASPARTATE AMINO TRANSFERASE 19 U/L (17-59); BILIRUBIN,DIRECT 0.1 mg/dL (0.0-0.4); BILIRUBIN,TOTAL 0.5 mg/dL (0.2-1.3); BLOOD UREA NITROGEN 11 mg/dL (7-20); CALCIUM 8.9 mg/dL (8.4-10.2); CARBON DIOXIDE 26 mmol/L (22-30); CHLORIDE 107 mmol/L (98-107); GLUCOSE 90 mg/dL (75-110); POTASSIUM 4.2 mmol/L (3.6-5.0); SODIUM 139.8 mmol/L (137-145); TOTAL PROTEIN 5.7 g/dL (6.3-8.2)
[2018-09-10 00:52] LABS: INTERNATIONAL RATION (INR) 0.94; PROTHROMBIN TIME 12.5 SEC (11.4-15.4)
[2018-09-10 00:53] LABS: PARTIAL THROMBOPLASTIN TIME 29.5 SEC (23.5-35.8)
[2018-09-10] MEDS ORDERED: NORMAL SALINE 500 ML IV ONE (02:09)
[2018-09-10] MEDS ORDERED: ASPIRIN 81 MG TABLET, ENT COATED PO SCH (10:00)
[2018-09-10] MEDS ORDERED: OXYCODONE HCL IR 5 MG TABLET PO PRN ×2 (15:37→18:57)
[2018-09-10] MEDS ORDERED: EVOLOCUMAB 140 MG SQ SCH (18:15)
[2018-09-10] MEDS ORDERED: COLCHICINE 0.6 MG TABLET PO SCH (18:15)
[2018-09-10] MEDS ORDERED: (PENDING PHARMACY ID) (Linaclotide 145 MCG) PO SCH (18:15)
[2018-09-10] MEDS ORDERED: (PENDING PHARMACY ID) (Dextroamphetamine/Amphetamine [Adderall 20 Mg Tablet] 1 TAB) PO SCH (18:15)
[2018-09-10] MEDS ORDERED: ASPIRIN 81 MG TABLET, CHEWABLE PO SCH (18:15)
[2018-09-10] MEDS ORDERED: BUSPIRONE HCL 10 MG TABLET PO SCH (18:15)
--- NOTE | 2018-09-10 18:28 | PDOC H&P ---
History of Present Illness Admission Date/PCP: 09/10/18 00:32 REY HERNANDEZ MD History of Present Illness: TRINA CORBETT is a 42 year old male,He has a history of coronary artery disease status post coronary artery bypass grafting,He came to emergency room for evaluation of chest pain.Patient was started on nitro infusion Past Medical History Cardiac Medical History: Reports: Coronary Artery Disease, Myocardial Infarction - [place] JANUARY 2017, Hyperlipidema, Heart Murmur Endocrine Medical History: Reports: Diabetes Mellitus Type 2 GI Medical History: Reports: Gastroesophageal Reflux Disease, Hiatal Hernia Psychiatric Medical History: Reports: Attention Deficit Hyperactivity Disorder, Bipolar Disorder, Depression, Post Traumatic Stress Disorder Infectious Medical History: Denies: HIV Past Surgical History Past Surgical History: Reports: Coronary Artery Bypass Graft, Vascular Surgery - UMBILICAL HERNIA REPAIR Social History Smoking Status: Current Every Day Smoker Frequency of Alcohol Use: Rare Hx Recreational Drug Use: Yes Drugs: Marijuana Hx Prescription Drug Abuse: No Family History Family History: Reviewed & Not Pertinent Parental Family History Reviewed: Yes Children Family History Reviewed: Yes Sibling(s) Family History Reviewed.: Yes Medication/Allergy Home Medications: Atorvastatin Calcium [Lipitor 40 mg Tablet] 40 mg PO QHS 06/20/17 Colchicine [Colchicine 0.6 mg Tablet] 0.6 mg PO BID 06/20/17 Aspirin 81 mg PO DAILY 10/24/17 Evolocumab [Repatha Syringe] 140 mg [id number] 01/17/18 Fenofibrate Nanocrystallized [Tricor 48 mg Tablet] 48 mg PO DAILY 01/17/18 Trazodone HCl [Desyrel 50 mg Tablet] 50 mg PO QHS 01/17/18 Buspirone HCl [Buspar 10 mg Tablet] 10 mg PO BID 09/10/18 Dextroamphetamine/Amphetamine [Adderall 20 mg Tablet] 1 tab PO TID 09/10/18 Linaclotide [Linzess 145 Mcg Capsule] 145 mcg PO DAILY 09/10/18 Oxycodone HCl 15 mg PO Q6HP PRN 09/10/18 Allergies/Adverse Reactions: gabapentin [From Neurontin] Allergy (Verified 10/31/17 09:10) Swelling Gadolinium-Containing Contrast Medi Allergy (Verified 10/31/17 09:10) Rash, "sore joints", "brain fog" Review of Systems Constitutional: ABSENT: chills, fever(s), headache(s), weight gain, weight loss Eyes: ABSENT: visual disturbances Ears: ABSENT: hearing changes Cardiovascular: PRESENT: chest pain. ABSENT: dyspnea on exertion, edema, orthropnea, palpitations Respiratory: ABSENT: cough, hemoptysis Gastrointestinal: ABSENT: abdominal pain, constipation, diarrhea, hematemesis, hematochezia, nausea, vomiting Genitourinary: ABSENT: dysuria, hematuria Musculoskeletal: ABSENT: joint swelling Integumentary: ABSENT: rash, wounds Neurological: ABSENT: abnormal gait, abnormal speech, confusion, dizziness, f ocal weakness, syncope Psychiatric: ABSENT: anxiety, depression, homidical ideation, suicidal ideation Endocrine: ABSENT: cold intolerance, heat intolerance, menstrual abnormalities, polydipsia, polyuria Hematologic/Lymphatic: ABSENT: easy bleeding, easy bruising, lymphadenopathy Physical Exam Vital Signs: Temp Pulse Resp BP Pulse Ox 98.5 F 67 16 100/64 97 09/10/18 14:48 09/10/18 14:48 09/10/18 14:48 09/10/18 14:48 09/10/18 14:48 Intake & Output 09/09/18 09/10/18 09/11/18 06:59 06:59 06:59 Intake Total 1012 840 Output Total 300 600 Balance 712 240 Weight 82 kg General appearance: PRESENT: no acute distress, well-developed, well-nourished Head exam: PRESENT: atraumatic, normocephalic Eye exam: PRESENT: conjunctiva pink, EOMI, PERRLA Ear exam: PRESENT: normal external ear exam Mouth exam: PRESENT: moist, tongue midline Neck exam: PRESENT: full ROM Respiratory exam: PRESENT: clear to auscultation zack Cardiovascular exam: PRESENT: RRR, +S1, +S2 Pulses: PRESENT: normal dorsalis pedis pul, +2 pedal pulses bilateral Vascular exam: PRESENT: normal capillary refill GI/Abdominal exam: PRESENT: normal bowel sounds, soft Rectal exam: PRESENT: deferred Neurological exam: PRESENT: alert, awake, oriented to person, oriented to place, oriented to time, oriented to situation, CN II-XII grossly intact. ABSENT: motor sensory deficit Psychiatric exam: PRESENT: appropriate affect, normal mood Skin exam: PRESENT: dry, intact, warm Results Laboratory Results: 09/09/18 23:00 09/09/18 23:00 09/09/18 09/09/18 23:00 23:00 WBC 8.0 RBC 4.71 Hgb 12.5 L Hct 37.5 L MCV 80 MCH 26.4 L MCHC 33.2 RDW 14.2 H Plt Count 208 Seg Neutrophils % 52.4 Lymphocytes % 37.0 Monocytes % 6.5 Eosinophils % 3.4 Basophils % 0.7 Absolute Neutrophils 4.2 Absolute Lymphocytes 3.0 Absolute Monocytes 0.5 Absolute Eosinophils 0.3 Absolute Basophils 0.1 Sodium 139.8 Potassium 4.2 Chloride 107 Carbon Dioxide 26 Anion Gap 7 BUN 11 Creatinine 1.04 Est GFR ( Amer) > 60 Est GFR (Non-Af Amer) > 60 Glucose 90 Calcium 8.9 Total Bilirubin 0.5 AST 19 ALT 24 Alkaline Phosphatase 51 Total Protein 5.7 L Albumin 3.8 09/09/18 09/09/18 09/09/18 23:00 23:00 23:00 Creatine Kinase 185 H CK-MB (CK-2) 1.25 Troponin I < 0.012 Cancelled 09/10/18 09/10/18 09/10/18 05:11 10:58 16:35 Creatine Kinase CK-MB (CK-2) Troponin I < 0.012 < 0.012 < 0.012 Impressions: Chest X-Ray 09/09/18 22:47 IMPRESSION: No acute findings. No focal lung consolidation. Assessment & Plan - Diagnosis (1) Chest pain Qualifiers: Chest pain type: unspecified Qualified Code(s): R07.9 - Chest pain, unspecified Is this a current diagnosis for this admission?: Yes Plan: Patient is admitted for management (2) Coronary artery disease Qualifiers: Coronary Disease-Associated Artery/Lesion type: unspecified vessel or lesion type [place] vs. transplanted heart: [place] heart Associated angina: angina presence unspecified Qualified Code(s): I25.10 - Atherosclerotic heart disease of [place] coronary artery without angina pectoris Is this a current diagnosis for this admission?: Yes
[2018-09-10 20:40] VITALS: BP 96/55
--- NOTE | 2018-09-10 21:19 | Left Against Medical Advice ---
Against Medical Advice Admission Date/Time: 09/10/18 00:32 Primary Care Provider: REY HERNANDEZ MD Date of Patient Emigration: 09/10/18 - Diagnosis: (1) Chest pain Is this a current diagnosis for this admission?: Yes (2) Coronary artery disease Is this a current diagnosis for this admission?: Yes - Summary: Summary: Please see Admission and Progress Notes as well. TRINA CORBETT is a 42 M, who LEFT AGAINST MEDICAL ADVICE. The Patient was admitted on 09/10/18 00:32.Patient with history of coronary artery disease status post coronary artery bypass grafting presented with chest pain suspicious, 3 sets of cardiac enzymes negative for acute AK. Patient left AMA today
[2018-09-10] MEDS ORDERED: TRAZODONE HCL 50 MG TABLET PO SCH (22:00)
[2018-09-10] MEDS ORDERED: ATORVASTATIN CALCIUM 80 MG TABLET PO SCH (22:00)
[2018-09-10] MEDS ORDERED: ATORVASTATIN CALCIUM 40 MG TABLET PO SCH (22:00)
--- NOTE | 2018-09-11 00:22 | EKG REPORT ---
SEVERITY:- NORMAL ECG - SINUS RHYTHM : Confirmed by: Desi Xavier 11-Sep-2018 00:21:45
[2018-09-11] MEDS ORDERED: FENOFIBRATE NANOCRYSTALLIZED 48 MG TABLET PO SCH (10:00)
== END 2018-09-10 21:28 | disposition left against medical advice (07) ==
LOC: ER 22:26 → INTOOBSV 09-10 00:32 → EH 09-10 00:32 → 3N 09-10 02:29
PROVIDERS: ADMIT Internal Medicine; ATTEND Internal Medicine
DX: R07.9 Chest pain, unspecified (principal); Z95.1 Presence of aortocoronary bypass graft; I25.10 Atherosclerotic heart disease of native coronary artery without angina pectoris; I25.2 Old myocardial infarction; E78.5 Hyperlipidemia, unspecified; E11.9 Type 2 diabetes mellitus without complications; K21.9 Gastro-esophageal reflux disease without esophagitis; I10 Essential (primary) hypertension; K44.9 Diaphragmatic hernia without obstruction or gangrene; F90.1 Attention-deficit hyperactivity disorder, predominantly hyperactive type; F31.9 Bipolar disorder, unspecified; F43.10 Post-traumatic stress disorder, unspecified; F17.200 Nicotine dependence, unspecified, uncomplicated; R06.02 Shortness of breath; R11.0 Nausea; Z79.82 Long term (current) use of aspirin; Z88.6 Allergy status to analgesic agent; Z91.041 Radiographic dye allergy status; Z83.438 Family history of other disorder of lipoprotein metabolism and other lipidemia
CPT/HCPCS: 93005; 99285; 96365; 36415 ×2; 82553; 82550; 85025; 85610; 85730; 80053; 84484 ×2; 83036; 71045; 93010; G0378 ×2; A9270 ×5; J3490 ×2; J7040 ×2

== ENCOUNTER 2018-10-22 09:38 | Emergency (ER) | payer MEDICARE, MEDICAID ==
[2018-10-22 09:44] VITALS: BP 106/63
--- NOTE | 2018-10-22 10:03 | ER Document Report ---
HPI - HPI Time Seen by Provider: 10/22/18 09:59 Pain Level: 2 Notes: Patient is a 42-year-old male presenting to the emergency department chief complaint of right ankle and foot pain. Patient reports several days ago he rolled his ankle when stepping off of a curb. He reports he felt a pop. Patient is able to ambulate but reports he has significant pain. Most of the pain is located to the lateral aspect of the foot and ankle. - REPRODUCTIVE Reproductive: DENIES: : Past Medical History - General Information source: Patient - Social History Smoking Status: Current Every Day Smoker Frequency of alcohol use: None Drug Abuse: None Family History: Reviewed & Not Pertinent - Past Medical History Cardiac Medical History: Reports: Hx Coronary Artery Disease, Hx Heart Attack - [place] JANUARY 2017, Hx Hypercholesterolemia, Hx Heart Murmur Denies: Hx Hypertension Pulmonary Medical History: Denies: Hx Asthma, Hx Bronchitis, Hx COPD, Hx Pneumonia, Hx Tuberculosis Neurological Medical History: Denies: Hx Cerebrovascular Accident, Hx Seizures Endocrine Medical History: Reports: Hx Diabetes Mellitus Type 2 Renal/ Medical History: Reports: Hx Kidney Stones - mar 2010. Denies: Hx Benign Prostatic Hyperplasia, Hx End Stage Renal Disease, Hx Peritoneal Dialysis Malignancy Medical History: Denies Hx Leukemia GI Medical History: Reports: Hx Gastritis, Hx Gastroesophageal Reflux Disease, Hx Hiatal Hernia. Denies: Hx Crohn's Disease, Hx Irritable Bowel, Hx Liver Failure, Hx Pancreatitis, Hx Ulcer Musculoskeletal Medical History: Denies Hx Arthritis, Denies Hx Fibromyalgia, Denies Hx Muscular Dystrophy, Reports Hx Musculoskeletal Deformity, Reports Hx Musculoskeletal Trauma Psychiatric Medical History: Reports: Hx Attention Deficit Hyperactivity Disorder, Hx Bipolar Disorder, Hx Depression, Hx Post Traumatic Stress Disorder Denies: Hx Schizophrenia Traumatic Medical History: Reports: Hx Fractures - hand, left foot Infectious Medical History: Denies: Hx HIV Past Surgical History: Reports: Hx Coronary Artery Bypass Graft, Hx Open Heart Surgery - 01/2017, Hx Vascular Surgery - UMBILICAL HERNIA REPAIR. Denies: Hx Colostomy, Hx Pacemaker - Immunizations Immunizations up to date: Yes Hx Diphtheria, Pertussis, Tetanus Vaccination: Yes Vertical Provider Document - CONSTITUTIONAL Notes: PHYSICAL EXAMINATION: GENERAL: Well-appearing, well-nourished and in no acute distress. HEAD: Atraumatic, normocephalic. EYES: Pupils equal round extraocular movements intact, conjunctiva are normal. ENT: Nares patent NECK: Normal range of motion LUNGS: No respiratory distress Musculoskeletal: Normal range of motion, swelling and ecchymosis noted to lateral aspect of right foot, strong dorsalis pedis and posterior tibialis pulse. Cap refill less than 3 seconds, normal motor and sensation distal to injury. NEUROLOGICAL: Normal speech, normal gait. PSYCH: Normal mood, normal affect. SKIN: Warm, Dry, normal turgor, no rashes or lesions noted. - INFECTION CONTROL TRAVEL OUTSIDE OF THE [place] IN LAST 30 DAYS: No Course - Re-evaluation Re-evalutation: 10/22/18 10:42 X-rays of the foot and ankle negative for any acute fracture dislocation. Patient will be placed in ankle stirrup, Luisito wrap and offered crutches. Patient will be discharged home in stable condition. - Vital Signs Vital signs: Temp Pulse Resp BP Pulse Ox 98.2 F 82 16 106/63 98 10/22/18 09:43 10/22/18 09:43 10/22/18 09:43 10/22/18 09:43 10/22/18 09:43 Procedures - Immobilization Right foot/ankle Pre-Proc Neuro Vasc Exam: Normal Immobilizer type: Luisito wrap, Ankle stirrup Performed by: PCT Post-Proc Neuro Vasc Exam: Normal Alignment checked and good: Yes Discharge - Discharge Clinical Impression: Right ankle sprain Qualifiers: Encounter type: initial encounter Involved ligament of ankle: unspecified ligament Qualified Code(s): S93.401A - Sprain of unspecified ligament of right ankle, initial encounter Condition: Stable Disposition: HOME, SELF-CARE Additional Instructions: SPRAINED ANKLE: Your sprained ankle results from stretching or tearing of the ligaments which support the ankle. This usually results from twisting the foot inward and under. The ligaments will require time and protection in order to heal p emily. Many ankle sprains are quite disabling, and should be taken seriously. The usual treatment for an ankle sprain is cold packs; protection with tape, splints, or wraps; elevation; and staying off the ankle for at least a day. As the ankle improves, you can walk IF it's not painful to bear weight. Sports are best postponed until healing is complete. More serious sprains usually require strengthening exercises after early healing. Your physician has assessed the seriousness of the ligament injury to your ankle. However, the treatment may change, depending on how your ankle progresses. If further exams were recommended, it is important that you follow through. Call the doctor if your foot becomes numb, painful, or severely swollen. ANKLE STIRRUP SPLINT: You are to use an ankle brace called a stirrup splint. This type of brace allows you to place greater stresses on the ankle without risk of re-injury, and is often used for more severe ankle injuries such as avulsion fractures and ligament ruptures. The splint can be worn over a sock or tape. For proper support, wear the splint with a shoe over it. It's important that the splint fit properly. Adjust the heel tension, if needed. If your splint has air bladders, peel back the bottom of each air bladder, then move the Velcro attachment of the heel strap up or down. Air bladder pressure can be adjusted by pulling up the valve at the top, threading the air tube down into the main bladder, then blowing air into the bladder or squeezing it out. The two sides of the stirrup can be moved forward or back on your ankle by changing the attachment of the main straps. If you are unable to use the ankle comfortably in the splint, return for re-evaluation. USE OF CRUTCHES: The doctor has recommended that you not bear weight at this time. You will need to use crutches. Adjust the crutches so the tops come to about two inches under the armpit while you are standing upright. Use your hands -- not your armpits -- to support your weight. To get into a chair, support yourself with one crutch on the injured side. Hold the chair with the other hand, then lower yourself while putting all your weight on the good leg. Going up stairs is `good leg up, step up, then bring up crutches and bad leg.' Down stairs is `bad leg and crutches down, then bring good leg down.' If you develop numbness or swelling in an arm or hand, you are using the crutches incorrectly. Return if you are having any problems with the crutches. ICE & ELEVATION: Apply ice packs frequently against the painful area. Many different schedules are recommended, such as "20 minutes on, 20 minutes off" or "one hour ice, two hours rest." If you need to work, you may need to go longer between ice treatments. You should plan to have the area ice packed AT LEAST one-fourth of the time. The ice should be applied over the wrap, tape, or splint, or over a layer of cloth -- not directly against the skin. Some ice bags have a built-in cloth and can be put directly on the skin. Your injured part should be elevated as much as possible over the next 48 hours. Try to keep the injury above the level of the heart. Avoid use of the injured area. Elevation and rest will decrease the swelling. USE OF CGXY-AVX-VMDFSOS IBUPROFEN: Ibuprofen (Advil, Nuprin, Medipren, Motrin IB) is a medication for fever and pain control. In addition, it has anti- inflammatory effects which may be beneficial, especially in the treatment of injuries. It's best to take ibuprofen with food. Persons with ulcer disease or allergy to aspirin should notify their physician of this before taking ibuprofen. Ibuprofen can be given every four to six hours, for a total of four doses daily. Age Pain or fever dose Antiinflammatory dose 6-8 yr 200 mg (1 tab) 200 mg (1 tab) 9-11 yr 200 mg (1 tab) 200-400 mg (1-2 tab) 11-14 yr 200-400 mg (1-2 tab) 400 mg (2 tab) 15-adult 400 mg (2 tab) 600 mg (3 tab) FOLLOW-UP CARE: If you have been referred to a physician for follow-up care, call the physicians office for an appointment as you were instructed or within the next two days. If you experience worsening or a significant change in your symptoms, notify the physician immediately or return to the Emergency Department at any time for re-evaluation. The x-rays of your foot and ankle were negative for any fracture dislocation. It is likely that you have sprained one of the ligaments in your ankle. Please wear the ankle stirrup splint with Luisito wrap for comfort and compression. Use crutches to try to stay off of the ankle for at least 1 week. If not improving over the next 2 to 3 weeks follow-up with orthopedics. Referrals: REY HERNANDEZ MD [Primary Care Provider] - Follow up as needed JEFF CLEMENTS MD [ACTIVE STAFF] - Follow up as needed
--- NOTE | 2018-10-22 10:22 | RADIOLOGY REPORT (SQ) ---
EXAM DESCRIPTION: FOOT RIGHT COMPLETE COMPLETED DATE/TIME: 10/22/2018 10:07 am REASON FOR STUDY: swelling and bruising COMPARISON: None. NUMBER OF VIEWS: Three views. TECHNIQUE: AP, lateral and oblique radiographic images acquired of the right foot. LIMITATIONS: None. FINDINGS: MINERALIZATION: Normal. BONES: No acute fracture or dislocation. No worrisome bone lesions. JOINTS: No effusions. SOFT TISSUES: No soft tissue swelling. No foreign body. OTHER: No other significant finding. IMPRESSION: NEGATIVE STUDY OF THE RIGHT FOOT. NO RADIOGRAPHIC EVIDENCE OF ACUTE INJURY. TECHNICAL DOCUMENTATION: JOB ID: [id number] [employer]- All Rights Reserved Reading location - IP/workstation name: [email or web address]
--- NOTE | 2018-10-22 10:23 | RADIOLOGY REPORT (SQ) ---
EXAM DESCRIPTION: ANKLE RIGHT COMPLETE COMPLETED DATE/TIME: 10/22/2018 10:07 am REASON FOR STUDY: swelling and bruising COMPARISON: None. NUMBER OF VIEWS: Three views. TECHNIQUE: AP, lateral, and oblique radiographic images acquired of the right ankle. LIMITATIONS: None. FINDINGS: MINERALIZATION: Normal. BONES: No acute fracture or dislocation. No worrisome bone lesions. JOINTS: No effusions. SOFT TISSUES: No soft tissue swelling. No foreign body. OTHER: No other significant finding. IMPRESSION: NEGATIVE STUDY OF THE RIGHT ANKLE. NO RADIOGRAPHIC EVIDENCE OF ACUTE INJURY. TECHNICAL DOCUMENTATION: JOB ID: [id number] [employer] All Rights Reserved Reading location - IP/workstation name: [email or web address]
== END 2018-10-22 10:43 | disposition home or self-care (01) ==
LOC: ER 09:38
PROC: 2W3QX1Z Immobilization of Right Lower Leg using Splint (ICD-10-PCS; principal; 2018-10-22)
DX: S93.401A Sprain of unspecified ligament of right ankle, initial encounter (principal); M25.571 Pain in right ankle and joints of right foot; M79.671 Pain in right foot; X50.1XXA Overexertion from prolonged static or awkward postures, initial encounter; F17.200 Nicotine dependence, unspecified, uncomplicated; I25.10 Atherosclerotic heart disease of native coronary artery without angina pectoris; I25.2 Old myocardial infarction; E11.9 Type 2 diabetes mellitus without complications
CPT/HCPCS: 73610; 73630; 29515; L1902; 99283

== ENCOUNTER 2019-03-23 20:03 | Emergency (ER) | payer MEDICARE, MEDICAID ==
[2019-03-23] MEDS ORDERED: KETOROLAC TROMETHAMINE 60 MG/2 ML SDV IM ONE (20:39)
[2019-03-23] MEDS ORDERED: CYCLOBENZAPRINE HCL 10 MG TABLET PO ONE (20:39)
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
[2019-03-23 23:38] VITALS: BP 129/90
--- NOTE | 2019-03-24 17:34 | EKG REPORT ---
SEVERITY:- NORMAL ECG - SINUS RHYTHM : Confirmed by: Desi Xavier 24-Mar-2019 17:33:48
== END 2019-03-23 23:40 | disposition home or self-care (01) ==
LOC: ER 20:03
DX: S90.01XA Contusion of right ankle, initial encounter (principal); M54.6 Pain in thoracic spine; R07.9 Chest pain, unspecified; M54.9 Dorsalgia, unspecified; M54.2 Cervicalgia; M25.519 Pain in unspecified shoulder; M25.579 Pain in unspecified ankle and joints of unspecified foot; M79.643 Pain in unspecified hand; V87.7XXA Person injured in collision between other specified motor vehicles (traffic), initial encounter; F17.210 Nicotine dependence, cigarettes, uncomplicated; I25.10 Atherosclerotic heart disease of native coronary artery without angina pectoris; E11.9 Type 2 diabetes mellitus without complications; I25.2 Old myocardial infarction
CPT/HCPCS: 93005; 99283; 96372; 72050; 72070; 93010; A9270; J1885

== ENCOUNTER 2019-04-23 13:59 | Emergency (ER) | payer MEDICARE, MEDICAID ==
--- NOTE | 2019-04-23 14:37 | ER Document Report ---
ED Medical Screen (RME) - General Chief Complaint: Flank Pain Stated Complaint: LEFT FLANK PAIN,DISCOLORED URINE Time Seen by Provider: 04/23/19 14:32 Primary Care Provider: REY HERNANDEZ MD [Primary Care Provider] - Follow up as needed Mode of Arrival: Ambulatory Information source: Patient Notes: This 43-year-old male presents emergency department with complaints of difficulty voiding hesitancy 04/19, some testicular tenderness and left flank pain started 04/21. Denies fever vomiting diarrhea. Left flank tender to palpate I have greeted and performed a rapid initial assessment of this patient. A comprehensive ED assessment and evaluation of the patient, analysis of test results and completion of the medical decision making process will be conducted by additional ED providers. TRAVEL OUTSIDE OF THE [place] IN LAST 30 DAYS: No - Related Data Allergies/Adverse Reactions: gabapentin [From Neurontin] Allergy (Verified 03/23/19 20:25) Swelling Gadolinium-Containing Contrast Medi Allergy (Verified 03/23/19 20:25) Rash, "sore joints", "brain fog" Home Medications: percocet 15mg four times a day. atrovastatin, buspar, trazadone Past Medical History - Social History Frequency of alcohol use: None Drug Abuse: Marijuana - Past Medical History Cardiac Medical History: Reports: Hx Coronary Artery Disease, Hx Heart Attack - [place] JANUARY 2017, Hx Hypercholesterolemia, Hx Heart Murmur Denies: Hx Hypertension Pulmonary Medical History: Denies: Hx Asthma, Hx Bronchitis, Hx COPD, Hx Pneumonia, Hx Tuberculosis Neurological Medical History: Denies: Hx Cerebrovascular Accident, Hx Seizures Endocrine Medical History: Reports: Hx Diabetes Mellitus Type 2 Renal/ Medical History: Reports: Hx Kidney Stones - mar 2010. Denies: Hx Benign Prostatic Hyperplasia, Hx End Stage Renal Disease, Hx Peritoneal Dialysis Malignancy Medical History: Denies Hx Leukemia GI Medical History: Reports: Hx Gastritis, Hx Gastroesophageal Reflux Disease, Hx Hiatal Hernia. Denies: Hx Crohn's Disease, Hx Irritable Bowel, Hx Liver Failure, Hx Pancreatitis, Hx Ulcer Musculoskeltal Medical History: Reports Hx Arthritis, Denies Hx Fibromyalgia, Denies Hx Muscular Dystrophy, Reports Hx Musculoskeletal Deformity, Reports Hx Musculoskeletal Trauma Psychiatric Medical History: Reports: Hx Attention Deficit Hyperactivity Disorder, Hx Bipolar Disorder, Hx Depression, Hx Post Traumatic Stress Disorder Denies: Hx Schizophrenia Traumatic Medical History: Reports: Hx Fractures - hand, left foot Infectious Medical History: Denies: Hx HIV Past Surgical History: Reports: Hx Coronary Artery Bypass Graft, Hx Open Heart Surgery - 01/2017, Hx Umbilical Hernia, Hx Vascular Surgery - UMBILICAL HERNIA REPAIR. Denies: Hx Colostomy, Hx Pacemaker - Immunizations Immunizations up to date: Yes Hx Diphtheria, Pertussis, Tetanus Vaccination: Yes Physical Exam - Vital signs Vitals: Temp Pulse Resp BP Pulse Ox 98.8 F 102 H 16 112/74 97 04/23/19 14:28 04/23/19 14:28 04/23/19 14:28 04/23/19 14:28 04/23/19 14:28 Course - Vital Signs Vital signs: Temp Pulse Resp BP Pulse Ox 98.8 F 102 H 16 112/74 97 04/23/19 14:28 04/23/19 14:28 04/23/19 14:28 04/23/19 14:28 04/23/19 14:28 Doctor's Discharge - Discharge Referrals: REY HERNANDEZ MD [Primary Care Provider] - Follow up as needed
--- NOTE | 2019-04-23 16:07 | RADIOLOGY REPORT (SQ) ---
EXAM DESCRIPTION: U/S RETROPERITON LTD COMPLETED DATE/TIME: 04/23/2019 3:56 pm REASON FOR STUDY: left flank pain, diff void COMPARISON: None. TECHNIQUE: Dynamic and static grayscale images acquired of the kidneys and bladder and recorded on P ACS. Additional selected color Doppler and spectral images recorded. LIMITATIONS: None. FINDINGS: RIGHT KIDNEY: Normal size. Normal echogenicity. No solid or suspicious masses. No h ydronephrosis. No calcifications. LEFT KIDNEY: Normal size. Normal echogenicity. No solid or suspicious masses. No hydronephrosi s. No calcifications. BLADDER: No masses. OTHER FINDINGS: No other significant finding. IMPRESSION: NORMAL RENAL AND BLADDER ULTRASOUND. TECHNICAL DOCUMENTATION: JOB ID: [id number] 2010 [employer]- All Rights Reserved Reading location - IP/workstation name: [email or web address]
--- NOTE | 2019-04-23 16:21 | RADIOLOGY REPORT (SQ) ---
EXAM DESCRIPTION: U/S SCROTUM W/DOPPLER COMPLETED DATE/TIME: 04/23/2019 4:08 pm REASON FOR STUDY: testicular tenderness COMPARISON: None. TECHNIQUE: Static and realtime thomason scale imaging of the scrotum and testes. Selected color Doppler and spectral images recorded to document blood flow. LIMITATIONS: None. FINDINGS: RIGHT: TESTICLE: Normal size. Normal echotexture. Normal blood flow. No mass. EPIDIDYMIS: Normal. HYDROCELE OR VARICOCELE: No. HERNIA OR EXTRA-TESTICULAR MASS: No. OTHER: No other significant finding. LEFT: TESTICLE: Normal size. Normal echotexture. Normal blood flow. No mass. EPIDIDYMIS: Heterogeneous. Small cyst. HYDROCELE OR VARICOCELE: Small hydrocele. HERNIA OR EXTRA-TESTICULAR MASS: No. OTHER: No other significant finding. IMPRESSION: No torsion or testicular mass. Epididymitis on the left. Small left hydrocele. TECHNICAL DOCUMENTATION: JOB ID: [id number] 2010 [employer]- All Rights Reserved Reading location - IP/workstation name: [email or web address]
[2019-04-23 17:20] LABS: ABSOLUTE EOSINOPHILS # (AUTO) 0.1 10^3/uL (0.0-0.6); ABSOLUTE LYMPHOCYTES (AUTO) 2.1 10^3/uL (0.5-4.7); ABSOLUTE MONOCYTES (AUTO) 0.6 10^3/uL (0.1-1.4); ABSOLUTE NEUT (AUTO) 8.9 10^3/uL (1.7-8.2); BASOPHILS % (AUTO) 0.3 % (0-2); EOSINOPHILS % (AUTO) 1.2 % (0-6); HEMATOCRIT 40.3 % (37.9-51.0); HEMOGLOBIN 13.5 g/dL (13.5-17.0); MEAN CORPUSCULAR HEMOGLOBIN 26.7 pg (27.0-33.4); MEAN CORPUSCULAR HGB CONC 33.5 g/dL (32.0-36.0); MEAN CORPUSCULAR VOLUME 80 fl (80-97); MONOCYTES % (AUTO) 4.7 % (3-13); PLATELET COUNT 245 10^3/uL (150-450); RED BLOOD COUNT 5.05 10^6/uL (4.35-5.55); RED CELL DISTRIBUTION WIDTH 14.4 % (11.5-14.0); SEGMENTED NEUTROPHILS % (AUTO) 75.8 % (42-78); TOTAL CELLS COUNTED % (AUTO) 100 %; WHITE BLOOD COUNT 11.8 10^3/uL (4.0-10.5)
[2019-04-23 17:25] LABS: APPEARANCE,URINE CLEAR; BILIRUBIN,URINE NEGATIVE (NEGATIVE); COLOR,URINE YELLOW; GLUCOSE, URINE NEGATIVE (NEGATIVE); KETONES,URINE NEGATIVE (NEGATIVE); LEUKOCYTE ESTERASE,URINE NEGATIVE (NEGATIVE); NITRITE,URINE NEGATIVE (NEGATIVE); PROTEIN,URINE NEGATIVE (NEGATIVE); URINE SPECIFIC GRAVITY 1.009; UROBILINOGEN,URINE NEGATIVE mg/dL (<2.0)
[2019-04-23 17:40] LABS: ALKALINE PHOSPHATASE 49 U/L (38-126); ANION GAP 7 (5-19); ASPARTATE AMINO TRANSFERASE 23 U/L (17-59); BILIRUBIN,DIRECT 0.2 mg/dL (0.0-0.4); BILIRUBIN,TOTAL 0.7 mg/dL (0.2-1.3); BLOOD UREA NITROGEN 13 mg/dL (7-20); CALCIUM 9.1 mg/dL (8.4-10.2); CARBON DIOXIDE 28 mmol/L (22-30); CHLORIDE 105 mmol/L (98-107); GLUCOSE 94 mg/dL (75-110); POTASSIUM 4.6 mmol/L (3.6-5.0); TOTAL PROTEIN 6.6 g/dL (6.3-8.2)
[2019-04-23] MEDS ORDERED: DOXYCYCLINE HYCLATE 100 MG TABLET PO ONE (18:27)
[2019-04-23] MEDS ORDERED: LIDOCAINE 1% INJ-PF (10 MG/ML) 30 ML SDV IM ONE (18:27)
[2019-04-23] MEDS ORDERED: CEFTRIAXONE INJ 250 MG VIAL IM ONE (18:27)
--- NOTE | 2019-04-23 18:27 | ER Document Report ---
ED General - General Chief Complaint: Flank Pain Stated Complaint: LEFT FLANK PAIN,DISCOLORED URINE Time Seen by Provider: 04/23/19 14:32 Primary Care Provider: CHERRIE FU MD [NO LOCAL MD] - Follow up in 1 week (for urology follow up) REY HERNANDEZ MD [Primary Care Provider] - Follow up in 1 week Mode of Arrival: Ambulatory TRAVEL OUTSIDE OF THE [place] IN LAST 30 DAYS: No - HPI Notes: 43-year-old male to the emergency department with complaints of dysuria, left testicular pain, groin pain, left flank pain that began 4 days ago and has gotten progressively worse. States initially started with dysuria and then progressed to testicular pain flank pain. He does admit that he had unprotected sex several weeks ago. He does express concern over STD. Denies any fevers or chills. Denies any nausea or vomiting. - Related Data Allergies/Adverse Reactions: gabapentin [From Neurontin] Allergy (Verified 03/23/19 20:25) Swelling Gadolinium-Containing Contrast Medi Allergy (Verified 03/23/19 20:25) Rash, "sore joints", "brain fog" Home Medications: percocet 15mg four times a day. atrovastatin, buspar, trazadone Past Medical History - General Information source: Patient - Social History Smoking Status: Current Every Day Smoker Frequency of alcohol use: None Drug Abuse: Marijuana Family History: Reviewed & Not Pertinent Patient has suicidal ideation: No Patient has homicidal ideation: No - Past Medical History Cardiac Medical History: Reports: Hx Coronary Artery Disease, Hx Heart Attack - [place] JANUARY 2017, Hx Hypercholesterolemia, Hx Heart Murmur Denies: Hx Hypertension Pulmonary Medical History: Denies: Hx Asthma, Hx Bronchitis, Hx COPD, Hx Pneumonia, Hx Tuberculosis Neurological Medical History: Denies: Hx Cerebrovascular Accident, Hx Seizures Endocrine Medical History: Reports: Hx Diabetes Mellitus Type 2 Renal/ Medical History: Reports: Hx Kidney Stones - mar 2010. Denies: Hx B enign Prostatic Hyperplasia, Hx End Stage Renal Disease, Hx Peritoneal Dialysis Malignancy Medical History: Denies Hx Leukemia GI Medical History: Reports: Hx Gastritis, Hx Gastroesophageal Reflux Disease, Hx Hiatal Hernia. Denies: Hx Crohn's Disease, Hx Irritable Bowel, Hx Liver Failure, Hx Pancreatitis, Hx Ulcer Musculoskeletal Medical History: Reports Hx Arthritis, Denies Hx Fibromyalgia, Denies Hx Muscular Dystrophy, Reports Hx Musculoskeletal Deformity, Reports Hx Musculoskeletal Trauma Psychiatric Medical History: Reports: Hx Attention Deficit Hyperactivity Disorder, Hx Bipolar Disorder, Hx Depression, Hx Post Traumatic Stress Disorder Denies: Hx Schizophrenia Traumatic Medical History: Reports: Hx Fractures - hand, left foot Infectious Medical History: Denies: Hx HIV Past Surgical History: Reports: Hx Coronary Artery Bypass Graft, Hx Open Heart Surgery - 01/2017, Hx Umbilical Hernia, Hx Vascular Surgery - UMBILICAL HERNIA REPAIR. Denies: Hx Colostomy, Hx Pacemaker - Immunizations Immunizations up to date: Yes Hx Diphtheria, Pertussis, Tetanus Vaccination: Yes Review of Systems - Review of Systems Constitutional: denies: Chills, Fever EENT: No symptoms reported Cardiovascular: denies: Chest pain, Palpitations, Heart racing, Orthopnea, Dyspnea, Syncope, Dizziness, Lightheaded Respiratory: denies: Cough, Short of breath Gastrointestinal: denies: Abdominal pain, Diarrhea, Nausea, Vomiting Genitourinary: Dysuria, Flank pain Male Genitourinary: See HPI, Testicular pain Musculoskeletal: No symptoms reported Skin: No symptoms reported Hematologic/Lymphatic: No symptoms reported Neurological/Psychological: No symptoms reported -: Yes All other systems reviewed and negative Physical Exam - Vital signs Vitals: Temp Pulse Resp BP Pulse Ox 98.8 F 102 H 16 112/74 97 04/23/19 14:28 04/23/19 14:28 04/23/19 14:28 04/23/19 14:28 04/23/19 14:28 Interpretation: Normal - General General appearance: Appears well, Alert In distress: None - HEENT Head: Normocephalic, Atraumatic Eyes: Normal Pupils: PERRL - Respiratory Respiratory status: No respiratory distress Chest status: Nontender Breath sounds: Normal. No: Rales, Rhonchi, Wheezing Chest palpation: Normal - Cardiovascular Rhythm: Regular Heart sounds: Normal auscultation Murmur: No - Abdominal Inspection: Normal Distension: No distension Bowel sounds: Normal Tenderness: Nontender. No: Tender, McBurney's point, Castro's sign, Guarding, Rebound Organomegaly: No organomegaly - Genitourinary Notes: + mild TTP over the left groin and left testicle. no erythema or warmth to the groin. no skin changes. - Back Back: Normal, Nontender - Neurological Neuro grossly intact: Yes Cognition: Normal Orientation: AAOx4 [place] Coma Scale Eye Opening: Spontaneous [place] Coma Scale Verbal: Oriented [place] Coma Scale Motor: Obeys Commands [place] Coma Scale Total: 15 Speech: Normal Cranial nerves: Normal Cerebellar coordination: Normal Motor strength normal: LUE, RUE, LLE, RLE Additional motor exam normals: Equal boat patcher plastic. No: Pronator drift Sensory: Normal - Psychological Associated symptoms: Normal affect, Normal mood - Skin Skin Temperature: Warm Skin Moisture: Dry Skin Color: Normal Course - Re-evaluation Re-evalutation: Impression: Epididymitis, testicular pain. Concerning for a chlamydial or gonococcal infection. We will go ahead and start on doxycycline for 2 weeks. Patient agrees with the plan. We will also have him follow-up with urology and primary care. Encouraged to return if worsening symptoms. Patient agrees with the plan. - Vital Signs Vital signs: Temp Pulse Resp BP Pulse Ox 98.2 F 85 20 124/76 100 04/23/19 19:01 04/23/19 19:01 04/23/19 19:01 04/23/19 19:01 04/23/19 19:01 - Laboratory Result Diagrams: 04/23/19 16:52 04/23/19 16:52 Laboratory results interpreted by me: 04/23/19 16:52 WBC 11.8 H MCH 26.7 L RDW 14.4 H Absolute Neuts (auto) 8.9 H - Diagnostic Test Radiology reviewed: Image reviewed, Reports reviewed Discharge - Discharge Clinical Impression: Epididymitis, Left testicular pain, Dysuria Condition: Stable Disposition: HOME, SELF-CARE Instructions: Epididymitis ([facility]) Additional Instructions: Complete all antibiotics. Return if any worsening symptoms. Follow-up with urology. Push fluids. No sex until after antibiotics completed. Prescriptions: Doxycycline Monohydrate 100 mg PO BID #28 tablet Naproxen [Naprosyn] 500 mg PO BID #20 tablet Referrals: REY HERNANDEZ MD [Primary Care Provider] - Follow up in 1 week CHERRIE FU MD [NO LOCAL MD] - Follow up in 1 week (for urology follow up)
[2019-04-23 18:52] LABS: CHLAM PCR NOT DETECTED (NOT DETECT)
[2019-04-23 19:03] VITALS: BP 124/76
== END 2019-04-23 19:03 | disposition home or self-care (01) ==
LOC: ER 13:59
DX: N45.1 Epididymitis (principal); N50.812 Left testicular pain; R30.0 Dysuria; E78.00 Pure hypercholesterolemia, unspecified; I25.10 Atherosclerotic heart disease of native coronary artery without angina pectoris; E11.9 Type 2 diabetes mellitus without complications; F32.9 Major depressive disorder, single episode, unspecified; Z20.2 Contact with and (suspected) exposure to infections with a predominantly sexual mode of transmission; Z79.891 Long term (current) use of opiate analgesic; Z79.899 Other long term (current) drug therapy; Z88.6 Allergy status to analgesic agent; Z91.041 Radiographic dye allergy status
CPT/HCPCS: 36415; 76775; 76870; 80053; 81001; 85025; 87491; 87591; 93976; 96372; 99284; J0696; J3490

== ENCOUNTER 2019-06-06 11:28 | Emergency (ER) | payer MEDICARE, MEDICAID ==
--- NOTE | 2019-06-06 11:36 | ER Document Report ---
ED Medical Screen (RME) - General Stated Complaint: SWOLLEN ARM Primary Care Provider: REY HERNANDEZ MD [Primary Care Provider] - Follow up as needed Notes: Patient is a 43-year-old male with a past medical history of CABG and hypertension who presents to the emergency department the chief complaint of right forearm swelling and pain. He states he was recently playing football with a "kid" and tackled him he appears. He states after that he started having some pain and swelling in the right wrist. He states he went to [facility]" and had an x-ray that was read as normal. He states however the arm continues to swell and is painful. Reports swelling from the wrist all the way up to the elbow involving the entire forearm with tenderness. Denies any numbness or tingling of the hand or fingers. No new injury, fall or trauma. Patient denies IV drug abuse. I have treated and performed a rapid initial assessment of this patient. A comprehensive ED assessment and evaluation of the patient, analysis of test results and completion of medical decision making process will be conducted by additional ED providers. PHYSICAL EXAMINATION: GENERAL: Well-appearing, well-nourished and in no acute distress. A&Ox4. Answers questions appropriately. TRAVEL OUTSIDE OF THE [place] IN LAST 30 DAYS: No - Related Data Allergies/Adverse Reactions: gabapentin [From Neurontin] Allergy (Verified 03/23/19 20:25) Swelling Gadolinium-Containing Contrast Medi Allergy (Verified 03/23/19 20:25) Rash, "sore joints", "brain fog" Past Medical History - Past Medical History Cardiac Medical History: Reports: Hx Coronary Artery Disease, Hx Heart Attack - [place] JANUARY 2017, Hx Hypercholesterolemia, Hx Heart Murmur Denies: Hx Hypertension Pulmonary Medical History: Denies: Hx Asthma, Hx Bronchitis, Hx COPD, Hx Pneumonia, Hx Tuberculosis Neurological Medical History: Denies: Hx Cerebrovascular Accident, Hx Seizures Endocrine Medical History: Reports: Hx Diabetes Mellitus Type 2 Renal/ Medical History: Reports: Hx Kidney Stones - mar 2010. Denies: Hx Benign Prostatic Hyperplasia, Hx End Stage Renal Disease, Hx Peritoneal Dialysis Malignancy Medical History: Denies Hx Leukemia GI Medical History: Reports: Hx Gastritis, Hx Gastroesophageal Reflux Disease, Hx Hiatal Hernia. Denies: Hx Crohn's Disease, Hx Irritable Bowel, Hx Liver Failure, Hx Pancreatitis, Hx Ulcer Musculoskeltal Medical History: Reports Hx Arthritis, Denies Hx Fibromyalgia, Denies Hx Muscular Dystrophy, Reports Hx Musculoskeletal Deformity, Reports Hx Musculoskeletal Trauma Psychiatric Medical History: Reports: Hx Attention Deficit Hyperactivity Disorder, Hx Bipolar Disorder, Hx Depression, Hx Post Traumatic Stress Disorder Denies: Hx Schizophrenia Traumatic Medical History: Reports: Hx Fractures - hand, left foot Infectious Medical History: Denies: Hx HIV Past Surgical History: Reports: Hx Coronary Artery Bypass Graft, Hx Open Heart Surgery - 01/2017, Hx Umbilical Hernia, Hx Vascular Surgery - UMBILICAL HERNIA REPAIR. Denies: Hx Colostomy, Hx Pacemaker - Immunizations Immunizations up to date: Yes Hx Diphtheria, Pertussis, Tetanus Vaccination: Yes Doctor's Discharge - Discharge Referrals: REY HERNANDEZ MD [Primary Care Provider] - Follow up as needed
[2019-06-06 11:37] VITALS: BP 126/78
--- NOTE | 2019-06-06 12:02 | RADIOLOGY REPORT (SQ) ---
EXAM DESCRIPTION: WRIST RIGHT 3 VIEWS COMPLETED DATE/TIME: 06/06/2019 11:53 am REASON FOR STUDY: pain, inj COMPARISON: None. NUMBER OF VIEWS: Three views. TECHNIQUE: AP, lateral, and oblique radiographic images acquired of the right wrist. LIMITATIONS: None. FINDINGS: MINERALIZATION: Normal. BONES: No acute fracture or dislocation. No worrisome bone lesions. Normal alignment. SOFT TISSUES: No soft tissue swelling. No foreign body. OTHER: No other significant finding. IMPRESSION: NEGATIVE STUDY OF THE RIGHT WRIST. NO RADIOGRAPHIC EVIDENCE OF ACUTE INJURY. TECHNICAL DOCUMENTATION: JOB ID: [id number] 2010 [employer]- All Rights Reserved Reading location - IP/workstation name: [email or web address]
--- NOTE | 2019-06-06 12:08 | ER Document Report ---
ED Extremity Problem, Upper - General Chief Complaint: Arm Pain Stated Complaint: SWOLLEN ARM Time Seen by Provider: 06/06/19 12:00 Primary Care Provider: REY HERNANDEZ MD [Primary Care Provider] - Follow up as needed Notes: CHIEF COMPLAINT: Right forearm swelling for 1 week HPI: 43-year-old male with history of double bypass who is on Plavix currently presenting for right forearm swelling for 1 week. Patient states he noticed some discomfort and swelling to the posterior aspect near the elbow 1 week ago no redness no fever. Patient states that he was then playing football with a teenager where he was using the arm and noticed increased swelling with mild discomfort after this. No chest pain shortness of breath. No history of clotting problems or blood clots. States he went to an outside ER 3 days ago had an x-ray that he states was negative but continues to have the swelling so wanted to have it further evaluated ROS: See HPI - all other systems were reviewed and are otherwise negative Constitutional: no fever Eyes: no drainage, no blurred vision ENT: no runny nose, no sore throat Cardiovascular: no chest pain Resp: no SOB, no cough GI: no vomiting, no diarrhea, no abdominal pain : no dysuria Integumentary: no rash Allergy: no hives Musculoskeletal: + extremity pain or swelling Neurological: no numbness/tingling, no weakness MEDICATIONS: I agree with the patient medications as charted by the RN. ALLERGIES: I agree with the allergies as charted by the RN. PAST MEDICAL HISTORY/PAST SURGICAL HISTORY: Reviewed and agree as charted by RN. SOCIAL HISTORY: Reviewed and agree as charted by RN. FAMILY HISTORY: No significant familial comorbid conditions directly related to patient complaint EXAM: Reviewed vital signs as charted by RN. CONSTITUTIONAL: Alert and oriented and responds appropriately to questions. Well-appearing; well-nourished HEAD: Normocephalic; atraumatic EYES: PERRL; Conjunctivae clear, sclerae non-icteric ENT: normal nose; no rhinorrhea; moist mucous membranes; pharynx without lesions noted, no uvula edema or deviation, no tonsillar hypertrophy, phonation normal NECK: Supple without meningismus; non-tender; no cervical lymphadenopathy, no masses CARD: RRR; no murmurs, no clicks, no rubs, no gallops; symmetric distal pulses RESP: Normal chest excursion without splinting or tachypnea; breath sounds clear and equal bilaterally; no wheezes, no rhonchi, no rales, pulse oximetry 98% on room air not hypoxic ABD/GI: Normal bowel sounds; non-distended; soft, non-tender, no rebound, no guarding; no palpable organomegaly or masses. BACK: The back appears normal and is non-tender to palpation, there is no CVA tenderness EXT: Normal ROM in all joints; there is nonpitting edema to the right forearm relative to the left. There is mild tenderness on the volar proximal aspect of the right forearm on exam. There is no induration. There is no erythema. Full range of motion at the elbow and the wrist. Radial and ulnar pulses are present in the right wrist. Sensation is intact in the fingers with capillary refill less than 3 seconds. Patient is able to fully flex and extend the fingers of the right hand as well as abduct the thumb SKIN: Normal color for age and race; warm; dry; good turgor; no acute lesions noted NEURO: Moves all extremities equally; Motor and sensory function intact PSYCH: The patient's mood and manner are appropriate. Grooming and personal hygiene are appropriate. MDM: 43-year-old male with swelling of the right forearm. There does appear to be soft tissue swelling, x-ray of the wrist done via the triage process was negative for fracture, will obtain x-ray of the elbow to evaluate for radial head fracture given the swelling of the entire forearm, there is no erythema or induration suggesting an abscess or cellulitis at this time. Will obtain a Doppler study to evaluate for blood clot although patient is on Plavix. TRAVEL OUTSIDE OF THE [place] IN LAST 30 DAYS: No - Related Data Allergies/Adverse Reactions: gabapentin [From Neurontin] Allergy (Verified 03/23/19 20:25) Swelling Gadolinium-Containing Contrast Medi Allergy (Verified 03/23/19 20:25) Rash, "sore joints", "brain fog" Past Medical History - Social History Smoking Status: Current Every Day Smoker Family History: Reviewed & Not Pertinent Patient has suicidal ideation: No Patient has homicidal ideation: No - Past Medical History Cardiac Medical History: Reports: Hx Coronary Artery Disease, Hx Heart Attack - [place] JANUARY 2017, Hx Hypercholesterolemia, Hx Heart Murmur Denies: Hx Hypertension Pulmonary Medical History: Denies: Hx Asthma, Hx Bronchitis, Hx COPD, Hx Pneumonia, Hx Tuberculosis Neurological Medical History: Denies: Hx Cerebrovascular Accident, Hx Seizures Endocrine Medical History: Reports: Hx Diabetes Mellitus Type 2 Renal/ Medical History: Reports: Hx Kidney Stones - mar 2010. Denies: Hx Benign Prostatic Hyperplasia, Hx End Stage Renal Disease, Hx Peritoneal Dialysis Malignancy Medical History: Denies Hx Leukemia GI Medical History: Reports: Hx Gastritis, Hx Gastroesophageal Reflux Disease, Hx Hiatal Hernia. Denies: Hx Crohn's Disease, Hx Irritable Bowel, Hx Liver Failure, Hx Pancreatitis, Hx Ulcer Musculoskeletal Medical History: Reports Hx Arthritis, Denies Hx Fibromyalgia, Denies Hx Muscular Dystrophy, Reports Hx Musculoskeletal Deformity, Reports Hx Musculoskeletal Trauma Psychiatric Medical History: Reports: Hx Attention Deficit Hyperactivity Disorder, Hx Bipolar Disorder, Hx Depression, Hx Post Traumatic Stress Disorder Denies: Hx Schizophrenia Traumatic Medical History: Reports: Hx Fractures - hand, left foot Infectious Medical History: Denies: Hx HIV Past Surgical History: Reports: Hx Coronary Artery Bypass Graft, Hx Open Heart Surgery - 01/2017, Hx Umbilical Hernia, Hx Vascular Surgery - UMBILICAL HERNIA REPAIR. Denies: Hx Colostomy, Hx Pacemaker - Immunizations Immunizations up to date: Yes Hx Diphtheria, Pertussis, Tetanus Vaccination: Yes Physical Exam - Vital signs Vitals: Temp Pulse Resp BP Pulse Ox 97.5 F 96 20 126/78 H 100 06/06/19 11:31 06/06/19 11:31 06/06/19 11:31 06/06/19 11:31 06/06/19 11:31 Course - Re-evaluation Re-evalutation: 06/06/19 13:48 Patient's lab work does not show acute emergent abnormalities other than a mildly elevated CK total. Kidney function was normal. His Doppler study is negative for DVT. X-ray imaging of the elbow and wrist negative for fracture. This may be soft tissue contusion, muscular injury, will treat patient's discomfort and refer to orthopedics follow-up - Vital Signs Vital signs: Temp Pulse Resp BP Pulse Ox 97.5 F 96 20 126/78 H 100 06/06/19 11:31 06/06/19 11:31 06/06/19 11:31 06/06/19 11:31 06/06/19 11:31 - Laboratory Result Diagrams: 06/06/19 12:13 03/26/20 12:13 Laboratory results interpreted by me: 06/06/19 06/06/19 12:13 12:13 Hgb 13.1 L MCH 26.7 L RDW 14.4 H Creatine Kinase 577 H Discharge - Discharge Clinical Impression: Forearm swelling, Elevated creatine kinase Condition: Stable Disposition: HOME, SELF-CARE Additional Instructions: Cool compresses 3-4 times daily to help with swelling and discomfort. Hydrate well at home. Pain medication as prescribed no driving if taking narcotics for pain. Follow-up closely with orthopedics for further evaluation and treatment call for appointment Prescriptions: Tramadol HCl [Ultram 50 mg Tablet] 50 mg PO Q6H PRN #12 tab PRN Reason: Referrals: REY HERNANDEZ MD [Primary Care Provider] - Follow up as needed
--- NOTE | 2019-06-06 12:38 | RADIOLOGY REPORT (SQ) ---
EXAM DESCRIPTION: ELBOW RIGHT OVER 2 VIEWS COMPLETED DATE/TIME: 06/06/2019 12:28 pm REASON FOR STUDY: swelling forearm COMPARISON: None. NUMBER OF VIEWS: Four views. TECHNIQUE: AP, lateral, and both oblique radiographic images acquired of the right elbow. LIMITATIONS: None. FINDINGS: MINERALIZATION: Normal. BONES: No acute fracture or dislocation. No worrisome bone lesions. JOINT: No effusion. SOFT TISSUES: Soft tissue edema. OTHER: No other significant finding. IMPRESSION: Soft tissue edema. No underlying fracture. TECHNICAL DOCUMENTATION: JOB ID: [id number] 2010 [employer]- All Rights Reserved Reading location - IP/workstation name: [email or web address]
[2019-06-06 12:47] LABS: PROTHROMBIN TIME 12.2 SEC (11.4-15.4)
[2019-06-06 13:06] LABS: MEAN CORPUSCULAR VOLUME 80 fl (80-97)
[2019-06-06 13:07] LABS: ABSOLUTE MONOCYTES (AUTO) 0.8 10^3/uL (0.1-1.4); ABSOLUTE NEUT (AUTO) 6.6 10^3/uL (1.7-8.2); BASOPHILS % (AUTO) 0.5 % (0-2); EOSINOPHILS % (AUTO) 2.2 % (0-6); LYMPHOCYTES % (AUTO) 22.5 % (13-45); MONOCYTES % (AUTO) 8.3 % (3-13); TOTAL CELLS COUNTED % (AUTO) 100 %
[2019-06-06 13:08] LABS: ABSOLUTE BASOPHILS # (AUTO) 0.1 10^3/uL (0.0-0.2); ABSOLUTE EOSINOPHILS # (AUTO) 0.2 10^3/uL (0.0-0.6); ABSOLUTE LYMPHOCYTES (AUTO) 2.2 10^3/uL (0.5-4.7); MEAN CORPUSCULAR HEMOGLOBIN 26.7 pg (27.0-33.4); MEAN CORPUSCULAR HGB CONC 33.5 g/dL (32.0-36.0); PLATELET COUNT 260 10^3/uL (150-450); RED BLOOD COUNT 4.92 10^6/uL (4.35-5.55); RED CELL DISTRIBUTION WIDTH 14.4 % (11.5-14.0)
[2019-06-06 13:09] LABS: HEMATOCRIT 39.2 % (37.9-51.0); HEMOGLOBIN 13.1 g/dL (13.5-17.0)
[2019-06-06 13:19] LABS: ALBUMIN 4.1 g/dL (3.5-5.0); ALKALINE PHOSPHATASE 66 U/L (38-126); ANION GAP 6 (5-19); ASPARTATE AMINO TRANSFERASE 31 U/L (17-59); BILIRUBIN,DIRECT 0.3 mg/dL (0.0-0.4); BILIRUBIN,TOTAL 0.7 mg/dL (0.2-1.3); BLOOD UREA NITROGEN 16 mg/dL (7-20); CARBON DIOXIDE 30 mmol/L (22-30); CHLORIDE 101 mmol/L (98-107); CREATINE KINASE 577 U/L (55-170); GLUCOSE 91 mg/dL (75-110); POTASSIUM 4.3 mmol/L (3.6-5.0); TOTAL PROTEIN 6.7 g/dL (6.3-8.2)
--- NOTE | 2019-06-06 14:46 | RADIOLOGY REPORT (SQ) ---
EXAM DESCRIPTION: VENOUS UNILATERAL UPPER COMPLETED DATE/TIME: 06/06/2019 2:36 pm REASON FOR STUDY: right forearm swelling COMPARISON: None. TECHNIQUE: Dynamic and static thomason scale and color images acquired of the right arm venous system. S elected spectral images acquired with additional compression and augmentation maneuvers. The contrala teral subclavian vein and internal jugular vein were also imaged. Images stored on PACS. LIMITATIONS: None. FINDINGS: INTERNAL JUGULAR VEIN: Normal phasicity, compression, augmentation. No visualized echogeni c material on thomason scale. No defects on color images. Comparison opposite side normal. SUBCLAVIAN VEIN: Normal compression, augmentation. No visualized echogenic material on thomason scale. No defects on color images. AXILLARY VEIN: Normal compression, augmentation. No visualized echogenic material on thomason scale. No d efects on color images. BRACHIAL VEIN: Normal compression, augmentation. No visualized echogenic material on thomason scale. No d efects on color images. BASILIC VEIN: Normal compression, augmentation. No visualized echogenic material on thomason scale. No de fects on color images. CEPHALIC VEIN: Normal compression, augmentation. No visualized echogenic material on thomason scale. No d efects on color images. OTHER: No other significant finding. CONTRALATERAL SUBCLAVIAN VEIN AND INTERNAL JUGULAR VEIN: Normal phasicity, compression and augmentation. No visualized echogenic material on thomason scale. No de fects on color images. IMPRESSION: NO EVIDENCE DVT OR SVT IN THE RIGHT ARM. TECHNICAL DOCUMENTATION: JOB ID: [id number] 2010 [employer]- All Rights Reserved Reading location - IP/workstation name: [email or web address]
== END 2019-06-06 14:08 | disposition home or self-care (01) ==
LOC: ER 11:28
DX: M79.89 Other specified soft tissue disorders (principal); R79.89 Other specified abnormal findings of blood chemistry; I25.10 Atherosclerotic heart disease of native coronary artery without angina pectoris; E11.9 Type 2 diabetes mellitus without complications; F17.200 Nicotine dependence, unspecified, uncomplicated; Z79.02 Long term (current) use of antithrombotics/antiplatelets; Z95.1 Presence of aortocoronary bypass graft; Z88.6 Allergy status to analgesic agent; Z91.041 Radiographic dye allergy status
CPT/HCPCS: 36415; 80053; 82550; 85025; 85610; 93971; 99284